=== PATIENT | male | born 1955 | race Caucasian/White ===

== ENCOUNTER → 2016-09-05 | Outpatient (CLI) | payer BC ==
[~2016-09-05] MED LIST: ASP81TEC PO; ATEN25TA PO; ATOR40TA PO; CEFU500T5 PO; CLOP75TA PO; FRSM40T PO; LISI2.5T56 PO; OMEG1CAP74 PO; POTA10CA43 PO; PRAV40TA PO; PRAV80TA2 PO; PROP1TAB77 PO; SPIR25TA3 PO; WRF5T PO
== END ==
LOC: RAD 14:23
PROVIDERS: ATTEND Nurse Practitioner Family
DX: I25.10 Atherosclerotic heart disease of native coronary artery without angina pectoris (principal); I65.23 Occlusion and stenosis of bilateral carotid arteries
CPT/HCPCS: 93923

== ENCOUNTER → 2016-09-15 | Outpatient (CLI) | payer BC ==
[2016-09-15 07:13] LABS: ALANINE AMINOTRANSFERASE 34 U/L (0-55); ALBUMIN 3.9 G/DL (3.2-4.5); ANION GAP 9 MMOL/L (5-14); ASPARTATE AMINO TRANSFERASE 25 U/L (5-34); BILIRUBIN,TOTAL 0.9 MG/DL (0.1-1.0); BLOOD UREA NITROGEN 20 MG/DL (7-18); BUN/CREATININE RATIO 17; CALCIUM 8.8 MG/DL (8.5-10.1); CARBON DIOXIDE 24 MMOL/L (21-32); CHLORIDE 106 MMOL/L (98-107); CHOLESTEROL 154 MG/DL (< 200); CREATININE SERUM 1.18 MG/DL (0.60-1.30); DIRECT LDL 87 MG/DL (1-129); GFR ESTIMATED > 60; GLUCOSE 104 MG/DL (70-105); POTASSIUM 4.4 MMOL/L (3.6-5.0); SODIUM 139 MMOL/L (135-145); TOTAL PROTEIN 6.4 G/DL (6.4-8.2); TRIGLYCERIDES 123 MG/DL (<150); VLDL CHOLESTEROL 25 MG/DL (5-40)
== END ==
LOC: LAB 06:18
PROVIDERS: ATTEND Nurse Practitioner Family
DX: I25.10 Atherosclerotic heart disease of native coronary artery without angina pectoris (principal); I65.23 Occlusion and stenosis of bilateral carotid arteries; E78.4 Other hyperlipidemia; I11.0 Hypertensive heart disease with heart failure; I50.22 Chronic systolic (congestive) heart failure; Z72.0 Tobacco use
CPT/HCPCS: 36415; 80053; 80061; 83735

== ENCOUNTER → 2017-03-16 | Outpatient (CLI) | payer BC ==
[2017-03-16 07:42] LABS: ALBUMIN 4.1 GM/DL (3.2-4.5); CREATININE SERUM 1.24 MG/DL (0.60-1.30); POTASSIUM 4.6 MMOL/L (3.6-5.0)
== END ==
LOC: LAB 06:56
PROVIDERS: ATTEND Nurse Practitioner Family
DX: I25.10 Atherosclerotic heart disease of native coronary artery without angina pectoris (principal)
CPT/HCPCS: 36415; 80053; 80061

== ENCOUNTER → 2017-04-20 | Outpatient (CLI) | payer BC | LOC: CARD 09:05 | PROVIDERS: ATTEND Nurse Practitioner Family | DX: I25.10 Atherosclerotic heart disease of native coronary artery without angina pectoris (principal); I11.0 Hypertensive heart disease with heart failure; I50.22 Chronic systolic (congestive) heart failure; I25.5 Ischemic cardiomyopathy | CPT/HCPCS: 93306 ==

== ENCOUNTER 2017-10-15 07:49 | Day surgery (SDC) | payer BC ==
[2017-10-15] VITALS (12 sets, daily range): BP systolic 117–162; BP diastolic 63–90
[~2017-10-15] VITALS: Ht 182.9 cm; Wt 108.6 kg
--- OUTSIDE RECORDS SUMMARY | 2017-10-15 07:57 | XMS REPORT ---
Author Author ANTHONY HAQ [facility] eClinicalWorks Address Unknown Phone Unavailable Care Team Providers Care School Teacher Name Role Phone ANTHONY HAQ CP Unavailable Allergies, Adverse Reactions, Alerts Substance Reaction Event Type N.K.D.A. 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 [address]-97 300 MG Orally Three times a day December 18, 2014 1 capsule Fish Oil Concentrate [facility] [address]26 1000 MG Orally 2 times a day [address] [facility] [address]-74 5 MG Orally Once a day 1-1.[address] [facility] [address]-27 50-300-40 MG Orally every 4 hrs December 14, 2014 1 capsule as needed Lipitor [facility] [address]-73 40 MG Orally Once a day [address] [facility] [address]-91 10 MG Orally Once a day 1 tablet Procedures Procedure Coding System Code Date Office Visit, Est Pt., Level 2 CPT-4 24763 Apr 22, 2015 Vital Signs Date/Time: Apr 22, 2015 Temperature 98.0 F Weight 229 lbs Height 72 in BMI 31.05 Index Blood Pressure Diastolic 88 mmHg Blood Pressure Systolic 118 mmHg Cardiac Monitoring Heart Rate 70 bpm Results No Known Results Summary Purpose eClinicalWorks Submission
--- OUTSIDE RECORDS SUMMARY | 2017-10-15 07:57 | XMS REPORT ---
Author Author ANTHONY HAQ Organization [facility] [place] [facility] Address [address] [place] [address] Care Team Providers Care Drop Man Name Role Phone ANTHONY HAQ Unavailable PROBLEMS Type Condition ICD9-CM Code NTH08-IP Code Onset Dates Condition Status SNOMED Code Problem 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 Active 291788740046653 Problem Arteriosclerotic coronary artery disease I25.10 Active 967756622588986 Problem Blood thinned due to long-term anticoagulant use Z79.01 Active 188673734 Problem History of pulmonary embolus (PE) Z86.711 Active [id number] ALLERGIES No Information ENCOUNTERS Encounter Location Date Diagnosis [place] [id number] [place] [address] 73797- 4668 Aug, Saddle embolus of pulmonary artery with acute cor pulmonale I26.02 [place] [address] [place] [id number] [place] [address] 44455- 7384 Jul, Saddle embolus of pulmonary artery with acute cor pulmonale I26.02 ; Blood thinned due to long-term anticoagulant use Z79.01 and Arteriosclerotic coronary artery disease I25.10 [place] [address] [place] [address] 04574- 1433 Jun, Saddle embolus of pulmonary artery with acute cor pulmonale I26.02 [place] [address] [place] [id number] [place] [address] 82639- 1335 Jun, 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 [place] [address] [place] [id number] [place] [address] 03539- 7785 May, Saddle embolus of pulmonary artery with acute cor pulmonale I26.02 [facility] [place] [facility] [address], [place] [address] 83[address] 16 Apr, 2017 Saddle embolus of pulmonary artery with acute cor pulmonale I26.02 [facility] [place] [facility] [address], [place] [address] 8867 15 Mar, 2017 Saddle embolus of pulmonary artery with acute cor pulmonale I26.02 [facility] [address] [place] [id number] [place] [address] [id number] Mar, Dental caries K02.9 [facility] [address] [place] [address] [id number] [place] [address] [phone] Jan, Dental examination Z01.20 [facility] [facility] [address] [place] [id number] [place] [address] 47868- 4524 Jan, Saddle embolus of pulmonary artery with acute cor pulmonale I26.02 ; Blood thinned due to long-term anticoagulant use Z79.01 and Arteriosclerotic coronary artery disease I25.10 [facility] [place] [facility] [address] [place] [address] 63625- 3368 Dec, Saddle embolus of pulmonary artery with acute cor pulmonale I26.02 [facility] [place] [facility] [address], [place] [address] 5881 Nov, Saddle embolus of pulmonary artery with acute cor pulmonale I26.02 [facility] [place] [facility] [address], [place] [address] 8323 October, [facility] [place] [facility] [address] [place] [address] 34962- 2356 October, Saddle embolus of pulmonary artery with acute cor pulmonale I26.02 [facility] [place] [facility] [address], [place] [address] 9049 Sep, Saddle embolus of pulmonary artery with acute cor pulmonale I26.02 [facility] [address] [id number] Aug, Dental examination Z01.20 [facility] [facility] [address] [place] [address] 43315- 7762 Aug, Saddle embolus of pulmonary artery with acute cor pulmonale I26.02 [place] [address] [place] [id number] [place] [address] 41556- 2744 Aug, Saddle embolus of pulmonary artery with acute cor pulmonale I26.02 [place] [address] [place] [id number] [place] [address] 78984- 6916 Jul, Saddle embolus of pulmonary artery with acute cor pulmonale I26.02 [place] [address] [place] [id number] [place] [address] 28541- 1934 Jun, 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 [place] [address] [place] [id number] [place] [address] 40551- 6987 May, Blood thinned due to long-term anticoagulant use Z79.01 [place] [address] [place] [id number] [place] [address] 30733- 3351 May, Saddle embolus of pulmonary artery with acute cor pulmonale I26.02 and Arteriosclerotic coronary artery disease I25.10 [place] [address] [place] [id number] [place] [address] 95835- 5838 Apr, Saddle embolus of pulmonary artery with acute cor pulmonale I26.02 [facility] [facility] [address] [place] [address] 28855- 3364 Mar, Saddle embolus of pulmonary artery with acute cor pulmonale I26.02 [place] [address] [place] [id number] [place] [address] 84704- 3195 Jan, [place] [address] [place] [id number] [place] [address] 32750- 8728 Jan, Encounter for immunization Z23 and History of pulmonary embolus (PE) Z86.711 [place] [address], [place] [address]- 9970 12 Jan, 2016 [place] [address] [place] [address] 61099- 9705 Jan, Saddle embolus of pulmonary artery with acute cor pulmonale I26.02 [place] [address], [place] [address]- 3400 Jan, Saddle embolus of pulmonary artery with acute cor pulmonale I26.02 [place] [address] [place] [address] 04745- 2089 14 Dec, 2015 Blood thinned due to long-term anticoagulant use Z79.01 and History of pulmonary embolus (PE) Z86.711 [place] [address] [place] [address] 44974- 0426 14 Dec, 2015 Blood thinned due to long-term anticoagulant use Z79.01 and History of pulmonary embolus (PE) Z86.711 [place] [address] [place] [address] 56821- 4155 October, Blood thinned due to long-term anticoagulant use Z79.01 [place] [address] [place] [address] 01312- 7477 Sep, History of pulmonary embolus (PE) Z86.711 [place] [address], [place] [address]- 3486 Sep, [place] [address] [place] [address] 88688- 8478 Sep, Saddle embolus of pulmonary artery 415.13 ; Abnormal blood chemistry 790.6 and Hyperlipidemia E78.5 [place] [address] [place] [address] 24516- 3084 14 Aug, 2015 Saddle embolus of pulmonary artery 415.13 and Abnormal blood chemistry 790.6 [place] [address] [place] [address] 80895- 7078 10 Aug, 2015 Saddle embolus of pulmonary artery 415.13 and Abnormal blood chemistry 790.6 [place] [address] [place] [id number] [place] [address] 09208- 1322 Jul, Saddle embolus of pulmonary artery 415.13 and Abnormal blood chemistry 790.6 [place] [address] [place] [id number] [place] [address] 13242- 4979 Jun, Saddle embolus of pulmonary artery 415.13 and Abnormal blood chemistry 790.6 [place] [address] 75894- 8498 May, Saddle embolus of pulmonary artery 415.13 and Abnormal blood chemistry 790.6 [place] [address] [place] [id number] [place] [address] 51600- 0900 Apr, Visual field defect H53.40 [place] [address] 82565- 3911 Apr, Flu vaccine need Z23 [place] [address] 71484- 5916 Apr, Saddle embolus of pulmonary artery 415.13 and Abnormal blood chemistry 790.6 [place] [address] [place] [id number] [place] [address] 14839- 1421 Mar, Saddle embolus of pulmonary artery 415.13 and Abnormal blood chemistry 790.6 [place] [address] [place] [id number] [place] [address] 44965- 4339 Jan, Saddle embolus of pulmonary artery 415.13 and Abnormal blood chemistry 790.6 [place] [address] [place] [id number] [place] [address] 78287- 0479 Dec, Saddle embolus of pulmonary artery 415.13 and Abnormal blood chemistry 790.6 [place] [address] [place] [id number] [place] [address] 25613- 6920 Nov, [place] [address] [place] [address]- 6686 15 Nov, 2014 Headache 784.0 [facility] [address] [place] [id number] [place] [address] 69313- 0496 12 Nov, 2014 [facility] [facility] [address] [place] [id number] [place] [address] 78202 2546 10 Nov, 2014 Saddle embolus of pulmonary artery 415.13 and Abnormal blood chemistry 790.6 [facility] [facility] [address] [place] [id number] [place] [address] 54521- 8696 10 Nov, 2014 [facility] [facility] [address] [place] [address] 67327- 5176 10 Nov, 2014 Saddle embolus of pulmonary artery 415.13 and Abnormal blood chemistry 790.6 [facility] [address] [place] [id number] [place] [address] 80457- 5953 October, Abnormal blood chemistry 790.6 and Saddle embolus of pulmonary artery 415.13 [facility] [facility] [address] [place] [id number] [place] [address] 42248- 1347 14 Sep, 2014 [facility] [facility] [address] [place] [address] 66400- 4031 Sep, [facility] [place] [facility] [address] [place] [address] 28581- 2564 Aug, [facility] [place] [facility] [address] [place] [address] 10325- 7296 Aug, [facility] [place] [facility] [address] [place] [address] 19839- 0410 Aug, [facility] [place] [facility] [address] [place] [address] 82291- 3239 Aug, [facility] [place] [facility] [address] [place] [id number] [place] [address] 05216- 0852 11 Aug, 2014 [facility] [place] [facility] [address] [place] [address] 89439- 3102 Aug, [facility] [place] [facility] [address] [id number] [place] [address]- 7509 Jul, [facility] [place] [facility] [address] [id number] [place] [address]- 9628 Jul, [facility] [place] [facility] [address] [id number] [place] [address]- 9408 Jun, [facility] [place] [facility] [address] [id number] [place] [address]- 9933 Jun, [facility] [place] [facility] [address] [id number] [place] [address]- 1022 May, [facility] [place] [facility] [address] [id number] [place] [address]- 8501 May, [facility] [place] [facility] [address] [id number] [place] [address]- 4470 Apr, [facility] [place] [facility] [address] [id number] [place] [address]- 5370 Apr, [facility] [place] [facility] [address] [id number] [place] [address]- 7905 29 Mar, 2014 [facility] [place] [facility] [address] [id number] [place] [address]- 8442 29 Mar, 2014 [facility] [place] [facility] [address] [id number] [place] [address]- 4664 15 Mar, 2014 [facility] [place] [facility] [address] [id number] [place] [address]- 8258 15 Mar, 2014 [facility] [place] [facility] [address] [id number] [place] [address]- 3070 05 Mar, 2014 [facility] [place] [facility] [address] [id number] [place] [address]- 254 05 Mar, 2014 [facility] [place] [facility] [address] [id number] [place] [address]- 9737 02 Mar, 2014 [facility] [place] [facility] [address] [id number] [place] [address]- 7515 Mar, [facility] [place] [facility] [address] [id number] [place] [address]- 5570 Jan, [facility] [place] [facility] [address] [id number] [place] [address]- 2832 Jan, [facility] [place] [facility] [address] [id number] [place] [address]- 2348 Jan, [facility] [place] [facility] [address] [id number] [place] [address]- 1839 Jan, [facility] [place] [facility] [address] [id number] [place] [address]- 8536 Dec, [facility] [place] [facility] [address] [id number] [place] [address]- 7955 Dec, [facility] [place] [facility] [address] [id number] [place] [address]- 8476 Dec, [facility] [place] [facility] [address] [id number] [place] [address]- 4117 Dec, [facility] [place] [facility] [address] [id number] [place] [address]- 8612 Dec, [facility] [place] [facility] [address] [id number] [place] [address]- 1159 Dec, [facility] [place] [facility] [address] [id number] [place] [address]- 0759 Dec, [facility] [place] [facility] [address] [id number] [place] [address]- 2758 Dec, [facility] [place] [facility] [address] [id number] [place] [address]- 9472 Dec, [facility] [place] [facility] [address] [id number] [place] [address]- 8279 Dec, [facility] [place] [facility] [address] [id number] [place] [address]- 4458 Dec, [facility] [place] [facility] [address] [id number] [place] [address]- 2500 Dec, [facility] [address] [id number] [place] [address]- 0945 Nov, [facility] [place] [facility] [address] [id number] [place] [address]- 2554 Nov, [facility] [place] [facility] [address] [id number] [place] [address]- 5939 October, [facility] [place] [facility] [address] [id number] [place] [address]- 4359 October, [facility] [place] [facility] [address] [id number] [place] [address]- 4670 Sep, [facility] [place] [facility] [address] [id number] [place] [address]- 4545 Sep, [facility] [place] [facility] [address] [id number] [place] [address]- 8788 Aug, [facility] [place] [facility] [address] [id number] [place] [address]- 1624 Aug, [facility] [place] [facility] [address] [id number] [place] [address]- 8248 Aug, [facility] [place] [facility] [address] [id number] [place] [address]- 8886 Aug, [facility] [place] [facility] [address] [id number] [place] [address]- 6392 Aug, [facility] [place] [facility] [address] [id number] [place] [address]- 8213 Aug, [facility] [place] [facility] [address] [id number] [place] [address]- 1485 Aug, [facility] [place] [facility] [address] [id number] [place] [address]- 7129 Aug, [facility] [place] [facility] [address] [id number] [place] [address]- 5702 Aug, [facility] [place] [facility] [address] [id number] [place] [address]- 9247 Aug, [facility] [place] [facility] [address] [id number] [place] [address]- 0800 Aug, [facility] [place] [facility] [address] [id number] [place] [address]- 0057 Aug, [facility] [place] [facility] [address] [id number] [place] [address]- 4882 Aug, [facility] [place] [facility] [address] [id number] [place] [address]- 0576 Aug, [facility] [place] [facility] [address] [id number] [place] [address]- 7238 Jul, [facility] [place] [facility] [address] [id number] [place] [address]- 3340 Jul, [facility] [place] [facility] [address] [id number] [place] [address]- 1314 Jul, [facility] [place] [facility] [address] [id number] [place] [address]- 1865 Jul, [facility] [place] [facility] [address] [id number] [place] [address]- 6867 Jul, [facility] [place] [facility] [address] [id number], [place] [address]- 3742 Jun, [facility] [place] [facility] [address] [id number], [place] [address]- 9181 Jun, [facility] [place] [facility] [address] [id number] [place] [address]- 7800 Jun, [facility] [place] [facility] [address] [id number] [place] [address]- 8275 Jun, [facility] [place] [facility] [address] [id number] [place] [address]- 2637 May, [facility] [place] [facility] [address] [id number] [place] [address]- 0926 May, [facility] [place] [facility] [address] [id number] [place] [address]- 2992 May, [facility] [place] [facility] [address] [id number] [place] 4669 May, [facility] [place] [facility] [address] [id number] [place] [address]- 5576 Apr, [facility] [place] [facility] [address] [id number] [place] [address]- 6142 Mar, [facility] [place] [facility] [address] [id number] [place] [address]- 1416 Jan, [facility] [place] [facility] [address] [id number] [place] [address]- 4627 Jan, [facility] [place] [facility] [address] [id number] [place] [address]- 9630 Jan, [facility] [place] [facility] [address] [id number] [place] [address]- 2085 Jan, [facility] [place] [facility] [address] [id number] [place] [address]- 7848 October, [facility] [place] [facility] [address] [id number] [place] [address]- 0937 Aug, [facility] [place] [facility] [address] [id number] [place] [address]- 2180 Aug, [facility] [place] [facility] [address] [id number] [place] [address]- 9781 Apr, [facility] [place] [facility] [address] [id number] [place] [address]- 6531 Apr, [facility] [place] [facility] [address] [id number] [place] [address]- 9923 May, [facility] [place] [facility] [address] [id number] [place] 3610 May, [facility] [place] [facility] [address] [facility] [id number], [place] [address]- 0496 May, [facility] [place] [facility] [address] [facility] [id number], [place] [address]- 9636 Apr, [facility] [place] [facility] [address] [facility] [id number], [place] [address]- 2546 Jul, [facility] [place] [facility] [address] [facility] [id number], [place] [address]- 2546 Jun, IMMUNIZATIONS No Known Immunizations SOCIAL HISTORY Never Assessed REASON FOR VISIT lab PLAN OF CARE VITAL SIGNS MEDICATIONS Unknown Medications RESULTS Name Result Date Reference Range INR (IN HOUSE) 2017-01-15 INR 1.7 1.10 - 3.30 PREVIOUS INR 3.8 CURRENT COUMADIN DOSE 5 mg qd NEW COUMADIN DOSE 1 1/2 [place] & w, 1 other days Lot # [id number] Exp date 08/2017 PROCEDURES Procedure Date Ordered Result Body Site PROTHROMBIN TIME January 15, 2017 INSTRUCTIONS MEDICATIONS ADMINISTERED No Known Medications MEDICAL (GENERAL) HISTORY Type Description Date Medical History cardiovascular disorder-CO on 05/23/10 with stent x 1 Medical History hypertension Medical History hyperlipidemia Medical History respiratory disorder- Saddle PE 02/05/13 (Dr. Winn) Medical History hematologic disorder-DVT 02/03/13 ([facility]) Surgical History back surgery Surgical History angioplasty-stent x 2 05/2010 Surgical History abdominal surgery-Venacava filter placed 01/2013 Hospitalization History DVT that lead to a saddle PE. Was shipped to [facility] in [place], [place]. 01/2013
--- OUTSIDE RECORDS SUMMARY | 2017-10-15 07:57 | XMS REPORT ---
Author Author ANTHONY HAQ [facility] eClinical[employer] Address Unknown Phone Unavailable Care Team Providers Care [employer] Name Role Phone ANTHONY HAQ CP Unavailable Allergies, Adverse Reactions, Alerts Substance Reaction Event Type N.K.D.A. Info Not Available Non Drug Allergy Problems Problem Type Condition Code Onset Dates Condition Status Problem History of pulmonary embolus (PE) Z86.711 Active Assessment History of pulmonary embolus (PE) Z86.711 Active Problem Blood thinned due to long-term anticoagulant use Z79.01 Active Medications Medication Code System Code Instructions Start Date End Date Status Dosage Lipitor [facility] [address]-03 40 MG Orally Once a day 1 tablet Fish Oil Concentrate [facility] [address]04 1000 MG Orally 2 times a day 2 capsules Warfarin Sodium [facility] 65926245051 5MG TAKE 1 TABLET BY MOUTH SUNDAY, SUNDAY, SUNDAY. TAKE 1 AND 1/2 TABLETS BY MOUTH DAILY ON SUNDAY, SUNDAY, SUNDAY, AND SUNDAY Atorvastatin Calcium [facility] [id number] 40 MG TAKE ONE TABLET BY MOUTH DAILY Coumadin [facility] [address]-79 7.5 MG Orally Once a day 1-1.[address] [facility] [address]-79 300 MG Orally Three times a day December 18, [address]in[address] [facility] [address]-14 10 MG Orally Once a day [address] [facility] [address]-32 50-300-40 MG Orally every 4 hrs December 14, 2014 1 capsule as needed Procedures Procedure Coding System Code Date Office Visit, Est Pt., Level 2 CPT-4 29850 October 25, 2015 PROTHROMBIN TIME CPT-4 04560 October 25, 2015 Vital Signs Date/Time: October 25, 2015 Temperature 98.7 F Weight 235.6 lbs Height 72 in BMI 31.95 Index Blood Pressure Diastolic 72 mmHg Blood Pressure Systolic 110 mmHg Cardiac Monitoring Heart Rate 72 bpm Results No Known Results Summary Purpose eClinicalWorks Submission
--- OUTSIDE RECORDS SUMMARY | 2017-10-15 07:58 | XMS REPORT ---
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
--- OUTSIDE RECORDS SUMMARY | 2017-10-15 07:58 | XMS REPORT ---
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
--- OUTSIDE RECORDS SUMMARY | 2017-10-15 07:58 | XMS REPORT ---
Author Author ANTHONY HAQ [facility] Address [address] [place] [address] Care Team Providers Care Cutting Inspector Name Role Phone ANTHONY HAQ Unavailable PROBLEMS Type Condition ICD9-CM Code [id number] Code Onset Dates Condition Status SNOMED Code Problem Blood thinned due to long-term anticoagulant use Z79.01 Active 146124032 Problem History of pulmonary embolus (PE) Z86.711 Active 620132819 Assessment Saddle embolus of pulmonary artery with acute cor pulmonale I26.02 Mar, Active ALLERGIES Unknown Allergies SOCIAL HISTORY No smoking Hx information available PLAN OF CARE VITAL SIGNS MEDICATIONS Unknown Medications RESULTS Name Result Date Reference Range INR (IN HOUSE) 2016-03-10 INR 2.8 1.10 - 3.30 PREVIOUS INR 2.4 CURRENT COUMADIN DOSE NEW COUMADIN DOSE Lot # [id number] Exp date 03/2016 PROCEDURES Procedure Date Ordered Related Diagnosis Body Site PROTHROMBIN TIME Mar 10, 2016 IMMUNIZATIONS No Known Immunizations
--- OUTSIDE RECORDS SUMMARY | 2017-10-15 07:58 | XMS REPORT ---
Author Author ANTHONY HAQ [facility] Address [address] [place] [address] Care Team Providers Care Regional Planner Name Role Phone ANTHONY HAQ Unavailable PROBLEMS Type Condition ICD9-CM Code [id number] Code Onset Dates Condition Status SNOMED Code Problem 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 Active Problem Arteriosclerotic coronary artery disease I25.10 Active 779357581118955 Problem Blood thinned due to long-term anticoagulant use Z79.01 Active 948924287 Problem History of pulmonary embolus (PE) Z86.711 Active 839622594 ALLERGIES No Known Allergies SOCIAL HISTORY No smoking Hx information available PLAN OF CARE VITAL SIGNS MEDICATIONS No Known Medications RESULTS Name Result Date Reference Range INR (IN HOUSE) 2016-07-19 INR 2.2 1.10 - 3.30 PREVIOUS INR 3.0 CURRENT COUMADIN DOSE See internal notes NEW COUMADIN DOSE Lot # [id number] Exp date 05/2017 PROCEDURES Procedure Date Ordered Related Diagnosis Body Site PROTHROMBIN TIME Jul 19, 2016 IMMUNIZATIONS No Known Immunizations
--- OUTSIDE RECORDS SUMMARY | 2017-10-15 07:58 | XMS REPORT ---
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 TAKE 1 AND 1/2 TABLETS BY MOUTH DAILY ON SUNDAY, SUNDAY, SUNDAY, AND SUNDAY Active RESULTS No Results PROCEDURES No Known procedures IMMUNIZATIONS No Known Immunizations
--- OUTSIDE RECORDS SUMMARY | 2017-10-15 07:58 | XMS REPORT ---
Author Author JAEL ASHER Organization [employer] Address Unknown Phone Unavailable Care Team Providers Care Gemologist Name Role Phone JAEL ASHER CP Unavailable Allergies No Known Allergies Problems Problem Type Condition Code Onset Dates Condition Status Problem Blood thinned due to long-term anticoagulant use Z79.01 Active Problem History of pulmonary embolus (PE) Z86.711 Active Problem Arteriosclerotic coronary artery disease I25.10 Active Assessment Saddle embolus of pulmonary artery with acute cor pulmonale I26.02 Active Assessment Arteriosclerotic coronary artery disease I25.10 Active Medications No Known Medications Procedures Procedure Coding System Code Date ASSAY OF MAGNESIUM CPT-4 35137 May 05, 2016 VENIPUNCT, ROUTINE* CPT-4 36741 May 05, 2016 BASIC METABOLIC PANEL CPT-4 40422 May 05, 2016 Results Name Result Date Reference Range Unit Abnormality Flag ROUTINE VENIPUNCTURE Summary Purpose [employer] Submission
--- OUTSIDE RECORDS SUMMARY | 2017-10-15 07:58 | XMS REPORT ---
Author Author ANTHONY HAQ [facility] [employer] Address Unknown Phone Unavailable Care Team Providers Care Sewer And Cutter Finger Buff Material Name Role Phone ANTHONY HAQ Unavailable Allergies No Known Allergies Problems Problem Type Condition Code Onset Dates Condition Status Problem History of pulmonary embolus (PE) Z86.711 Active Assessment Saddle embolus of pulmonary artery with acute cor pulmonale I26.02 Active Problem Blood thinned due to long-term anticoagulant use Z79.01 Active Medications No Known Medications Procedures Procedure Coding System Code Date ASSAY OF MAGNESIUM CPT-4 18354 Feb 10, 2016 COMPREHEN METABOLIC PANEL CPT-4 23089 Feb 10, 2016 PROTHROMBIN TIME CPT-4 50100 Feb 10, 2016 VENIPUNCT, ROUTINE* CPT-4 68164 Feb 10, 2016 Results No Known Results Summary Purpose [employer] Submission
--- OUTSIDE RECORDS SUMMARY | 2017-10-15 07:58 | XMS REPORT ---
Author Author ANTHONY HAQ [facility] e[employer] Address Unknown Phone Unavailable Care Team Providers Care Veneer Repairer Machine Name Role Phone ANTHONY HAQ Unavailable Allergies No Known Allergies Problems Problem Type Condition Code Onset Dates Condition Status Problem Blood thinned due to long-term anticoagulant use Z79.01 Active Problem History of pulmonary embolus (PE) Z86.711 Active Problem Arteriosclerotic coronary artery disease I25.10 Active Assessment Blood thinned due to long-term anticoagulant use Z79.01 Active Medications No Known Medications Procedures Procedure Coding System Code Date PROTHROMBIN TIME CPT-4 86802 May 23, 2016 Results Name Result Date Reference Range Unit Abnormality Flag INR (IN HOUSE) ----Exp date [id number] ----INR 3.0 [id number] 1.10 - 3.30 ----PREVIOUS INR 2.5 [id number] ----CURRENT COUMADIN DOSE see internal [id number] ----Lot # [id number] Summary Purpose [employer]ClinicalWorks Submission
--- OUTSIDE RECORDS SUMMARY | 2017-10-15 07:58 | XMS REPORT ---
Author Author ANTHONY HAQ [facility] eClinical[employer] Address Unknown Phone Unavailable Care Team Providers Care Event Sales Representative Name Role Phone ANTHONY HAQ Unavailable Allergies No Known Allergies Problems Problem Type Condition Code Onset Dates Condition Status Problem History of pulmonary embolus (PE) Z86.711 Active Problem Blood thinned due to long-term anticoagulant use Z79.01 Active Medications No Known Medications Results No Known Results Summary Purpose [employer]ClinicalWorks Submission
--- OUTSIDE RECORDS SUMMARY | 2017-10-15 07:58 | XMS REPORT ---
Author Author ANTHONY HAQ [facility] e[employer] Address Unknown Phone Unavailable Care Team Providers Care Veneer Stock Grader Name Role Phone ANTHONY HAQ Unavailable Allergies No Known Allergies Problems Problem Type Condition Code Onset Dates Condition Status Problem History of pulmonary embolus (PE) Z86.711 Active Problem Blood thinned due to long-term anticoagulant use Z79.01 Active Medications Medication Code System Code Instructions Start Date End Date Status Dosage Warfarin Sodium [facility] [id number] 5MG TAKE 1 TABLET BY MOUTH SUNDAY, SUNDAY, SUNDAY. TAKE 1 AND 1/2 TABLETS BY MOUTH DAILY ON SUNDAY, SUNDAY, SUNDAY, AND SUNDAY Results No Known Results Summary Purpose [employer]ClinicalWorks Submission
--- OUTSIDE RECORDS SUMMARY | 2017-10-15 07:58 | XMS REPORT ---
Author Author ROSA MARIA FUENTES Organization [employer] Address Unknown Phone Unavailable Care Team Providers Care Cost Estimating Clerk Name Role Phone ROSA MARIA FUENTES Unavailable Allergies No Known Allergies Problems Problem Type Condition Code Onset Dates Condition Status Problem Other chronic pain 338.29 Active Problem Loss of weight 783.21 Active Problem Saddle embolus of pulmonary artery 415.13 Active Assessment Flu vaccine need Z23 Active Medications No Known Medications Procedures Procedure Coding System Code Date SINGLE IMMUNIZATION ADMIN CPT-4 32514 Apr 21, 2015 FLUARIX QUAD (3 & UP)-GSK-2014 CPT-4 38702 Apr 21, 2015 Results No Known Results Immunizations Vaccine Administration Date FLUARIX QUAD (3 & UP)-GSK-2014Apr 21, 2015 Summary Purpose [employer]ClinicalWorks Submission
--- OUTSIDE RECORDS SUMMARY | 2017-10-15 07:58 | XMS REPORT ---
Author Author ANTHONY HAQ [facility] [employer] Address Unknown Phone Unavailable Care Team Providers Care Director Of Compensation Name Role Phone ANTHONY HAQ Unavailable Allergies [...] Coding System Code Date PROTHROMBIN TIME CPT-4 65219 May 13, 2015 Results No Known Results Summary Purpose [employer]ClinicalWorks Submission
--- OUTSIDE RECORDS SUMMARY | 2017-10-15 07:58 | XMS REPORT ---
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 Problem Arteriosclerotic coronary artery disease I25.10 Active 046462348383642 Problem Blood thinned due to long-term anticoagulant use Z79.01 Active 432230516 Problem History of pulmonary embolus (PE) Z86.711 Active 895523355 ALLERGIES No Information SOCIAL HISTORY Never Assessed PLAN OF CARE VITAL SIGNS MEDICATIONS Unknown Medications RESULTS No Results PROCEDURES No Known procedures IMMUNIZATIONS No Known Immunizations MEDICAL (GENERAL) HISTORY Type Description Date Medical History cardiovascular disorder-[place] on 05/23/10 with stent x 1 Medical History hypertension Medical History hyperlipidemia Medical History respiratory disorder- Saddle PE 02/05/13 (Dr. Winn) Medical History hematologic disorder-DVT 02/03/13 ([facility] Surgical History back surgery Surgical History angioplasty-stent x 2 05/2010 Surgical History abdominal surgery-Venacava filter placed 01/2013 Hospitalization History DVT that lead to a saddle PE. Was shipped to [facility] in [place], [place]. 01/2013
--- OUTSIDE RECORDS SUMMARY | 2017-10-15 07:58 | XMS REPORT ---
Author Author ANTHONY HAQ [facility] e[employer] Address Unknown Phone Unavailable Care Team Providers Care Air Traffic Control Manager Name Role Phone ANTHONY HAQ CP Unavailable Allergies No Known Allergies Problems [...]
--- OUTSIDE RECORDS SUMMARY | 2017-10-15 07:58 | XMS REPORT ---
Author Author ANTHONY HAQ [facility] [employer] Address Unknown Phone Unavailable Care Team Providers Care Candy Wrapping Machine Operator Name Role Phone ANTHONY HAQ Unavailable Allergies No Known Allergies Problems Problem Type Condition Code Onset Dates Condition Status Problem History of pulmonary embolus (PE) Z86.711 Active Assessment Blood thinned due to long-term anticoagulant use Z79.01 Active Problem Blood thinned due to long-term anticoagulant use Z79.01 Active Assessment History of pulmonary embolus (PE) Z86.711 Active Medications No Known Medications Procedures Procedure Coding System Code Date PROTHROMBIN TIME CPT-4 60361 January 13, 2016 Results No Known Results Summary Purpose [employer]ClinicalWorks Submission
--- OUTSIDE RECORDS SUMMARY | 2017-10-15 07:58 | XMS REPORT ---
Author Author ANTHONY HAQ [facility] [employer] Address Unknown Phone Unavailable Care Team Providers Care Concreter Name Role Phone ANTHONY HAQ Unavailable Allergies [...] Coding System Code Date PROTHROMBIN TIME CPT-4 52980 Jul 12, 2015 Results No Known Results Summary Purpose eClinicalWorks Submission
--- OUTSIDE RECORDS SUMMARY | 2017-10-15 07:58 | XMS REPORT ---
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 Problem Arteriosclerotic coronary artery disease I25.10 Active 708518923724064 Problem Blood thinned due to long-term anticoagulant use Z79.01 Active 086232244 Problem History of pulmonary embolus (PE) Z86.711 Active 358421353 ALLERGIES No Information SOCIAL HISTORY Never Assessed PLAN OF CARE VITAL SIGNS MEDICATIONS Unknown Medications RESULTS Name Result Date Reference Range INR (IN HOUSE) 2016-09-15 INR 2.7 1.10 - 3.30 PREVIOUS INR 2.0 CURRENT COUMADIN DOSE See internal notes NEW COUMADIN DOSE Lot # [id number] Exp date 07/2017 PROCEDURES Procedure Date Ordered Result Body Site PROTHROMBIN TIME September 15, 2016 IMMUNIZATIONS No Known Immunizations MEDICAL (GENERAL) HISTORY Type Description Date Medical History cardiovascular disorder-[place] on 05/23/10 with stent x 1 Medical History hypertension Medical History hyperlipidemia Medical History respiratory disorder- Saddle PE 02/05/13 (Dr. Winn) Medical History hematologic disorder-DVT 02/03/13 ([facility]) Surgical History back surgery Surgical History angioplasty-stent x 2 05/2010 Surgical History abdominal surgery-Venacava filter placed 01/2013 Hospitalization History DVT that lead to a saddle PE. Was shipped to [facility] in [place], [place]. 01/2013
--- OUTSIDE RECORDS SUMMARY | 2017-10-15 07:58 | XMS REPORT ---
Author Author ANTHONY HAQ [facility] eClinical[employer] Address Unknown Phone Unavailable Care Team Providers Care Process Control Specialist Name Role Phone ANTHONY HAQ Unavailable Allergies No Known Allergies Problems Problem Type Condition Code Onset Dates Condition Status Problem History of pulmonary embolus (PE) Z86.711 Active Assessment Saddle embolus of pulmonary artery with acute cor pulmonale I26.02 Active Problem Blood thinned due to long-term anticoagulant use Z79.01 Active Medications No Known Medications Procedures Procedure Coding System Code Date PROTHROMBIN TIME CPT-4 41605 Apr 11, 2016 Results No Known Results Summary Purpose eClinicalWorks Submission
--- OUTSIDE RECORDS SUMMARY | 2017-10-15 07:59 | XMS REPORT ---
Author Author ANTHONY HAQ [facility] eClinicalWorks Address Unknown Phone Unavailable Care Team Providers Care Research Quality Assurance Analyst Name Role Phone ANTHONY HAQ Unavailable Allergies [...] Coding System Code Date PROTHROMBIN TIME CPT-4 14741 Jun 11, 2015 Results No Known Results Summary Purpose eClinicalWorks Submission
--- OUTSIDE RECORDS SUMMARY | 2017-10-15 08:00 | XMS REPORT | Continuity of Care Document ---
Author Author [facility] Address Unknown Phone Unavailable Allergies Active Description Code Type Severity Reaction Onset Reported/Identified Relationship to Patient Clinical Status Yes No Known Drug Allergies [id number] Drug Allergy Unknown N/A 05/23/2010 Medications There is no data. Problems Date Dx Coded Attending Type Code Diagnosis Diagnosed By 06/09/2010 EUN SHARP, ANTHONY 466.0 BRONCHITIS, ACUTE 06/09/2010 EUN SHARP, ANTHONY 786.52 CHEST WALL PAIN 06/09/2010 466.0 BRONCHITIS, ACUTE 06/09/2010 786.52 CHEST WALL PAIN 06/09/2010 466.0 BRONCHITIS, ACUTE 06/09/2010 786.52 CHEST WALL PAIN 06/09/2010 ANTHONY HAQ MD 466.0 BRONCHITIS, ACUTE 06/09/2010 EUN SHARP, ANTHONY 786.52 CHEST WALL PAIN 06/09/2010 EUN SHARP, ANTHONY 466.0 BRONCHITIS, ACUTE 06/09/2010 EUN SHARP, ANTHONY 786.52 CHEST WALL PAIN 06/09/2010 EUN SHARP, ANTHONY 466.0 BRONCHITIS, ACUTE 06/09/2010 EUN SHARP, ANTHONY 786.52 CHEST WALL PAIN 06/09/2010 EUN SHARP, ANTHONY 466.0 BRONCHITIS, ACUTE 06/09/2010 EUN SHARP, ANTHONY 786.52 CHEST WALL PAIN 06/09/2010 EUN SHARP, ANTHONY 466.0 BRONCHITIS, ACUTE 06/09/2010 EUN SHARP, ANTHONY 786.52 CHEST WALL PAIN 06/09/2010 EUN SHARP, ANTHONY 466.0 BRONCHITIS, ACUTE 06/09/2010 EUN SHARP, ANTHONY 786.52 CHEST WALL PAIN 06/09/2010 EUN SHARP, ANTHONY 466.0 BRONCHITIS, ACUTE 06/09/2010 EUN SHARP, ANTHONY 786.52 CHEST WALL PAIN 06/09/2010 EUN SHARP, ANTHONY 466.0 BRONCHITIS, ACUTE 06/09/2010 EUN SHARP, ANTHONY 786.52 CHEST WALL PAIN 06/09/2010 EUN SHARP, ANTHONY 466.0 BRONCHITIS, ACUTE 06/09/2010 EUN SHARP, ANTHONY 786.52 CHEST WALL PAIN 06/09/2010 EUN SHARP, ANTHONY 466.0 BRONCHITIS, ACUTE 06/09/2010 EUN SHARP, ANTHONY 786.52 CHEST WALL PAIN 06/09/2010 EUN SHARP, ANTHONY 466.0 BRONCHITIS, ACUTE 06/09/2010 EUN SHARP, ANTHONY 786.52 CHEST WALL PAIN 06/09/2010 EUN SHARP, ANTHONY 466.0 BRONCHITIS, ACUTE 06/09/2010 EUN SHARP, ANTHONY 786.52 CHEST WALL PAIN 06/09/2010 EUN SHARP, ANTHONY 466.0 BRONCHITIS, ACUTE 06/09/2010 EUN SHARP, ANTHONY 786.52 CHEST WALL PAIN 06/09/2010 NAYAK DO, NEGRO K 466.0 BRONCHITIS, ACUTE 06/09/2010 NAYAK DO, NEGRO K 786.52 CHEST WALL PAIN 06/09/2010 AVERY MCCOY CABRERA T 466.0 BRONCHITIS, ACUTE 06/09/2010 AVERY MCCOY CABRERA T 786.52 CHEST WALL PAIN 06/09/2010 NAYAK DO, NEGRO K 466.0 BRONCHITIS, ACUTE 06/09/2010 NAYAK DO, NEGRO K 786.52 CHEST WALL PAIN 06/09/2010 NAYAK DO, NEGRO K 466.0 BRONCHITIS, ACUTE 06/09/2010 NAYAK DO, NEGRO K 786.52 CHEST WALL PAIN 06/09/2010 ANTHONY HAQ MD 466.0 BRONCHITIS, ACUTE 06/09/2010 EUN SHARP, ANTHONY 786.52 CHEST WALL PAIN 06/09/2010 ANTHONY HAQ MD 466.0 BRONCHITIS, ACUTE 06/09/2010 EUN SHARP, ANTHONY 786.52 CHEST WALL PAIN 06/09/2010 466.0 BRONCHITIS, ACUTE 06/09/2010 786.52 CHEST WALL PAIN 06/09/2010 ANTHONY HAQ MD 466.0 BRONCHITIS, ACUTE 06/09/2010 EUN SHARP, ANTHONY 786.52 CHEST WALL PAIN 06/09/2010 ANTHONY HAQ MD 466.0 BRONCHITIS, ACUTE 06/09/2010 EUN SHARP, ANTHONY 786.52 CHEST WALL PAIN 06/09/2010 ANTHONY HAQ MD 466.0 BRONCHITIS, ACUTE 06/09/2010 EUN SHARP, ANTHONY 786.52 CHEST WALL PAIN 06/09/2010 WHITE DDS, BRANDON D 466.0 BRONCHITIS, ACUTE 06/09/2010 WHITE DDS, BRANDON D 786.52 CHEST WALL PAIN 06/09/2010 EUN SHARP, ANTHONY 466.0 BRONCHITIS, ACUTE 06/09/2010 EUN SHARP, ANTHONY 786.52 CHEST WALL PAIN 06/09/2010 EUN SHARP, ANTHONY 466.0 BRONCHITIS, ACUTE 06/09/2010 EUN SHARP, ANTHONY 786.52 CHEST WALL PAIN 06/09/2010 EUN SHARP, ANTHONY 466.0 BRONCHITIS, ACUTE 06/09/2010 EUN SHARP, ANTHONY 786.52 CHEST WALL PAIN 06/09/2010 EUN SHARP, ANTHONY 466.0 BRONCHITIS, ACUTE 06/09/2010 EUN SHARP, ANTHONY 786.52 CHEST WALL PAIN 06/09/2010 EUN SHARP, ANTHONY 466.0 BRONCHITIS, ACUTE 06/09/2010 EUN SHARP, ANTHONY 786.52 CHEST WALL PAIN 06/09/2010 EUN SHARP, ANTHONY 466.0 BRONCHITIS, ACUTE 06/09/2010 EUN SHARP, ANTHONY 786.52 CHEST WALL PAIN 06/09/2010 EUN SHARP, ANTHONY 466.0 BRONCHITIS, ACUTE 06/09/2010 EUN SHARP, ANTHONY 786.52 CHEST WALL PAIN 07/14/2010 ANTHONY HAQ MD 789.03 abdominal pain in the right lower belly (RLQ) 07/14/2010 789.03 abdominal pain in the right lower belly (RLQ) 07/14/2010 789.03 abdominal pain in the right lower belly (RLQ) 07/14/2010 ANTHONY HAQ MD 789.03 abdominal pain in the right lower belly (RLQ) 07/14/2010 ANTHONY HAQ MD 789.03 abdominal pain in the right lower belly (RLQ) 07/14/2010 ANTHNOY HAQ MD 789.03 abdominal pain in the right lower belly (RLQ) 07/14/2010 ANTHONY HAQ MD 789.03 abdominal pain in the right lower belly (RLQ) 07/14/2010 ANTHONY HAQ MD 789.03 abdominal pain in the right lower belly (RLQ) 07/14/2010 ANTHONY HAQ MD 789.03 abdominal pain in the right lower belly (RLQ) 07/14/2010 ANTHONY HAQ MD 789.03 abdominal pain in the right lower belly (RLQ) 07/14/2010 EUN SHARP, ANTHONY 789.03 abdominal pain in the right lower belly (RLQ) 07/14/2010 EUN SHARP, ANTHONY 789.03 abdominal pain in the right lower belly (RLQ) 07/14/2010 ANTHONY HAQ MD 789.03 abdominal pain in the right lower belly (RLQ) 07/14/2010 ANTHONY HAQ MD 789.03 abdominal pain in the right lower belly (RLQ) 07/14/2010 EUN SHARP, ANTHONY 789.03 abdominal pain in the right lower belly (RLQ) 07/14/2010 ANTHONY HAQ MD 789.03 abdominal pain in the right lower belly (RLQ) 07/14/2010 NEGRO NAYAK DO 789.03 abdominal pain in the right lower belly (RLQ) 07/14/2010 CABRERA VARELA APRN 789.03 abdominal pain in the right lower belly (RLQ) 07/14/2010 NEGRO NAYAK DO 789.03 abdominal pain in the right lower belly (RLQ) 07/14/2010 NEGRO NAYAK DO 789.03 ABDOMINAL PAIN IN THE RIGHT LOWER BELLY (RLQ) 07/14/2010 ANTHONY HAQ MD 789.03 ABDOMINAL PAIN IN THE RIGHT LOWER BELLY (RLQ) 07/14/2010 ANTHONY HAQ MD 789.03 ABDOMINAL PAIN IN THE RIGHT LOWER BELLY (RLQ) 07/14/2010 789.03 abdominal pain in the right lower belly (RLQ) 07/14/2010 ANTHONY HAQ MD 789.03 ABDOMINAL PAIN IN THE RIGHT LOWER BE[place] (RLQ) 07/14/2010 ANTHONY HAQ MD 789.03 ABDOMINAL PAIN IN THE RIGHT LOWER BE[place] (RLQ) 07/14/2010 ANTHONY HAQ MD 789.03 ABDOMINAL PAIN IN THE RIGHT LOWER BELLY (RLQ) 07/14/2010 BRANDON CAMPBELL DDS 789.03 ABDOMINAL PAIN IN THE RIGHT LOWER BELLY (RLQ) 07/14/2010 ANTHONY HAQ MD 789.03 ABDOMINAL PAIN IN THE RIGHT LOWER BELLY (RLQ) 07/14/2010 EUN SHARP, ANTHONY 789.03 ABDOMINAL PAIN IN THE RIGHT LOWER BELLY (RLQ) 07/14/2010 EUN SHARP, ANTHONY 789.03 ABDOMINAL PAIN IN THE RIGHT LOWER BELLY (RLQ) 07/14/2010 EUN SHARP, ANTHONY 789.03 ABDOMINAL PAIN IN THE RIGHT LOWER BELLY (RLQ) 07/14/2010 EUN SHARP, ANTHONY 789.03 ABDOMINAL PAIN IN THE RIGHT LOWER BELLY (RLQ) 07/14/2010 EUN SHARP, ANTHONY 789.03 ABDOMINAL PAIN IN THE RIGHT LOWER BELLY (RLQ) 07/14/2010 EUN SHARP, ANTHONY 789.03 ABDOMINAL PAIN IN THE RIGHT LOWER BELLY (RLQ) 09/24/2012 ANTHONY HAQ MD 338.29 OTHER CHRONIC PAIN 09/24/2012 ANTHONY HAQ MD 783.21 LOSS OF WEIGHT 09/24/2012 338.29 OTHER CHRONIC PAIN 09/24/2012 783.21 LOSS OF WEIGHT 09/24/2012 338.29 OTHER CHRONIC PAIN 09/24/2012 783.21 LOSS OF WEIGHT 09/24/2012 ANTHONY HAQ MD 338.29 OTHER CHRONIC PAIN 09/24/2012 ANTHONY HAQ MD 783.21 LOSS OF WEIGHT 09/24/2012 ANTHONY HAQ MD 338.29 OTHER CHRONIC PAIN 09/24/2012 ANTHONY HAQ MD 783.21 LOSS OF WEIGHT 09/24/2012 ANTHONY HAQ MD 338.29 OTHER CHRONIC PAIN 09/24/2012 ANTHONY HAQ MD 783.21 LOSS OF WEIGHT 09/24/2012 ANTHONY HAQ MD 338.29 OTHER CHRONIC PAIN 09/24/2012 ANTHONY HAQ MD 783.21 LOSS OF WEIGHT 09/24/2012 ANTHONY HAQ MD 338.29 OTHER CHRONIC PAIN 09/24/2012 ANTHONY HAQ MD 783.21 LOSS OF WEIGHT 09/24/2012 ANTHONY HAQ MD 338.29 OTHER CHRONIC PAIN 09/24/2012 ANTHONY HAQ MD 783.21 LOSS OF WEIGHT 09/24/2012 ANTHONY HAQ MD 338.29 OTHER CHRONIC PAIN 09/24/2012 ANTHONY HAQ MD 783.21 LOSS OF WEIGHT 09/24/2012 ANTHONY HAQ MD 338.29 OTHER CHRONIC PAIN 09/24/2012 ANTHONY HAQ MD 783.21 LOSS OF WEIGHT 09/24/2012 ANTHONY HAQ MD 338.29 OTHER CHRONIC PAIN 09/24/2012 ANTHONY HAQ MD 783.21 LOSS OF WEIGHT 09/24/2012 ANTHONY HAQ MD 338.29 OTHER CHRONIC PAIN 09/24/2012 ANTHONY HAQ MD 783.21 LOSS OF WEIGHT 09/24/2012 ANTHONY HAQ MD 338.29 OTHER CHRONIC PAIN 09/24/2012 ANTHONY HAQ MD 783.21 LOSS OF WEIGHT 09/24/2012 ANTHONY HAQ MD 338.29 OTHER CHRONIC PAIN 09/24/2012 ANTHONY HAQ MD 783.21 LOSS OF WEIGHT 09/24/2012 ANTHONY HAQ MD 338.29 OTHER CHRONIC PAIN 09/24/2012 ANTHONY HAQ MD 783.21 LOSS OF WEIGHT 09/24/2012 MIGUEL NAYAK DOA K 338.29 OTHER CHRONIC PAIN 09/24/2012 NAEL IRIZARRY NEGRO K 783.21 LOSS OF WEIGHT 09/24/2012 CABRERA VARELA APRN 338.29 OTHER CHRONIC PAIN 09/24/2012 CABRERA VARELA APRN 783.21 LOSS OF WEIGHT 09/24/2012 NAYAK DO NEGRO K 338.29 OTHER CHRONIC PAIN 09/24/2012 NAYAK MIGUEL IRIZARRYA K 783.21 LOSS OF WEIGHT 09/24/2012 NAYAK DO NEGRO K 338.29 OTHER CHRONIC PAIN 09/24/2012 NAYAK DO NEGRO K 783.21 LOSS OF WEIGHT 09/24/2012 ANTHONY HAQ MD 338.29 OTHER CHRONIC PAIN 09/24/2012 ANTHONY HAQ MD 783.21 LOSS OF WEIGHT 09/24/2012 ANTHONY HAQ MD 338.29 OTHER CHRONIC PAIN 09/24/2012 ANTHONY HAQ MD 783.21 LOSS OF WEIGHT 09/24/2012 ANTHONY HAQ MD 338.29 OTHER CHRONIC PAIN 09/24/2012 ANTOHNY HAQ MD 783.21 LOSS OF WEIGHT 09/24/2012 ANTHONY HAQ MD 338.29 OTHER CHRONIC PAIN 09/24/2012 ANTHONY HAQ MD 783.21 LOSS OF WEIGHT 09/24/2012 ANTHONY HAQ MD 338.29 OTHER CHRONIC PAIN 09/24/2012 ANTHONY HAQ MD 783.21 LOSS OF WEIGHT 09/24/2012 WHITE DDS, BRANDON D 338.29 OTHER CHRONIC PAIN 09/24/2012 WHITE DDS, BRANDON D 783.21 LOSS OF WEIGHT 09/24/2012 EUN SHARP, ANTHONY 338.29 OTHER CHRONIC PAIN 09/24/2012 ANTHONY HAQ MD 783.21 LOSS OF WEIGHT 09/24/2012 EUN SHARP, ANTHONY 338.29 OTHER CHRONIC PAIN 09/24/2012 ANTHONY HAQ MD 783.21 LOSS OF WEIGHT 09/24/2012 EUN SHARP, ANTHONY 338.29 OTHER CHRONIC PAIN 09/24/2012 ANTHONY HAQ MD 783.21 LOSS OF WEIGHT 09/24/2012 EUN SHARP, ANTHONY 338.29 OTHER CHRONIC PAIN 09/24/2012 ANTHONY HAQ MD 783.21 LOSS OF WEIGHT 09/24/2012 EUN SHARP, ANTHONY 338.29 OTHER CHRONIC PAIN 09/24/2012 ANTHONY HAQ MD 783.21 LOSS OF WEIGHT 09/24/2012 EUN SHARP, ANTHONY 338.29 OTHER CHRONIC PAIN 09/24/2012 ANTHONY HAQ MD 783.21 LOSS OF WEIGHT 09/24/2012 EUN SHARP, ANTHONY 338.29 OTHER CHRONIC PAIN 09/24/2012 ANTHONY HAQ MD 783.21 LOSS OF WEIGHT 02/17/2013 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 02/17/2013 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 02/17/2013 ANTHONY HAQ MD 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 02/17/2013 ANTHONY HAQ MD 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 02/17/2013 ANTHONY HAQ MD 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 02/17/2013 ANTHONY HAQ MD 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 02/17/2013 ANTHONY HAQ MD 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 02/17/2013 ANTHONY HAQ MD 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 02/17/2013 ANTHONY HAQ MD 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 02/17/2013 ANTHONY HAQ MD 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 02/17/2013 ANTHONY HAQ MD 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 02/17/2013 ANTHONY HAQ MD 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 02/17/2013 ANTHONY HAQ MD 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 02/17/2013 ANTHONY HAQ MD 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 02/17/2013 ANTHONY HAQ MD 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 02/17/2013 NEGRO NAYAK DO 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 02/17/2013 CABRERA VARELA APRN 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 02/17/2013 NEGRO NAYAK DO 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 02/17/2013 NEGRO NAYAK DO 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 02/17/2013 ANTHONY HAQ MD 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 02/17/2013 ANTHONY HAQ MD 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 02/17/2013 ANTHONY HAQ MD 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 02/17/2013 ANTHONY HAQ MD 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 02/17/2013 ANTHONY HAQ MD 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 02/17/2013 BRANDON CAMPBELL DDS 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 02/17/2013 ANTHONY HAQ MD 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 02/17/2013 ANTHONY HAQ MD 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 02/17/2013 ANTHONY HAQ MD 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 02/17/2013 ANTHONY HAQ MD 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 02/17/2013 ANTHONY HAQ MD 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 02/17/2013 ANTHONY HAQ MD 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 02/17/2013 ANTHONY HAQ MD 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 09/01/2013 ANTHONY HAQ MD 380.10 INFECTIVE OTITIS EXTERNA UNSPECIFIED 09/01/2013 ANTHONY HAQ MD 382.9 UNSPECIFIED OTITIS MEDIA 09/01/2013 EUN SHARP, ANTHONY 380.10 INFECTIVE OTITIS EXTERNA UNSPECIFIED 09/01/2013 EUN SHARP, ANTHONY 382.9 UNSPECIFIED OTITIS MEDIA 09/01/2013 EUN SHARP, ANTHONY 380.10 INFECTIVE OTITIS EXTERNA UNSPECIFIED 09/01/2013 EUN SHARP, ANTHONY 382.9 UNSPECIFIED OTITIS MEDIA 09/01/2013 EUN SHARP, ANTHONY 380.10 INFECTIVE OTITIS EXTERNA UNSPECIFIED 09/01/2013 EUN SHARP, ANTHONY 382.9 UNSPECIFIED OTITIS MEDIA 09/01/2013 EUN SHARP, ANTHONY 380.10 INFECTIVE OTITIS EXTERNA UNSPECIFIED 09/01/2013 EUN SHARP, ANTHONY 382.9 UNSPECIFIED OTITIS MEDIA 09/01/2013 NAYAK DO, NEGRO K 380.10 INFECTIVE OTITIS EXTERNA UNSPECIFIED 09/01/2013 NAYAK DO, NEGRO K 382.9 UNSPECIFIED OTITIS MEDIA 09/01/2013 CABRERA VAREAL APRN 380.10 INFECTIVE OTITIS EXTERNA UNSPECIFIED 09/01/2013 CABRERA VARELA APRN 382.9 UNSPECIFIED OTITIS MEDIA 09/01/2013 NAYAK DO NEGRO K 380.10 INFECTIVE OTITIS EXTERNA UNSPECIFIED 09/01/2013 NAYAK DO, NEGRO K 382.9 UNSPECIFIED OTITIS MEDIA 09/01/2013 NAYAK DO, NEGRO K 380.10 INFECTIVE OTITIS EXTERNA UNSPECIFIED 09/01/2013 NAYAK DO NEGRO K 382.9 UNSPECIFIED OTITIS MEDIA 09/01/2013 EUN SHARP, ANTHONY 380.10 INFECTIVE OTITIS EXTERNA UNSPECIFIED 09/01/2013 ANTHONY HAQ MD 382.9 UNSPECIFIED OTITIS MEDIA 09/01/2013 EUN SHARP, ANTHONY 380.10 INFECTIVE OTITIS EXTERNA UNSPECIFIED 09/01/2013 EUN SHARP, ANTHONY 382.9 UNSPECIFIED OTITIS MEDIA 09/01/2013 EUN SHARP, ANTHONY 380.10 INFECTIVE OTITIS EXTERNA UNSPECIFIED 09/01/2013 ANTHONY HAQ MD 382.9 UNSPECIFIED OTITIS MEDIA 09/01/2013 ANTHONY HAQ MD 380.10 INFECTIVE OTITIS EXTERNA UNSPECIFIED 09/01/2013 EUN SHARP, ANTHONY 382.9 UNSPECIFIED OTITIS MEDIA 09/01/2013 EUN SHARP, ANTHONY 380.10 INFECTIVE OTITIS EXTERNA UNSPECIFIED 09/01/2013 EUN SHARP, ANTHONY 382.9 UNSPECIFIED OTITIS MEDIA 09/01/2013 WHITE DDS, BRANDON D 380.10 INFECTIVE OTITIS EXTERNA UNSPECIFIED 09/01/2013 WHITE DDS, BRANDON D 382.9 UNSPECIFIED OTITIS MEDIA 09/01/2013 EUN SHARP, ANTHONY 380.10 INFECTIVE OTITIS EXTERNA UNSPECIFIED 09/01/2013 EUN SHARP, ANTHONY 382.9 UNSPECIFIED OTITIS MEDIA 09/01/2013 EUN SHARP, ANTHONY 380.10 INFECTIVE OTITIS EXTERNA UNSPECIFIED 09/01/2013 EUN SHARP, ANTHONY 382.9 UNSPECIFIED OTITIS MEDIA 09/01/2013 EUN SHARP, ANTHONY 380.10 INFECTIVE OTITIS EXTERNA UNSPECIFIED 09/01/2013 EUN SHARP, ANTHONY 382.9 UNSPECIFIED OTITIS MEDIA 09/01/2013 EUN SHARP, ANTHONY 380.10 INFECTIVE OTITIS EXTERNA UNSPECIFIED 09/01/2013 EUN SHARP, ANTHONY 382.9 UNSPECIFIED OTITIS MEDIA 09/01/2013 EUN SHARP, ANTHONY 380.10 INFECTIVE OTITIS EXTERNA UNSPECIFIED 09/01/2013 EUN SHARP, ANTHONY 382.9 UNSPECIFIED OTITIS MEDIA 09/01/2013 EUN SHARP, ANTHONY 380.10 INFECTIVE OTITIS EXTERNA UNSPECIFIED 09/01/2013 EUN SHARP, ANTHONY 382.9 UNSPECIFIED OTITIS MEDIA 09/01/2013 EUN SHARP, ANTHONY 380.10 INFECTIVE OTITIS EXTERNA UNSPECIFIED 09/01/2013 EUN SHARP, ANTHONY 382.9 UNSPECIFIED OTITIS MEDIA 01/05/2014 NEGRO NAYAK DO 682.9 CELLULITIS AND ABSCESS OF UNSPECIFIED SITES 01/05/2014 CABRERA VARELA APRN 682.9 CELLULITIS AND ABSCESS OF UNSPECIFIED SITES 01/05/2014 NEGRO NAYAK DO 682.9 CELLULITIS AND ABSCESS OF UNSPECIFIED SITES 01/05/2014 NEGRO NAYAK DO 682.9 CELLULITIS AND ABSCESS OF UNSPECIFIED SITES 01/05/2014 ANTHONY HAQ MD2.9 CELLULITIS AND ABSCESS OF UNSPECIFIED SITES 01/05/2014 ANTHONY HAQ MD2.9 CELLULITIS AND ABSCESS OF UNSPECIFIED SITES 01/05/2014 ANTHONY HAQ MD2.9 CELLULITIS AND ABSCESS OF UNSPECIFIED SITES 01/05/2014 ANTHONY HAQ MD2.9 CELLULITIS AND ABSCESS OF UNSPECIFIED SITES 01/05/2014 ANTHONY HAQ MD2.9 CELLULITIS AND ABSCESS OF UNSPECIFIED SITES 01/05/2014 WHITE DDS, BRANDON Wood 682.9 CELLULITIS AND ABSCESS OF UNSPECIFIED SITES 01/05/2014 ANTHONY HAQ MD 682.9 CELLULITIS AND ABSCESS OF UNSPECIFIED SITES 01/05/2014 ANTHONY HAQ MD 682.9 CELLULITIS AND ABSCESS OF UNSPECIFIED SITES 01/05/2014 ANTHONY HAQ MD 682.9 CELLULITIS AND ABSCESS OF UNSPECIFIED SITES 01/05/2014 ANTHONY HAQ MD2.9 CELLULITIS AND ABSCESS OF UNSPECIFIED SITES 01/05/2014 ANTHONY HAQ MD2.9 CELLULITIS AND ABSCESS OF UNSPECIFIED SITES 01/05/2014 ANTHONY HAQ MD2.9 CELLULITIS AND ABSCESS OF UNSPECIFIED SITES 01/05/2014 ANTHONY HAQ MD2.9 CELLULITIS AND ABSCESS OF UNSPECIFIED SITES 06/22/2014 BAIMA, SHANE L GLUING MACHINE OPERATOR Ot 414.00 06/22/2014 BAIMA, SHANE L GLUING MACHINE OPERATOR Ot 414.8 06/22/2014 BAIMA, SHANE L GLUING MACHINE OPERATOR Ot 428.22 10/20/2014 ANTHONY HAQ MD 790.6 OTHER ABNORMAL BLOOD CHEMISTRY 10/26/2014 BAIMA, SHANE L GLUING MACHINE OPERATOR Ot 272.4 10/26/2014 BAIMA, SHANE L GLUING MACHINE OPERATOR Ot 414.00 01/26/2015 BAIMA, SHANE L GLUING MACHINE OPERATOR Ot 272.4 01/26/2015 BAIMA, SHANE L GLUING MACHINE OPERATOR Ot 414.00 01/26/2015 BAIMA, SHANE L GLUING MACHINE OPERATOR Ot 414.00 01/26/2015 BAIMA, SHANE L GLUING MACHINE OPERATOR Ot 414.8 01/26/2015 BAIMA, SHANE L GLUING MACHINE OPERATOR Ot 428.22 01/26/2015 BAIMA, SHANE L GLUING MACHINE OPERATOR Ot 272.4 01/26/2015 BAIMA, SHANE L GLUING MACHINE OPERATOR Ot 414.00 01/26/2015 BAIMA, SHANE L GLUING MACHINE OPERATOR Ot 272.4 01/26/2015 BAIMA, SHANE L GLUING MACHINE OPERATOR Ot 414.00 01/26/2015 BAIMA, SHANE L GLUING MACHINE OPERATOR Ot 414.00 01/26/2015 BAIMA, SHANE L GLUING MACHINE OPERATOR Ot 414.8 01/26/2015 BAIMA, SHANE L GLUING MACHINE OPERATOR Ot 428.22 01/26/2015 BAIMA, SHANE L GLUING MACHINE OPERATOR Ot 272.4 01/26/2015 BAIMA, SHANE L GLUING MACHINE OPERATOR Ot 414.00 04/14/2015 BAIMA, SHANE L GLUING MACHINE OPERATOR Ot E78.5 04/14/2015 BAIMA, SHANE L GLUING MACHINE OPERATOR Ot I25.10 12/06/2015 BAIMA, SHANE L GLUING MACHINE OPERATOR Ot 272.4 HYPERLIPIDEMIA NEC/NOS 12/06/2015 BAIMA, SHANE L GLUING MACHINE OPERATOR Ot 414.00 CORON ATHEROSCLER NOS TYPE VESSEL, NATIV 12/06/2015 BAIMA, SHANE L GLUING MACHINE OPERATOR Ot 414.00 CORON ATHEROSCLER NOS TYPE VESSEL, NATIV 12/06/2015 BAIMA, SHANE L GLUING MACHINE OPERATOR Ot 414.8 CHR ISCHEMIC HRT DIS NEC 12/06/2015 BAIMA, SHANE L GLUING MACHINE OPERATOR Ot 428.22 CHRONIC SYSTOLIC HRT FAILURE 12/06/2015 BAIMA, SHANE L GLUING MACHINE OPERATOR Ot 272.4 HYPERLIPIDEMIA NEC/NOS 12/06/2015 BAIMA, SHANE L GLUING MACHINE OPERATOR Ot 414.00 CORON ATHEROSCLER NOS TYPE VESSEL, NATIV 12/06/2015 BAIMA, SHANE L GLUING MACHINE OPERATOR Ot E78.5 HYPERLIPIDEMIA, UNSPECIFIED 12/06/2015 BAIMA, SHANE L GLUING MACHINE OPERATOR Ot I25.10 ATHSCL HEART DISEASE OF [place] CORONARY 12/07/2015 BAIMA, SHANE L GLUING MACHINE OPERATOR Ot E78.4 OTHER HYPERLIPIDEMIA 12/07/2015 BAIMA, SHANE L GLUING MACHINE OPERATOR Ot I10 ESSENTIAL (PRIMARY) HYPERTENSION 12/07/2015 BAIMA, SHANE L GLUING MACHINE OPERATOR Ot I25.10 ATHSCL HEART DISEASE OF [place] CORONARY 12/07/2015 BAIMA, SHANE L GLUING MACHINE OPERATOR Ot I65.23 OCCLUSION AND STENOSIS OF BILATERAL CHE 12/07/2015 BAIMA, SHANE L GLUING MACHINE OPERATOR Ot R06.00 DYSPNEA, UNSPECIFIED 12/07/2015 BAIMA, SHANE L GLUING MACHINE OPERATOR Ot R07.9 CHEST PAIN, UNSPECIFIED 12/07/2015 BAIMA, SHANE L GLUING MACHINE OPERATOR Ot Z72.0 TOBACCO USE 12/08/2015 BAIMA, SHANE L GLUING MACHINE OPERATOR Ot E78.4 OTHER HYPERLIPIDEMIA 12/08/2015 BAIMA, SHANE L GLUING MACHINE OPERATOR Ot I10 ESSENTIAL (PRIMARY) HYPERTENSION 12/08/2015 BAIMA, SHANE L GLUING MACHINE OPERATOR Ot I25.10 ATHSCL HEART DISEASE OF [place] CORONARY 12/08/2015 BAIMA, SHANE L GLUING MACHINE OPERATOR Ot I65.23 OCCLUSION AND STENOSIS OF BILATERAL CHE 12/08/2015 BAIMA, SHANE L GLUING MACHINE OPERATOR Ot R06.00 DYSPNEA, UNSPECIFIED 12/08/2015 BAIMA, SHANE L GLUING MACHINE OPERATOR Ot R07.9 CHEST PAIN, UNSPECIFIED 12/08/2015 BAIMA, SHANE L GLUING MACHINE OPERATOR Ot Z72.0 TOBACCO USE 12/08/2015 BAIMA, SHANE L GLUING MACHINE OPERATOR Ot E78.4 OTHER HYPERLIPIDEMIA 12/08/2015 BAIMA, SHANE L GLUING MACHINE OPERATOR Ot I10 ESSENTIAL (PRIMARY) HYPERTENSION 12/08/2015 BAIMA, SHANE L GLUING MACHINE OPERATOR Ot I25.10 ATHSCL HEART DISEASE OF [place] CORONARY 12/08/2015 BAIMA, SHANE L GLUING MACHINE OPERATOR Ot I65.23 OCCLUSION AND STENOSIS OF BILATERAL CHE 12/08/2015 BAIMA, SHANE L GLUING MACHINE OPERATOR Ot R06.00 DYSPNEA, UNSPECIFIED 12/08/2015 BAIMA, SHANE L GLUING MACHINE OPERATOR Ot R07.9 CHEST PAIN, UNSPECIFIED 12/08/2015 BAIMA, SHANE L GLUING MACHINE OPERATOR Ot Z72.0 TOBACCO USE 12/24/2015 BAIMA, SHANE L GLUING MACHINE OPERATOR Ot E78.4 OTHER HYPERLIPIDEMIA 12/24/2015 BAIMA, SHANE L GLUING MACHINE OPERATOR Ot I10 ESSENTIAL (PRIMARY) HYPERTENSION 12/24/2015 BAIMA, SHANE L GLUING MACHINE OPERATOR Ot I25.10 ATHSCL HEART DISEASE OF [place] CORONARY 12/24/2015 BAIMA, SHANE L GLUING MACHINE OPERATOR Ot I65.23 OCCLUSION AND STENOSIS OF BILATERAL CHE 12/24/2015 BAIMA, SHANE L GLUING MACHINE OPERATOR Ot R06.00 DYSPNEA, UNSPECIFIED 12/24/2015 BAIMA, SHANE L GLUING MACHINE OPERATOR Ot R07.9 CHEST PAIN, UNSPECIFIED 12/24/2015 BAIMA, SHANE L GLUING MACHINE OPERATOR Ot Z72.0 TOBACCO USE 12/24/2015 BAIMA, SHANE L GLUING MACHINE OPERATOR Ot E78.4 OTHER HYPERLIPIDEMIA 12/24/2015 BAIMA, SHANE L GLUING MACHINE OPERATOR Ot I10 ESSENTIAL (PRIMARY) HYPERTENSION 12/24/2015 BAIMA, SHANE L GLUING MACHINE OPERATOR Ot I25.10 ATHSCL HEART DISEASE OF [place] CORONARY 12/24/2015 BAIMA, SHANE L GLUING MACHINE OPERATOR Ot I65.23 OCCLUSION AND STENOSIS OF BILATERAL CHE 12/24/2015 BAIMA, SHANE L GLUING MACHINE OPERATOR Ot R06.00 DYSPNEA, UNSPECIFIED 12/24/2015 BAISHANE LAWSON GLUING MACHINE OPERATOR Ot R07.9 CHEST PAIN, UNSPECIFIED 12/24/2015 SHANE LEOS GLUING MACHINE OPERATOR Ot Z72.0 TOBACCO USE 12/29/2015 SHANE LEOS GLUING MACHINE OPERATOR Ot E78.4 OTHER HYPERLIPIDEMIA 12/29/2015 SHANE LEOS GLUING MACHINE OPERATOR Ot I10 ESSENTIAL (PRIMARY) HYPERTENSION 12/29/2015 SHANE LEOS L GLUING MACHINE OPERATOR Ot I25.10 ATHSCL HEART DISEASE OF [place] CORONARY 12/29/2015 SHANE LEOS GLUING MACHINE OPERATOR Ot I65.23 OCCLUSION AND STENOSIS OF BILATERAL CHE 12/29/2015 SHANE LEOS GLUING MACHINE OPERATOR Ot R06.00 DYSPNEA, UNSPECIFIED 12/29/2015 SHANE LEOS GLUING MACHINE OPERATOR Ot R07.9 CHEST PAIN, UNSPECIFIED 12/29/2015 SHANE LEOS GLUING MACHINE OPERATOR Ot Z72.0 TOBACCO USE 01/14/2016 HEATHER HERNANDEZ DO Ot E66.9 OBESITY, UNSPECIFIED 01/14/2016 HEATHER HERNANDEZ DO Ot G47.30 SLEEP APNEA, UNSPECIFIED 01/14/2016 HEATHER HERNANDEZ DO Ot G47.33 OBSTRUCTIVE SLEEP APNEA (ADULT) (PEDIATR 01/14/2016 HEATHER HERNANDEZ DO Ot I25.10 ATHSCL HEART DISEASE OF [place] CORONARY 01/14/2016 HEATHER HERNANDEZ DO Ot 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[place] 01/14/2016 HEATHER HERNANDEZ DO Ot R06.83 SNORING 01/14/2016 HEATHER HERNANDEZ DO Ot Z72.0 TOBACCO USE 01/18/2016 DERICSHANE L GLUING MACHINE OPERATOR Ot I25.5 ISCHEMIC CARDIOMYOPATHY 01/18/2016 DERIC SHANE L GLUING MACHINE OPERATOR Ot I25.5 ISCHEMIC CARDIOMYOPATHY 01/18/2016 HEATHER HERNANDEZ DO Ot E66.9 OBESITY, UNSPECIFIED 01/18/2016 HEATHER HERNANDEZ DO Ot G47.33 OBSTRUCTIVE SLEEP APNEA (ADULT) (PEDIATR 01/18/2016 HEATHER HERNANDEZ DO Ot I25.10 ATHSCL HEART DISEASE OF [place] CORONARY 01/18/2016 HEATHER HERNANDEZ DO Ot 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[place] 01/18/2016 MARY HEATHER IRIZARRY Ot R06.83 SNORING 01/18/2016 MARYHEATHER SHAH DO Ot Z72.0 TOBACCO USE 02/02/2016 BAIMA, SHANE L GLUING MACHINE OPERATOR Ot I25.5 ISCHEMIC CARDIOMYOPATHY 02/15/2016 BAIMA, SHANE L GLUING MACHINE OPERATOR Ot 272.4 HYPERLIPIDEMIA NEC/NOS 02/15/2016 BAIMA, SHANE L GLUING MACHINE OPERATOR Ot 414.00 CORON ATHEROSCLER NOS TYPE VESSEL, NATIV 02/15/2016 BAIMA, SHANE L GLUING MACHINE OPERATOR Ot 414.00 CORON ATHEROSCLER NOS TYPE VESSEL, NATIV 02/15/2016 BAIMA, SHANE L GLUING MACHINE OPERATOR Ot 414.8 CHR ISCHEMIC HRT DIS NEC 02/15/2016 BAIMA, SHANE L GLUING MACHINE OPERATOR Ot 428.22 CHRONIC SYSTOLIC HRT FAILURE 02/15/2016 BAIMA, SHANE L GLUING MACHINE OPERATOR Ot 272.4 HYPERLIPIDEMIA NEC/NOS 02/15/2016 BAIMA, SHANE L GLUING MACHINE OPERATOR Ot 414.00 CORON ATHEROSCLER NOS TYPE VESSEL, NATIV 02/15/2016 BAIMA, SHANE L GLUING MACHINE OPERATOR Ot E78.5 HYPERLIPIDEMIA, UNSPECIFIED 02/15/2016 BAIMA, SHANE L GLUING MACHINE OPERATOR Ot I25.10 ATHSCL HEART DISEASE OF [place] CORONARY 02/15/2016 BAIMA, SHANE L GLUING MACHINE OPERATOR Ot E78.4 OTHER HYPERLIPIDEMIA 02/15/2016 BAIMA, SHANE L GLUING MACHINE OPERATOR Ot I10 ESSENTIAL (PRIMARY) HYPERTENSION 02/15/2016 BAIMA, SHANE L GLUING MACHINE OPERATOR Ot I25.10 ATHSCL HEART DISEASE OF [place] CORONARY 02/15/2016 BAIMA, SHANE L GLUING MACHINE OPERATOR Ot I65.23 OCCLUSION AND STENOSIS OF BILATERAL CHE 02/15/2016 BAIMA, SHANE L GLUING MACHINE OPERATOR Ot R06.00 DYSPNEA, UNSPECIFIED 02/15/2016 BAIMA, SHANE L GLUING MACHINE OPERATOR Ot R07.9 CHEST PAIN, UNSPECIFIED 02/15/2016 BAIMA, SHANE L GLUING MACHINE OPERATOR Ot Z72.0 TOBACCO USE 02/15/2016 BAIMA, SHANE L GLUING MACHINE OPERATOR Ot E78.4 OTHER HYPERLIPIDEMIA 02/15/2016 BAIMA, SHANE L GLUING MACHINE OPERATOR Ot I10 ESSENTIAL (PRIMARY) HYPERTENSION 02/15/2016 BAIMA, SHANE L GLUING MACHINE OPERATOR Ot I25.10 ATHSCL HEART DISEASE OF [place] CORONARY 02/15/2016 BAIMA, SHANE L GLUING MACHINE OPERATOR Ot I65.23 OCCLUSION AND STENOSIS OF BILATERAL CHE 02/15/2016 NANCYSHANE LAWSON L GLUING MACHINE OPERATOR Ot R06.00 DYSPNEA, UNSPECIFIED 02/15/2016 BAIJEREMIAS LAWSONHER L GLUING MACHINE OPERATOR Ot R07.9 CHEST PAIN, UNSPECIFIED 02/15/2016 BAIJEREMIAS LAWSONHER L GLUING MACHINE OPERATOR Ot Z72.0 TOBACCO USE 02/15/2016 DERICJEREMIASSHANE L GLUING MACHINE OPERATOR Ot I25.5 ISCHEMIC CARDIOMYOPATHY 03/10/2016 HEATHER HERNANDEZ DO Ot E66.9 OBESITY, UNSPECIFIED 03/10/2016 HEATHER HERNANDEZ DO Ot G47.30 SLEEP APNEA, UNSPECIFIED 03/10/2016 HEATHER HERNANDEZ DO Ot I25.10 ATHSCL HEART DISEASE OF [place] CORONARY 03/10/2016 HEATHER HERNNADEZ DO Ot 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[place] 03/10/2016 HEATHER HERNANDEZ DO Ot Z72.0 TOBACCO USE 09/13/2016 DERIC SHANE L GLUING MACHINE OPERATOR Ot I25.10 ATHSCL HEART DISEASE OF [place] CORONARY 09/13/2016 BAIJEREMIAS LAWSONHER L GLUING MACHINE OPERATOR Ot I65.23 OCCLUSION AND STENOSIS OF BILATERAL CHE 09/18/2016 BAIJEREMIAS LAWSONHER L GLUING MACHINE OPERATOR Ot E78.4 OTHER HYPERLIPIDEMIA 09/18/2016 BAIMA, SHANE L GLUING MACHINE OPERATOR Ot I11.0 HYPERTENSIVE HEART DISEASE WITH HEART FA 09/18/2016 BAIMA SHANE L GLUING MACHINE OPERATOR Ot I25.10 ATHSCL HEART DISEASE OF [place] CORONARY 09/18/2016 BAIMA SHANE L GLUING MACHINE OPERATOR Ot I50.22 CHRONIC SYSTOLIC (CONGESTIVE) HEART FAIL 09/18/2016 BAIMAJEREMIASSHANE L GLUING MACHINE OPERATOR Ot I65.23 OCCLUSION AND STENOSIS OF BILATERAL CHE 09/18/2016 BAIMA SHANE L GLUING MACHINE OPERATOR Ot Z72.0 TOBACCO USE 09/27/2016 BAIMA, SHANE L GLUING MACHINE OPERATOR Ot E78.4 OTHER HYPERLIPIDEMIA 09/27/2016 BAIMA, SHANE L GLUING MACHINE OPERATOR Ot I11.0 HYPERTENSIVE HEART DISEASE WITH HEART FA 09/27/2016 BAIMA SHANE L GLUING MACHINE OPERATOR Ot I25.10 ATHSCL HEART DISEASE OF [place] CORONARY 09/27/2016 BAIMA SHANE L GLUING MACHINE OPERATOR Ot I50.22 CHRONIC SYSTOLIC (CONGESTIVE) HEART FAIL 09/27/2016 BAIMA, SHANE L GLUING MACHINE OPERATOR Ot I65.23 OCCLUSION AND STENOSIS OF BILATERAL CHE 09/27/2016 BAILULU SHANE L GLUING MACHINE OPERATOR Ot Z72.0 TOBACCO USE 03/10/2017 BAILULU SHANE L GLUING MACHINE OPERATOR Ot E78.4 OTHER HYPERLIPIDEMIA 03/10/2017 BAIMA, SHANE L GLUING MACHINE OPERATOR Ot I11.0 HYPERTENSIVE HEART DISEASE WITH HEART FA 03/10/2017 BAIMA SHANE L GLUING MACHINE OPERATOR Ot I25.10 ATHSCL HEART DISEASE OF [place] CORONARY 03/10/2017 BAIMA SHANE L GLUING MACHINE OPERATOR Ot I50.22 CHRONIC SYSTOLIC (CONGESTIVE) HEART FAIL 03/10/2017 BAILULU SHANE L GLUING MACHINE OPERATOR Ot I65.23 OCCLUSION AND STENOSIS OF BILATERAL CHE 03/10/2017 BAILULU SHANE L GLUING MACHINE OPERATOR Ot Z72.0 TOBACCO USE 03/28/2017 BAIMA SHANE L GLUING MACHINE OPERATOR Ot I25.10 ATHSCL HEART DISEASE OF [place] CORONARY 04/26/2017 BAIMA SHANE L GLUING MACHINE OPERATOR Ot I11.0 HYPERTENSIVE HEART DISEASE WITH HEART FA 04/26/2017 BAIMA SHANE L GLUING MACHINE OPERATOR Ot I25.10 ATHSCL HEART DISEASE OF [place] CORONARY 04/26/2017 BAIMA, SHANE L GLUING MACHINE OPERATOR Ot I25.5 ISCHEMIC CARDIOMYOPATHY 04/26/2017 BAIMA, SHANE L GLUING MACHINE OPERATOR Ot I50.22 CHRONIC SYSTOLIC (CONGESTIVE) HEART FAIL 05/02/2017 BAIMA, SHANE L GLUING MACHINE OPERATOR Ot I11.0 HYPERTENSIVE HEART DISEASE WITH HEART FA 05/02/2017 BAIMA, SHANE L GLUING MACHINE OPERATOR Ot I25.10 ATHSCL HEART DISEASE OF [place] CORONARY 05/02/2017 BAIMA SHANE L GLUING MACHINE OPERATOR Ot I25.5 ISCHEMIC CARDIOMYOPATHY 05/02/2017 BAIMA, SHANE L GLUING MACHINE OPERATOR Ot I50.22 CHRONIC SYSTOLIC (CONGESTIVE) HEART FAIL 08/31/2017 BAILULU SHANE L GLUING MACHINE OPERATOR Ot 272.4 HYPERLIPIDEMIA NEC/NOS 08/31/2017 BAIMA, SHANE L GLUING MACHINE OPERATOR Ot 414.00 CORON ATHEROSCLER NOS TYPE VESSEL, NATIV 08/31/2017 BAIMA, SHANE L GLUING MACHINE OPERATOR Ot 414.00 CORON ATHEROSCLER NOS TYPE VESSEL, NATIV 08/31/2017 BAIMA SHANE L GLUING MACHINE OPERATOR Ot 414.8 CHR ISCHEMIC HRT DIS NEC 08/31/2017 BAIMA, SHANE L GLUING MACHINE OPERATOR Ot 428.22 CHRONIC SYSTOLIC HRT FAILURE 08/31/2017 BAIMA, SHANE L GLUING MACHINE OPERATOR Ot 272.4 HYPERLIPIDEMIA NEC/NOS 08/31/2017 BAIMA, SHANE L GLUING MACHINE OPERATOR Ot 414.00 CORON ATHEROSCLER NOS TYPE VESSEL, NATIV 08/31/2017 BAIMA, SHANE L GLUING MACHINE OPERATOR Ot E78.5 HYPERLIPIDEMIA, UNSPECIFIED 08/31/2017 BAIMA, SHANE L GLUING MACHINE OPERATOR Ot I25.10 ATHSCL HEART DISEASE OF [place] CORONARY 08/31/2017 BAIMA, SHANE L GLUING MACHINE OPERATOR Ot E78.4 OTHER HYPERLIPIDEMIA 08/31/2017 BAIMA, SHANE L GLUING MACHINE OPERATOR Ot I10 ESSENTIAL (PRIMARY) HYPERTENSION 08/31/2017 BAIMA, SHANE L GLUING MACHINE OPERATOR Ot I25.10 ATHSCL HEART DISEASE OF [place] CORONARY 08/31/2017 BAIMA, SHANE L GLUING MACHINE OPERATOR Ot I65.23 OCCLUSION AND STENOSIS OF BILATERAL CHE 08/31/2017 BAIMA, SHANE L GLUING MACHINE OPERATOR Ot R06.00 DYSPNEA, UNSPECIFIED 08/31/2017 BAIMA, SHANE L GLUING MACHINE OPERATOR Ot R07.9 CHEST PAIN, UNSPECIFIED 08/31/2017 BAIMA, SHANE L GLUING MACHINE OPERATOR Ot Z72.0 TOBACCO USE 08/31/2017 BAIMA, SHANE L GLUING MACHINE OPERATOR Ot E78.4 OTHER HYPERLIPIDEMIA 08/31/2017 BAIMA, SHANE L GLUING MACHINE OPERATOR Ot I10 ESSENTIAL (PRIMARY) HYPERTENSION 08/31/2017 BAIMA, SHANE L GLUING MACHINE OPERATOR Ot I25.10 ATHSCL HEART DISEASE OF [place] CORONARY 08/31/2017 BAIMA, SHANE L GLUING MACHINE OPERATOR Ot I65.23 OCCLUSION AND STENOSIS OF BILATERAL CHE 08/31/2017 BAIMA, SHANE L GLUING MACHINE OPERATOR Ot R06.00 DYSPNEA, UNSPECIFIED 08/31/2017 BAIMA, SHANE L GLUING MACHINE OPERATOR Ot R07.9 CHEST PAIN, UNSPECIFIED 08/31/2017 BAIMA, SHANE L GLUING MACHINE OPERATOR Ot Z72.0 TOBACCO USE 08/31/2017 BAIMA, SHANE L GLUING MACHINE OPERATOR Ot I25.5 ISCHEMIC CARDIOMYOPATHY 08/31/2017 BAIMA, SHANE L GLUING MACHINE OPERATOR Ot I25.10 ATHSCL HEART DISEASE OF [place] CORONARY 08/31/2017 BAIMA, SHANE L GLUING MACHINE OPERATOR Ot I65.23 OCCLUSION AND STENOSIS OF BILATER[place] CHE 08/31/2017 BAIMA, SHANE L GLUING MACHINE OPERATOR Ot E78.4 OTHER HYPERLIPIDEMIA 08/31/2017 BAIMA, SHANE L GLUING MACHINE OPERATOR Ot I11.0 HYPERTENSIVE HEART DISEASE WITH HEART FA 08/31/2017 BAIMA, SHANE L GLUING MACHINE OPERATOR Ot I25.10 ATHSCL HEART DISEASE OF [place] CORONARY 08/31/2017 BAIMA, SHANE L GLUING MACHINE OPERATOR Ot I50.22 CHRONIC SYSTOLIC (CONGESTIVE) HEART FAIL 08/31/2017 BAIMA, SHANE L GLUING MACHINE OPERATOR Ot I65.23 OCCLUSION AND STENOSIS OF BILATERAL CHE 08/31/2017 BAIMA, SHANE L GLUING MACHINE OPERATOR Ot Z72.0 TOBACCO USE 08/31/2017 BAIMA, SHANE L GLUING MACHINE OPERATOR Ot I25.10 ATHSCL HEART DISEASE OF [place] CORONARY 08/31/2017 BAIMA, SHANE L GLUING MACHINE OPERATOR Ot I11.0 HYPERTENSIVE HEART DISEASE WITH HEART FA 08/31/2017 BAIMA, SHANE L GLUING MACHINE OPERATOR Ot I25.10 ATHSCL HEART DISEASE OF [place] CORONARY 08/31/2017 BAIMA, SHANE L GLUING MACHINE OPERATOR Ot I25.5 ISCHEMIC CARDIOMYOPATHY 08/31/2017 BAIMA, SHANE L GLUING MACHINE OPERATOR Ot I50.22 CHRONIC SYSTOLIC (CONGESTIVE) HEART FAIL 08/31/2017 BAIMA, SHANE L GLUING MACHINE OPERATOR Ot 272.4 HYPERLIPIDEMIA NEC/NOS 08/31/2017 BAIMA, SHANE L GLUING MACHINE OPERATOR Ot 414.00 CORON ATHEROSCLER NOS TYPE VESSEL, NATIV 08/31/2017 BAIMA, SHANE L GLUING MACHINE OPERATOR Ot 414.00 CORON ATHEROSCLER NOS TYPE VESSEL, NATIV 08/31/2017 BAIMA, SHANE L GLUING MACHINE OPERATOR Ot 414.8 CHR ISCHEMIC HRT DIS NEC 08/31/2017 BAIMA, SHANE L GLUING MACHINE OPERATOR Ot 428.22 CHRONIC SYSTOLIC HRT FAILURE 08/31/2017 BAIMA, SHANE L GLUING MACHINE OPERATOR Ot 272.4 HYPERLIPIDEMIA NEC/NOS 08/31/2017 BAIMA, SHANE L GLUING MACHINE OPERATOR Ot 414.00 CORON ATHEROSCLER NOS TYPE VESSEL, NATIV 08/31/2017 BAIMA, SHANE L GLUING MACHINE OPERATOR Ot E78.5 HYPERLIPIDEMIA, UNSPECIFIED 08/31/2017 BAIMA, SHANE L GLUING MACHINE OPERATOR Ot I25.10 ATHSCL HEART DISEASE OF [place] CORONARY 08/31/2017 BAIMA, SHANE L GLUING MACHINE OPERATOR Ot E78.4 OTHER HYPERLIPIDEMIA 08/31/2017 BAIMA, SHANE L GLUING MACHINE OPERATOR Ot I10 ESSENTIAL (PRIMARY) HYPERTENSION 08/31/2017 BAIMA, SHANE L GLUING MACHINE OPERATOR Ot I25.10 ATHSCL HEART DISEASE OF [place] CORONARY 08/31/2017 BAIMA, SHANE L GLUING MACHINE OPERATOR Ot I65.23 OCCLUSION AND STENOSIS OF BILATERAL CHE 08/31/2017 BAIMA, SHANE L GLUING MACHINE OPERATOR Ot R06.00 DYSPNEA, UNSPECIFIED 08/31/2017 BAIMA, SHANE L GLUING MACHINE OPERATOR Ot R07.9 CHEST PAIN, UNSPECIFIED 08/31/2017 BAIMA, SHANE L GLUING MACHINE OPERATOR Ot Z72.0 TOBACCO USE 08/31/2017 BAIMA, SHANE L GLUING MACHINE OPERATOR Ot E78.4 OTHER HYPERLIPIDEMIA 08/31/2017 BAIMA, SHANE L GLUING MACHINE OPERATOR Ot I10 ESSENTIAL (PRIMARY) HYPERTENSION 08/31/2017 BAIMA, SHANE L GLUING MACHINE OPERATOR Ot I25.10 ATHSCL HEART DISEASE OF [place] CORONARY 08/31/2017 BAIMA, SHANE L GLUING MACHINE OPERATOR Ot I65.23 OCCLUSION AND STENOSIS OF BILATERAL CHE 08/31/2017 BAIMA, SHANE L GLUING MACHINE OPERATOR Ot R06.00 DYSPNEA, UNSPECIFIED 08/31/2017 BAIMA, SHANE L GLUING MACHINE OPERATOR Ot R07.9 CHEST PAIN, UNSPECIFIED 08/31/2017 BAIMA, SHANE L GLUING MACHINE OPERATOR Ot Z72.0 TOBACCO USE 08/31/2017 BAIMA, SHANE L GLUING MACHINE OPERATOR Ot I25.5 ISCHEMIC CARDIOMYOPATHY 08/31/2017 BAIMA, SHANE L GLUING MACHINE OPERATOR Ot I25.10 ATHSCL HEART DISEASE OF [place] CORONARY 08/31/2017 BAIMA, SHANE L GLUING MACHINE OPERATOR Ot I65.23 OCCLUSION AND STENOSIS OF BILATERAL CHE 08/31/2017 BAIMA, SHANE L GLUING MACHINE OPERATOR Ot E78.4 OTHER HYPERLIPIDEMIA 08/31/2017 BAIMA, SHANE L GLUING MACHINE OPERATOR Ot I11.0 HYPERTENSIVE HEART DISEASE WITH HEART FA 08/31/2017 BAIMA, SHANE L GLUING MACHINE OPERATOR Ot I25.10 ATHSCL HEART DISEASE OF [place] CORONARY 08/31/2017 BAIMA, SHANE L GLUING MACHINE OPERATOR Ot I50.22 CHRONIC SYSTOLIC (CONGESTIVE) HEART FAIL 08/31/2017 BAIMA, SHANE L GLUING MACHINE OPERATOR Ot I65.23 OCCLUSION AND STENOSIS OF BILATERAL CHE 08/31/2017 BAIMA, SHANE L GLUING MACHINE OPERATOR Ot Z72.0 TOBACCO USE 08/31/2017 BAIMA, SHANE L GLUING MACHINE OPERATOR Ot I25.10 ATHSCL HEART DISEASE OF [place] CORONARY 08/31/2017 BAIMA, SHANE L GLUING MACHINE OPERATOR Ot I11.0 HYPERTENSIVE HEART DISEASE WITH HEART FA 08/31/2017 BAIMA, SHANE L GLUING MACHINE OPERATOR Ot I25.10 ATHSCL HEART DISEASE OF [place] CORONARY 08/31/2017 BAIMA, SHANE L GLUING MACHINE OPERATOR Ot I25.5 ISCHEMIC CARDIOMYOPATHY 08/31/2017 BAIMA, SHANE L GLUING MACHINE OPERATOR Ot I50.22 CHRONIC SYSTOLIC (CONGESTIVE) HEART FAIL 09/06/2017 BAIMA, SHANE L GLUING MACHINE OPERATOR Ot 272.4 HYPERLIPIDEMIA NEC/NOS 09/06/2017 BAIMA, SHANE L GLUING MACHINE OPERATOR Ot 414.00 CORON ATHEROSCLER NOS TYPE VESSEL, NATIV 09/06/2017 BAIMA, SHANE L GLUING MACHINE OPERATOR Ot 414.00 CORON ATHEROSCLER NOS TYPE VESSEL, NATIV 09/06/2017 BAIMA, SHANE L GLUING MACHINE OPERATOR Ot 414.8 CHR ISCHEMIC HRT DIS NEC 09/06/2017 BAIMA, SHANE L GLUING MACHINE OPERATOR Ot 428.22 CHRONIC SYSTOLIC HRT FAILURE 09/06/2017 BAIMA, SHANE L GLUING MACHINE OPERATOR Ot 272.4 HYPERLIPIDEMIA NEC/NOS 09/06/2017 BAIMA, SHANE L GLUING MACHINE OPERATOR Ot 414.00 CORON ATHEROSCLER NOS TYPE VESSEL, NATIV 09/06/2017 BAIMA, SHANE L GLUING MACHINE OPERATOR Ot E78.5 HYPERLIPIDEMIA, UNSPECIFIED 09/06/2017 BAIMA, SHANE L GLUING MACHINE OPERATOR Ot I25.10 ATHSCL HEART DISEASE OF [place] CORONARY 09/06/2017 BAIMA, SHANE L GLUING MACHINE OPERATOR Ot E78.4 OTHER HYPERLIPIDEMIA 09/06/2017 BAIMA, SHANE L GLUING MACHINE OPERATOR Ot I10 ESSENTIAL (PRIMARY) HYPERTENSION 09/06/2017 BAIMA, SHANE L GLUING MACHINE OPERATOR Ot I25.10 ATHSCL HEART DISEASE OF [place] CORONARY 09/06/2017 BAIMA, SHANE L GLUING MACHINE OPERATOR Ot I65.23 OCCLUSION AND STENOSIS OF BILATERAL CHE 09/06/2017 BAIMA, SHANE L GLUING MACHINE OPERATOR Ot R06.00 DYSPNEA, UNSPECIFIED 09/06/2017 BAIMA, SHANE L GLUING MACHINE OPERATOR Ot R07.9 CHEST PAIN, UNSPECIFIED 09/06/2017 BAIMA, SHANE L GLUING MACHINE OPERATOR Ot Z72.0 TOBACCO USE 09/06/2017 BAIMA, SHANE L GLUING MACHINE OPERATOR Ot E78.4 OTHER HYPERLIPIDEMIA 09/06/2017 BAIMA, SHANE L GLUING MACHINE OPERATOR Ot I10 ESSENTIAL (PRIMARY) HYPERTENSION 09/06/2017 BAIMA, SHANE L GLUING MACHINE OPERATOR Ot I25.10 ATHSCL HEART DISEASE OF [place] CORONARY 09/06/2017 BAILULU SHANE L GLUING MACHINE OPERATOR Ot I65.23 OCCLUSION AND STENOSIS OF BILATERAL CHE 09/06/2017 BAIMA SHANE L GLUING MACHINE OPERATOR Ot R06.00 DYSPNEA, UNSPECIFIED 09/06/2017 BAILULU SHANE L GLUING MACHINE OPERATOR Ot R07.9 CHEST PAIN, UNSPECIFIED 09/06/2017 BAIMA, SHANE L GLUING MACHINE OPERATOR Ot Z72.0 TOBACCO USE 09/06/2017 BAIMA, SHANE L GLUING MACHINE OPERATOR Ot I25.5 ISCHEMIC CARDIOMYOPATHY 09/06/2017 BAIMA, SHANE L GLUING MACHINE OPERATOR Ot I25.10 ATHSCL HEART DISEASE OF [place] CORONARY 09/06/2017 BAIMA, SHANE L GLUING MACHINE OPERATOR Ot I65.23 OCCLUSION AND STENOSIS OF BILATERAL CHE 09/06/2017 BAILULU, SHANE L GLUING MACHINE OPERATOR Ot E78.4 OTHER HYPERLIPIDEMIA 09/06/2017 BAIMA, SHANE L GLUING MACHINE OPERATOR Ot I11.0 HYPERTENSIVE HEART DISEASE WITH HEART FA 09/06/2017 BAIMA, SHANE L GLUING MACHINE OPERATOR Ot I25.10 ATHSCL HEART DISEASE OF [place] CORONARY 09/06/2017 BAIMA, SHANE L GLUING MACHINE OPERATOR Ot I50.22 CHRONIC SYSTOLIC (CONGESTIVE) HEART FAIL 09/06/2017 BAIMA, SHANE L GLUING MACHINE OPERATOR Ot I65.23 OCCLUSION AND STENOSIS OF BILATERAL CHE 09/06/2017 BAIMA, SHANE L GLUING MACHINE OPERATOR Ot Z72.0 TOBACCO USE 09/06/2017 BAIMA, SHANE L GLUING MACHINE OPERATOR Ot I25.10 ATHSCL HEART DISEASE OF [place] CORONARY 09/06/2017 BAIMA, SHANE L GLUING MACHINE OPERATOR Ot I11.0 HYPERTENSIVE HEART DISEASE WITH HEART FA 09/06/2017 BAIMA, SHANE L GLUING MACHINE OPERATOR Ot I25.10 ATHSCL HEART DISEASE OF [place] CORONARY 09/06/2017 BAIMA, SHANE L GLUING MACHINE OPERATOR Ot I25.5 ISCHEMIC CARDIOMYOPATHY 09/06/2017 BAIMA, SHANE L GLUING MACHINE OPERATOR Ot I50.22 CHRONIC SYSTOLIC (CONGESTIVE) HEART FAIL Procedures Code Description [place] [address] ROUTINE VENIPUNCTURE 09/24/2012 60623 TSH 09/25/2012 88149 OXIMETRY 02/19/2013 Cardiolog Oren Fishman 02/19/2013 09739 INR (IN HOUSE) 03/04/2013 43911 INR (IN HOUSE) 04/01/2013 16325 INR (IN HOUSE) 05/05/2013 18945 INR (IN HOUSE) 05/19/2013 44414 INR (IN HOUSE) 06/02/2013 82969 INR (IN HOUSE) 06/24/2013 28575 INR (IN HOUSE) 07/08/2013 78116 INR (IN HOUSE) 07/22/2013 76108 INR (IN HOUSE) 08/04/2013 90161 INR (IN HOUSE) 08/19/2013 03471 INR (IN HOUSE) 09/01/2013 89996 INR (IN HOUSE) 09/15/2013 96213 INR (IN HOUSE) 10/16/2013 83091 INR (IN HOUSE) 11/17/2013 39472 INR (IN HOUSE) 12/17/2013 52679 I/D SIMPLE ABSCESS 01/05/2014 63924 CAPILLARY BLOOD DRAW 01/15/2014 36080 INR (IN HOUSE) 01/15/2014 92941 INR (IN HOUSE) 01/22/2014 78485 INR (IN HOUSE) 02/06/2014 75140 INR (IN HOUSE) 03/03/2014 15838 INR (IN HOUSE) 03/16/2014 01453 INR (IN HOUSE) 03/30/2014 25580 INR (IN HOUSE) 04/13/2014 67594 INR (IN HOUSE) 05/11/2014 46004 INR (IN HOUSE) 06/10/2014 09123 INR (IN HOUSE) 07/13/2014 82012 INR (IN HOUSE) 08/12/2014 33340 INR (IN HOUSE) 10/09/2014 Results There is no data. Encounters ACCT No. Visit Date/Time Discharge Status Pt. Type Provider Facility Loc./Unit Complaint [id number] 10/20/2014 15:55:00 10/20/2014 23:59:59 CLS Outpatient ANTHONY HAQ MD [id number] 10/09/2014 12:11:00 10/09/2014 23:59:59 CLS Outpatient ANTHONY HAQ MD [id number] 09/08/2014 12:07:00 09/08/2014 23:59:59 CLS Outpatient ANTHONY HAQ MD [id number] 08/12/2014 09:13:00 08/12/2014 23:59:59 CLS Outpatient ANTHONY HAQ MD [id number] 07/13/2014 12:09:00 07/13/2014 23:59:59 CLS Outpatient ANTHONY HAQ MD [id number] 06/10/2014 12:09:00 06/10/2014 23:59:59 CLS Outpatient ANTHONY HAQ MD [id number] 05/11/2014 12:08:00 05/11/2014 23:59:59 CLS Outpatient ANTHONY HAQ MD [id number] 04/16/2014 08:15:00 04/16/2014 23:59:59 CLS Outpatient BRANDON CAMPBELL DDS [id number] 03/30/2014 12:09:00 03/30/2014 23:59:59 CLS Outpatient ANTHONY HAQ MD [id number] 03/16/2014 12:11:00 03/16/2014 23:59:59 CLS Outpatient ANTHONY HAQ MD [id number] 03/03/2014 12:08:00 03/03/2014 23:59:59 CLS Outpatient ANTHONY HAQ MD [id number] 02/06/2014 12:18:00 02/06/2014 23:59:59 CLS Outpatient ANTHONY HAQ MD [id number] 01/22/2014 12:10:00 01/22/2014 23:59:59 CLS Outpatient ANTHONY HAQ MD [id number] 01/12/2014 09:39:00 01/12/2014 23:59:59 CLS Outpatient NEGRO NAYAK DO [id number] 01/09/2014 12:45:00 01/09/2014 23:59:59 CLS Outpatient NEGRO NAYAK DO [id number] 01/07/2014 17:10:00 01/07/2014 23:59:59 CLS Outpatient CABRERA VARELA APRN [id number] 01/05/2014 17:10:00 01/05/2014 23:59:59 CLS Outpatient NEGRO NAAYK DO [id number] 12/17/2013 12:09:00 12/17/2013 23:59:59 CLS Outpatient ANTHONY HAQ MD [id number] 11/17/2013 12:25:00 11/17/2013 23:59:59 CLS Outpatient ANTHONY HAQ MD [id number] 10/16/2013 12:11:00 10/16/2013 23:59:59 CLS Outpatient ANTHONY HAQ MD [id number] 09/15/2013 12:19:00 09/15/2013 23:59:59 CLS Outpatient ANTHONY HAQ MD [id number] 09/01/2013 12:44:00 09/01/2013 23:59:59 CLS Outpatient ANTHONY HAQ MD [id number] 08/19/2013 12:09:00 08/19/2013 23:59:59 CLS Outpatient ANTHONY HAQ MD [id number] 08/04/2013 12:10:00 08/04/2013 23:59:59 CLS Outpatient ANTHONY HAQ MD [id number] 07/22/2013 12:09:00 07/22/2013 23:59:59 CLS Outpatient ANTHONY HAQ MD [id number] 07/08/2013 12:13:00 07/08/2013 23:59:59 CLS Outpatient ANTHONY HAQ MD [id number] 06/24/2013 09:11:00 06/24/2013 23:59:59 CLS Outpatient ANTHONY HAQ MD [id number] 06/02/2013 12:08:00 06/02/2013 23:59:59 CLS Outpatient ANTHONY HAQ MD [id number] 05/19/2013 12:14:00 05/19/2013 23:59:59 CLS Outpatient ANTHONY HAQ MD [id number] 05/05/2013 12:09:00 05/05/2013 23:59:59 CLS Outpatient ANTHONY HAQ MD [id number] 09/24/2012 15:44:00 09/24/2012 23:59:59 [place] [id number] 08/09/2010 09:21:00 08/09/2010 23:59:59 CLS Outpatient [id number] 03/04/2013 12:12:00 Document Registration [id number] 02/17/2013 16:03:00 Document Registration [id number] 04/01/2015 12:16:31 ACT Document Registration [id number] 10/11/2017 12:40:00 10/11/2017 23:59:59 CLS Outpatient ANTHONY HAQ MD [facility] [place] [id number] 04/20/2017 09:05:00 04/20/2017 23:59:59 CLS Outpatient SHANE LEOS [facility] CARD CAD I25.10 [id number] 03/16/2017 06:56:00 03/16/2017 23:59:59 CLS Outpatient BAIMA, SHANE L GLUING MACHINE OPERATOR [facility] LAB I25.10 [id number] 09/15/2016 06:18:00 09/15/2016 23:59:59 CLS Outpatient BAIMA, SHANE L GLUING MACHINE OPERATOR [facility] LAB CAD,DMITRY,CHF, HYPERLIPIDEMIA,HYPERTENSION,TOBACCO US [id number] 09/05/2016 14:23:00 09/05/2016 23:59:59 CLS Outpatient BAIMA, SHANE L GLUING MACHINE OPERATOR [facility] CAD,CAROTID ARTERY STENOSIS [id number] 01/17/2016 13:26:00 01/17/2016 23:59:59 CLS Outpatient BAIMA, SHANE L 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 CARDIOMYOPATHY ISCHEMIC [id number] 01/14/2016 13:40:00 01/14/2016 15:19:00 DIS Outpatient HEATHER HERNANDEZ DO [facility] RT OBESITY,SNORING, TOBACCO USE [id number] 12/07/2015 06:55:00 12/07/2015 23:59:59 CLS Outpatient BAIMA, SHANE L GLUING MACHINE OPERATOR [facility] CARD CHEST PAIN,DYSPNEA, CAD,CAROTID ARTERY STENOSIS,HTN [id number] 12/06/2015 08:01:00 12/06/2015 23:59:59 CLS Outpatient BAIMA, SHANE L GLUING MACHINE OPERATOR [facility] CARD DYSPNEA,HTN,CHRONIC SYSTOLIC CHF [id number] 04/01/2015 06:37:00 04/01/2015 23:59:59 CLS Outpatient BAIMA, SHANE L GLUING MACHINE OPERATOR [facility] LAB CAD,HLP [id number] 10/09/2014 06:33:00 10/09/2014 23:59:59 CLS Outpatient BAIMA, SHANE L GLUING MACHINE OPERATOR [facility] LAB HLP,CAD [id number] 05/25/2014 07:26:00 05/25/2014 23:59:59 CLS Outpatient BAIMA, SHANE L GLUING MACHINE OPERATOR [facility] CARD ESCHEMIC CARDIO MYOPATHY,CAD [id number] 01/30/2014 06:47:00 01/30/2014 23:59:59 CLS Outpatient SHANE LEOS [facility] LAB HYPERLIPIDEMIA,CAD [id number] 08/27/2013 13:19:00 08/27/2013 23:59:59 CLS Outpatient [id number] 08/18/2013 11:28:00 08/18/2013 23:59:59 CLS Outpatient [id number] 08/04/2013 06:55:00 08/04/2013 23:59:59 CLS Outpatient [id number] 05/13/2013 06:44:00 05/13/2013 23:59:59 CLS Outpatient [id number] 04/29/2013 06:40:00 04/29/2013 12:30:00 DIS Outpatient [id number] 04/03/2013 06:38:00 04/03/2013 23:59:59 CLS Outpatient [id number] 02/17/2013 09:11:00 02/17/2013 23:59:59 CLS Outpatient [id number] 02/03/2013 12:47:00 02/05/2013 20:30:00 DIS Inpatient
--- NOTE | 2017-10-15 08:25 | ED General ---
General Chief Complaint: Dizziness/Syncope Stated Complaint: OFF BALANCE SPELL THIS MORNING Nursing Triage Note: ARRIVED VIA AMB TO ROOM 05. STATES AT APPX 0730 HE HAD A SUDDEN ONCASE OF DIZINESS THAT CAUSED HIM TO FALL TO THE FLOOR. DENIES HITTING HIS HEAD BUT HIT HIS LEFT KNEE. STATES NOW HE JUST FEELS REAL TIRED. Nursing Sepsis Screen: No Definite Risk Source of Information: Patient Exam Limitations: No Limitations History of Present Illness Date Seen by Provider: Oct 15, 2017 Time Seen by Provider: 08:00 Initial Comments This 62-year-old gentleman presents to the emergency room with complaints of sudden onset of dizziness after standing up. He fell to one knee but denies any injury. He had no loss of consciousness. He felt pretty well immediately after this episode but then became very weak. He denies any chest pain or palpitations. He has chronic shortness of air but no acute exacerbation. He states he feels similar to when he had an WA in 2009. He has history of vascular disease and has had coronary stenting as well as placement of an IVC filter for DVT. Patient continues to smoke and drinks alcohol 2-3 days per week. He had 3 mixed drinks last night while watching a movie. His primary care provider is Dr. Haq, his senior software engineering manager is Dr. Fishman, and his spinning operator is Dr. Gallegos's nurse practitioner. He takes warfarin. He denies any headache, injury, or focal neurologic deficits. Patient had a stress test in 2015 showing a inferolateral WA without ischemia. Cardiac catheter in 2012 showed patent stents with mild coronary artery disease. Echocardiogram April of last year showed ejection fraction of 55-60 percent. Review of patient's chart notes that he had a sudden cardiac from [place] and ventricular fibrillation in 2009. Allergies and Home Medications Allergies Coded Allergies: No Known Drug Allergies (Unverified , 05/23/10) Home Medications Aspirin 81 Mg Tabec, 81 MG PO DAILY, (Reported) Atenolol 25 Mg Tablet, 25 MG PO DAILY, (Reported) Atorvastatin Calcium 40 Mg Tablet, 40 MG PO HS, (Reported) Clopidogrel Bisulfate 75 Mg Tablet, 75 MG PO DAILY, (Reported) Furosemide 40 Mg Tab, 40 MG PO DAILY, (Reported) Lisinopril 2.5 Mg Tablet, 2.5 MG PO DAILY, (Reported) [place]-3/Dha/Epa/Fish Oil 1,000 Mg Capsule, 1,000 MG PO BID, (Reported) Spironolactone 25 Mg Tablet, 25 MG PO BID, (Reported) Warfarin Sodium 5 Mg Tablet, 5 MG PO HS, (Reported) Patient Home Medication List Home Medication List Reviewed: Yes Review of Systems Constitutional: see HPI, weakness EENTM: no symptoms reported Respiratory: see HPI (chronic shortness of air) Cardiovascular: see HPI Gastrointestinal: no symptoms reported Genitourinary: no symptoms reported Musculoskeletal: no symptoms reported Skin: no symptoms reported Psychiatric/Neurological: No Symptoms Reported Hematologic/Lymphatic: No Symptoms Reported Immunological/Allergic: no symptoms reported Past Wcxjyxg-Acafjj-Yvihet Hx Patient Social History Alcohol Use: Regular Use Recreational Drug Use: No Smoking Status: Current Everyday Smoker Recent Foreign Travel: No Contact w/Someone Who Travel: No Recent Infectious Disease Expo: No Recent Hopitalizations: No Immunizations Up To Date Tetanus Booster (TDap): Less than 5yrs Date of Pneumonia Vaccine: Dec 31, 2012 Date of Influenza Vaccine: Apr 29, 2013 Past Medical History Surgeries: Yes (LIPOMA? REMOVED FROM HEAD) Coronary Stent Respiratory: Yes (tobaccoism) COPD Cardiac: Yes (CARDIAC STENTS) Coronary Artery Disease, Deep Vein Thrombosis, Heart Attack, Hypertension Neurological: No Genitourinary: No Gastrointestinal: No Musculoskeletal: Yes Degenerate Disk Disease, Chronic Back Pain Endocrine: No HEENT: No Cancer: No Psychosocial: No Integumentary: No Blood Disorders: No Physical Exam Vital Signs Vital Signs - First Documented 10/15/17 07:55 Temp 98.0 Pulse 78 Resp 18 B/P (MAP) 158/98 (118) Pulse Ox 97 O2 Delivery Room Air Capillary Refill : Less Than 3 Seconds General Appearance: No Apparent Distress, WD/WN, Obese HEENT: PERRL/EOMI, Normal ENT Inspection Neck: Normal Inspection; No Carotid Bruit, No JVD Respiratory: Lungs Clear, Normal Breath Sounds, No Accessory Muscle Use, No Respiratory Distress Cardiovascular: Regular Rate, Rhythm, No Edema, No Murmur Gastrointestinal: Non Tender, Soft Extremity: Normal Inspection, No Pedal Edema Neurologic/Psychiatric: Alert, Oriented x3, No Motor/Sensory Deficits, Normal Mood/Affect, 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 No focal deficits found on exam) Skin: Normal Color, Warm/Dry Progress/Results/Core Measures Suspected Sepsis Recent Fever Within 48 Hours: No Infection Criteria Present: None New/Unexplained Altered Menta: No Sepsis Screen: No Definite Risk SIRS Temperature:98.0 Pulse: 78 Respiratory Rate: 18 Laboratory Tests 10/15/17 08:20: White Blood Count 12.1H Blood Pressure 158 /98 Mean: 118 Laboratory Tests 10/15/17 08:20: Creatinine 1.28, INR Comment 2.1H, Platelet Count 297, Total Bilirubin 0.8 Results/Orders Lab Results Laboratory Tests Test 10/15/17 08:20 10/15/17 10:00 Range/Units White Blood Count 12.1 H 4.3-11.0 10^3/uL Red Blood Count 4.83 4.35-5.85 10^6/uL Hemoglobin 15.9 13.3-17.7 G/DL Hematocrit 45 40-54 % Mean Corpuscular Volume 92 80-99 FL Mean Corpuscular Hemoglobin 33 25-34 PG Mean Corpuscular Hemoglobin Concent 36 32-36 G/DL Red Cell Distribution Width 13.5 10.0-14.5 % Platelet Count 297 130-400 10^3/uL Mean Platelet Volume 9.4 7.4-10.4 FL Neutrophils (%) (Auto) 63 42-75 % Lymphocytes (%) (Auto) 27 12-44 % Monocytes (%) (Auto) 8 0-12 % Eosinophils (%) (Auto) 2 0-10 % Basophils (%) (Auto) 0 0-10 % Neutrophils # (Auto) 7.6 1.8-7.8 X 10^3 Lymphocytes # (Auto) 3.2 1.0-4.0 X 10^3 Monocytes # (Auto) 1.0 0.0-1.0 X 10^3 Eosinophils # (Auto) 0.2 0.0-0.3 10^3/uL Basophils # (Auto) 0.1 0.0-0.1 10^3/uL Prothrombin Time 23.7 H 12.2-14.7 SEC INR Comment 2.1 H 0.8-1.4 Activated Partial Thromboplast Time 34 24-35 SEC Sodium Level 138 135-145 MMOL/L Potassium Level 4.2 3.6-5.0 MMOL/L Chloride Level 105 98-107 MMOL/L Carbon Dioxide Level 22 21-32 MMOL/L Anion Gap 11 5-14 MMOL/L Blood Urea Nitrogen 17 7-18 MG/DL Creatinine 1.28 0.60-1.30 MG/DL Estimat Glomerular Filtration Rate 57 BUN/Creatinine Ratio 13 Glucose Level 120 H 70-105 MG/DL Calcium Level 9.3 8.5-10.1 MG/DL Magnesium Level 2.0 1.8-2.4 MG/DL Total Bilirubin 0.8 0.1-1.0 MG/DL Aspartate Amino Transf (AST/SGOT) 28 5-34 U/L Alanine Aminotransferase (ALT/SGPT) 33 0-55 U/L Alkaline Phosphatase 55 40-136 U/L Myoglobin 65.9 10.0-92.0 NG/ML Troponin I < 0.30 <0.30 NG/ML Total Protein 7.3 6.4-8.2 GM/DL Albumin 4.4 3.2-4.5 GM/DL Serum Alcohol < 10 <10 MG/DL Urine Color YELLOW Urine Clarity CLEAR Urine pH 6 5-9 Urine Specific [place] 1.010 L 1.016-1.022 Urine Protein NEGATIVE NEGATIVE Urine Glucose (UA) NEGATIVE NEGATIVE Urine Ketones NEGATIVE NEGATIVE Urine Nitrite NEGATIVE NEGATIVE Urine Bilirubin NEGATIVE NEGATIVE Urine Urobilinogen NORMAL NORMAL MG/DL Urine Leukocyte Esterase NEGATIVE NEGATIVE Urine RBC (Auto) 1+ H NEGATIVE Urine RBC 0-2 /HPF Urine WBC NONE /HPF Urine Crystals NONE /LPF Urine Bacteria NEGATIVE /HPF Urine Casts NONE /LPF Urine Mucus NEGATIVE /LPF Urine Culture Indicated NO My Orders Orders - RISSA SMALL MD Ekg Tracing (10/15/17 07:58) Cbc With Automated Diff (10/15/17 08:13) Magnesium (10/15/17 08:13) Chest 1 View, Ap/Pa Only (10/15/17 08:13) Cardiac Profile 1 (10/15/17 08:13) Comprehensive Metabolic Panel (10/15/17 08:13) Myoglobin Serum (10/15/17 08:13) Protime With Inr (10/15/17 08:13) Partial Thromboplastin Time (10/15/17 08:13) O2 (10/15/17 08:13) Monitor-Rhythm Ecg Trace Only (10/15/17 08:13) Lipid Panel (10/16/17 06:00) Saline Lock/Iv-Start (10/15/17 08:13) Alcohol (10/15/17 08:13) Us Carotid T[place]ani Complete 13141 (10/15/17 08:33) Ns Iv 1000 Ml (Sodium Chloride 0.9%) (10/15/17 09:44) Ua Culture If Indicated (10/15/17 09:44) Aspirin Chewable Tablet (Baby Aspirin Ch (10/15/17 12:30) Medications Given in ED Current Medications Medications Dose Ordered Sig/Rebekah Route Start Time Stop Time Status Last Admin Dose Admin Sodium Chloride 1,000 ml @ 0 mls/hr Q0M ONCE IV 10/15/17 09:44 10/15/17 09:46 DC 10/15/17 10:08 1,000 MLS/HR Vital Signs/I&O 10/15/17 10/15/17 07:55 08:12 Temp 98.0 Pulse 78 76 79 82 Resp 18 B/P (MAP) 158/98 (118) 144/90 (108) 150/90 (110) 130/85 (100) Pulse Ox 97 O2 Delivery Room Air Capillary Refill : Less Than 3 Seconds Blood Pressure Mean: 118 Progress Note #1: Time: 09:46 Progress Note Workup has been unremarkable so far except for slight leukocytosis. Patient did have a sensation of disequilibrium when he stood up for orthostatic blood pressures. Orthostatic measurements were not clinically significant. The UA is being collected for further evaluation and a liter of IV fluids has been ordered. We will reassess his status after the fluids. He has had no chest pain or shortness of breath since arriving to the ER. Progress Note #2: Time: 12:14 Progress Note Patient was able to ambulate after IV fluids without any symptoms. His ER stay was unremarkable. Case was discussed with Dr. Fishman who requested admission for observation. Patient is a high risk with his history of sudden cardiac and coronary artery disease. He will be admitted to Dr. Ferreira with a Dr. Fishman consultation. ECG Initial ECG Impression Date: Oct 15, 2017 Initial ECG Impression Time: 07:54 Initial ECG Rate: 75 Initial ECG Rhythm: Normal Sinus Comment Normal sinus rhythm with no ST elevation or depression. No abnormal intervals or axis deviation. Diagnostic Imaging Diagonstic Imaging: Xray Plain Films/CT/US/NM/MRI: chest Comments Chest x-ray viewed by me and report reviewed. See report below: NAME: MARTINE [facility] REC#: [id number] PT STATUS: REG ER : 1955 PHYSICIAN: RISSA SMALL MD ADMIT DATE: 10/15/17/ER Draft Date of Exam:10/15/17 CHEST 1 VIEW, AP/PA ONLY INDICATION: Syncopal episode. Time of exam 8:36 AM Correlation is made with prior study from 01/14/2016. The heart size is normal. The pulmonary vascularity is unremarkable. The lungs are clear. No infiltrate, effusion or pneumothorax is detected. Impression: No acute cardiopulmonary process is detected. Dictated on workstation # [id number] Dict: 10/15/1741 Trans: 10/15/17 0842 [facility] [id number] Interpreted by: NIKKO SHETTY MD Diagonstic Imaging: Ultrasound Plain Films/CT/US/NM/MRI: other (bilateral carotid arteries) Comments NAME: MARTINE LINDSEY [facility] REC#: [id number] PT STATUS: REG ER : 1955 PHYSICIAN: RISSA SMALL MD ADMIT DATE: 10/15/17/ER Draft Date of Exam:10/15/17 US CAROTID TIFFANI COMPLETE [id number] PROCEDURE: US carotid duplex, bilateral. TECHNIQUE: Multiple real-time grayscale images were obtained over the carotid arteries in various projections, bilaterally. Additional duplex Doppler and color Doppler images were also obtained. INDICATION: Dizziness. Minimal plaquing at the bifurcations and proximal ICAs is seen. Velocities are normal bilaterally. No velocity elevation or stenosis is identified. The right vertebral artery demonstrates antegrade flow. Left vertebral artery was not visualized. Parameters based on the consensus panel Norton-Scale and Doppler ultrasound criteria published May 2003, Radiology, Volume 229. DOPPLER (peak systolic velocity M/S Right Left CCA .98 .96 ICA Proximal .68 .62 ICA Mid .58 .60 ICA Distal .77 .60 RATIO 78 64 ECA .95 1.9 VERT .39 NA IMPRESSION: 1. No evidence of a hemodynamically significant stenosis. 2. Nonvisualized left vertebral artery. Dictated on workstation # [id number] Dict: 10/15/17 0917 Trans: 10/15/17 0919 [facility] [id number] Interpreted by: NIKKO SHETTY MD Reviewed: Reviewed by Me Departure Communication (Admissions) Time/Spoke to Admitting Phy: 12:10 Dr. Ferreira Time/Spoke to Consulting Phy: 12:05 Dr. Fishman Impression Primary Impression: Dizziness Additional Impressions: Coronary artery disease Qualified Codes: I25.10 - Atherosclerotic heart disease of [place] coronary artery without angina pectoris History of sudden cardiac successfully resuscitated Disposition: ADMITTED INPATIENT Condition: Stable Admissions Decision to Admit Reason: Admit from ER (General) Decision to Admit/Date: Oct 15, 2017 Time/Decision to Admit Time: 12:05 Departure-Patient Inst. Referrals: ANTHONY HAQ MD (PCP/Family) Primary Care Physician Copy Copies To 1: JAEL FISHMAN MD FAC FAC CCDS Copies To 2: ANTHONY HAQ MD, JOSHUA T MD Oct 15, 2017 08:25
[2017-10-15 08:29] LABS: BASOPHILS # (AUTO) 0.1 10^3/uL (0.0-0.1); BASOPHILS % (AUTO) 0 % (0-10); EOSINOPHILS # (AUTO) 0.2 10^3/uL (0.0-0.3); EOSINOPHILS % (AUTO) 2 % (0-10); HEMATOCRIT 45 % (40-54); HEMOGLOBIN 15.9 G/DL (13.3-17.7); LYMPHOCYTES # (AUTO) 3.2 X 10^3 (1.0-4.0); LYMPHOCYTES % (AUTO) 27 % (12-44); MEAN CORPUSCULAR HEMOGLOBIN 33 PG (25-34); MEAN CORPUSCULAR HGB CONC 36 G/DL (32-36); MEAN CORPUSCULAR VOLUME 92 FL (80-99); MEAN PLATELET VOLUME 9.4 FL (7.4-10.4); MONOCYTES % (AUTO) 8 % (0-12); NEUTROPHILS # (AUTO) 7.6 X 10^3 (1.8-7.8); NEUTROPHILS % (AUTO) 63 % (42-75); PLATELET COUNT 297 10^3/uL (130-400); RED BLOOD COUNT 4.83 10^6/uL (4.35-5.85); RED CELL DISTRIBUTION WIDTH 13.5 % (10.0-14.5); WHITE BLOOD COUNT 12.1 10^3/uL (4.3-11.0)
--- NOTE | 2017-10-15 08:43 | Diagnostic Imaging Report ---
INDICATION: Syncopal episode. Time of exam 8:36 AM Correlation is made with prior study from 01/14/2016. The heart size is normal. The pulmonary vascularity is unremarkable. The lungs are clear. No infiltrate, effusion or pneumothorax is detected. Impression: No acute cardiopulmonary process is detected. Dictated by: Dictated on workstation # [id number]
[2017-10-15 08:54] LABS: ALANINE AMINOTRANSFERASE 33 U/L (0-55); ALBUMIN 4.4 GM/DL (3.2-4.5); ALKALINE PHOSPHATASE 55 U/L (40-136); BILIRUBIN,TOTAL 0.8 MG/DL (0.1-1.0); BUN/CREATININE RATIO 13; CALCIUM 9.3 MG/DL (8.5-10.1); CARBON DIOXIDE 22 MMOL/L (21-32); CHLORIDE 105 MMOL/L (98-107); CREATININE SERUM 1.28 MG/DL (0.60-1.30); GFR ESTIMATED 57; GLUCOSE 120 MG/DL (70-105); POTASSIUM 4.2 MMOL/L (3.6-5.0); SODIUM 138 MMOL/L (135-145); TOTAL PROTEIN 7.3 GM/DL (6.4-8.2)
[2017-10-15 09:01] LABS: MYOGLOBIN SERUM 65.9 NG/ML (10.0-92.0)
[2017-10-15 09:13] LABS: INR 2.1 (0.8-1.4); PROTHROMBIN TIME PATIENT 23.7 SEC (12.2-14.7)
--- NOTE | 2017-10-15 09:19 | Diagnostic Imaging Report ---
PROCEDURE: US carotid duplex, bilateral. TECHNIQUE: Multiple real-time grayscale images were obtained over the carotid arteries in various projections, bilaterally. Additional duplex Doppler and color Doppler images were also obtained. INDICATION: Dizziness. Minimal plaquing at the bifurcations and proximal ICAs is seen. Velocities are normal bilaterally. No velocity elevation or stenosis is identified. The right vertebral artery demonstrates antegrade flow. Left vertebral artery was not visualized. Parameters based on the consensus panel Norton-Scale and Doppler ultrasound criteria published May 2003, Radiology, Volume 229. DOPPLER (peak systolic velocity M/S Right Left CCA .98 .96 ICA Proximal .68 .62 ICA Mid .58 .60 ICA Distal .77 .60 RATIO 78 64 ECA .95 1.9 VERT .39 NA IMPRESSION: 1. No evidence of a hemodynamically significant stenosis. 2. Nonvisualized left vertebral artery. Dictated by: Dictated on workstation # [id number]
[2017-10-15] MEDS ORDERED: NS IV 1000 ML 1,000 ML IV ONE (09:44)
[2017-10-15 10:10] LABS: BILIRUBIN,URINE NEGATIVE (NEGATIVE); CLARITY,URINE CLEAR; COLOR,URINE YELLOW; GLUCOSE, URINE (UA) NEGATIVE (NEGATIVE); KETONES,URINE NEGATIVE (NEGATIVE); LEUKOCYTE ESTERASE ,URINE NEGATIVE (NEGATIVE); NITRITE,URINE NEGATIVE (NEGATIVE); PH,URINE 6 (5-9); PROTEIN,URINE NEGATIVE (NEGATIVE); UROBILINOGEN,URINE NORMAL (NORMAL)
[2017-10-15 10:17] LABS: BACTERIA,URINE NEGATIVE /HPF; RBC,URINE 0-2 /HPF
[2017-10-15] MEDS ORDERED: ASPIRIN 81 MG CHEW (CHILDREN'S ASA) PO ONE (12:30)
[2017-10-15] MEDS ORDERED: CATHETER FLUSH 10 ML SYR IV PRN (13:30)
--- NOTE | 2017-10-15 13:51 | History & Physicial (CHS) ---
HPI History of Present Illness: 62 yo male presented to ER after an episode at work this morning. 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 He then went to his cubicle and sat for about 15 minutes. When he got up the next time he walked a brief period and then suddenly fell down to one knee almost as if he "stopped working". He had no chest pain or palpitations and denies feeling that his knee gave out. He did not lose consciousness and immediately stood back up, straightened the shelves and went back to sit. He felt weak all over afterward. He denies worsening shortness of breath (reports some at baseline with mild COPD/asthma). He had a sore throat and completed antibiotics about a week ago but has not had any other illness. He does have a history of stents in his heart, sudden cardiac and DVT for which he has an IVC and takes coumadin. Source: patient Date seen by provider: Oct 15, 2017 Time Seen by Provider: 13:48 Attending Physician Merced Ferreira MD PCP Andrade Haq MD Consult Date of Admission Oct 15, 2017 at 12:12 pm Home Medications Home Medications Reviewed patient Home Medication Reconciliation performed by pharmacy medication reconciliations optomechanical technician and/or nursing. Patients Allergies have been reviewed. Allergies Coded Allergies: No Known Drug Allergies (Unverified , 10/15/17) VFN-Tvyhrh-Wcykrp Hx Patient Social History Alcohol Use: Regular Use Recreational Drug Use: No Smoking Status: Current Everyday Smoker Type Used: Cigarettes Recent Foreign Travel: No Contact w/other who traveled: No Recent Hopitalizations: No Recent Infectious Disease Expo: No Physical Abuse Screen: No Sexual Abuse: No Immunizations Up To Date Tetanus Booster (TDap): Less than 5yrs Date of Pneumonia Vaccine: Dec 31, 2012 Date of Influenza Vaccine: Apr 29, 2013 Past Medical History PMHx: CAD with stenting DVT with IVC filter placement COPD/asthma PSurgHx: Discectomy Cardiac stenting IVC filter placement Family Medical History Significant Family History: Heart Disease Family History: Cardiovascular disease 19 MOTHER FH: lung cancer 19 FATHER Review of Systems ([facility]) Constitutional: No fever EENTM: nose congestion Respiratory: cough (in the mornings, chronic), short of breath (chronic, baseline) Cardiovascular: No chest pain, No palpitations Gastrointestinal: No abdominal pain, No constipation, No diarrhea, No nausea, No vomiting Genitourinary: No dysuria Musculoskeletal: No joint pain Skin: No rash Psychiatric/Neurological: No Symptoms Reported Reviewed Test Results Reviewed Test Results Lab Laboratory Tests Test 10/15/17 08:20 10/15/17 10:00 Range/Units White Blood Count 12.1 H 4.3-11.0 10^3/uL Red Blood Count 4.83 4.35-5.85 10^6/uL Hemoglobin 15.9 13.3-17.7 G/DL Hematocrit 45 40-54 % Mean Corpuscular Volume 92 80-99 FL Mean Corpuscular Hemoglobin 33 25-34 PG Mean Corpuscular Hemoglobin Concent 36 32-36 G/DL Red Cell Distribution Width 13.5 10.0-14.5 % Platelet Count 297 130-400 10^3/uL Mean Platelet Volume 9.4 7.4-10.4 FL Neutrophils (%) (Auto) 63 42-75 % Lymphocytes (%) (Auto) 27 12-44 % Monocytes (%) (Auto) 8 0-12 % Eosinophils (%) (Auto) 2 0-10 % Basophils (%) (Auto) 0 0-10 % Neutrophils # (Auto) 7.6 1.8-7.8 X 10^3 Lymphocytes # (Auto) 3.2 1.0-4.0 X 10^3 Monocytes # (Auto) 1.0 0.0-1.0 X 10^3 Eosinophils # (Auto) 0.2 0.0-0.3 10^3/uL Basophils # (Auto) 0.1 0.0-0.1 10^3/uL Prothrombin Time 23.7 H 12.2-14.7 SEC INR Comment 2.1 H 0.8-1.4 Activated Partial Thromboplast Time 34 24-35 SEC Sodium Level 138 135-145 MMOL/L Potassium Level 4.2 3.6-5.0 MMOL/L Chloride Level 105 98-107 MMOL/L Carbon Dioxide Level 22 21-32 MMOL/L Anion Gap 11 5-14 MMOL/L Blood Urea Nitrogen 17 7-18 MG/DL Creatinine 1.28 0.60-1.30 MG/DL Estimat Glomerular Filtration Rate 57 BUN/Creatinine Ratio 13 Glucose Level 120 H 70-105 MG/DL Calcium Level 9.3 8.5-10.1 MG/DL Magnesium Level 2.0 1.8-2.4 MG/DL Total Bilirubin 0.8 0.1-1.0 MG/DL Aspartate Amino Transf (AST/SGOT) 28 5-34 U/L Alanine Aminotransferase (ALT/SGPT) 33 0-55 U/L Alkaline Phosphatase 55 40-136 U/L Myoglobin 65.9 10.0-92.0 NG/ML Troponin I < 0.30 <0.30 NG/ML Total Protein 7.3 6.4-8.2 GM/DL Albumin 4.4 3.2-4.5 GM/DL Serum Alcohol < 10 <10 MG/DL Urine Color YELLOW Urine Clarity CLEAR Urine pH 6 5-9 Urine Specific [place] 1.010 L 1.016-1.022 Urine Protein NEGATIVE NEGATIVE Urine Glucose (UA) NEGATIVE NEGATIVE Urine Ketones NEGATIVE NEGATIVE Urine Nitrite NEGATIVE NEGATIVE Urine Bilirubin NEGATIVE NEGATIVE Urine Urobilinogen NORMAL NORMAL MG/DL Urine Leukocyte Esterase NEGATIVE NEGATIVE Urine RBC (Auto) 1+ H NEGATIVE Urine RBC 0-2 /HPF Urine WBC NONE /HPF Urine Crystals NONE /LPF Urine Bacteria NEGATIVE /HPF Urine Casts NONE /LPF Urine Mucus NEGATIVE /LPF Urine Culture Indicated NO Radiology CXR 10/15: No acute process Carotid US 10/15 DRAFT IMPRESSION: 1. No evidence of a hemodynamically significant stenosis. 2. Nonvisualized left vertebral artery. Physical Exam-([facility]) Physical Exam Vital Signs VS - Last 72 Hours, by Label 10/15/17 10/15/17 10/15/17 10/15/17 07:55 08:12 12:55 13:17 Temp 98.0 96.6 Pulse 78 76 72 68 79 82 Resp 18 16 18 B/P (MAP) 158/98 (118) 144/90 (108) 122/84 137/75 (95) 150/90 (110) 130/85 (100) Pulse Ox 97 98 98 O2 Delivery Room Air Room Air Room Air 10/15/17 13:32 Pulse 68 Resp 16 B/P (MAP) 141/83 (102) O2 Delivery Room Air Capillary Refill : Less Than 3 Seconds General Appearance: WD/WN, no apparent distress Eyes: Bilateral Eye EOMI HEENT: No scleral icterus (R), No scleral icterus (L) Respiratory: lungs clear, normal breath sounds, no respiratory distress Cardiovascular: regular rate, rhythm, no murmur Gastrointestinal: normal bowel sounds, non tender, soft Extremities: no pedal edema Neurologic/Psychiatric: alert, normal mood/affect; No aphasia, No facial droop Skin: normal color, warm/dry, ecchymosis (scattered) Assessment/Plan Assessment/Plan Admission Dx Fall/loss of tone Admission Status: Observation (1) Dizziness Status: Acute Assessment & Plan: No clear etiology and not truly dizziness but more described as generalized weakness which is now improved. Given his CAD history and ventricular fibrillation history, admitted for observation on telemetry. Consult Dr. Fishman. (2) Coronary artery disease Status: Acute Assessment & Plan: Consult Cardiology as noted above. Qualifiers: Qualified Codes: I25.10 - Atherosclerotic heart disease of [place] coronary artery without angina pectoris (3) History of DVT (deep vein thrombosis) Status: Chronic Assessment & Plan: On coumadin with therapeutic INR Clinical Quality Measures DVT/VTE Risk/Contraindication: Risk Factor Score Per Nursin RFS Level Per Nursing on Admit: 4+=Very High Copy Copies To 1: ANDRADE HAQ MD, BETHANY N MD Oct 15, 2017 1:51 pm
[2017-10-15] MEDS ORDERED: PATIENT MAY USE OWN MEDS, ALL MC SCH (14:00)
[2017-10-15] MEDS ORDERED: LISI10TA2 PO (14:03)
[2017-10-15] MEDS ORDERED: ASPI-983 PO (14:03)
[2017-10-15] MEDS ORDERED: FLUT1AER INH (14:03)
[2017-10-15] MEDS ORDERED: UMEC62.5 INH (14:03)
[2017-10-15] MEDS ORDERED: MONT10TA24 PO (14:03)
[2017-10-15] MEDS ORDERED: WARF-48 PO ×2 (14:03→14:43)
[2017-10-15] MEDS ORDERED: SPIR25TA5 PO (14:03)
[2017-10-15] MEDS ORDERED: ATEN25TA PO (14:03)
[2017-10-15] MEDS ORDERED: OMEG-160 PO (14:03)
[2017-10-15] MEDS ORDERED: FURO40TA4 PO (14:03)
[2017-10-15] MEDS ORDERED: ATOR40TA70 PO (14:03)
[2017-10-15] MEDS: CATHETER FLUSH 10 ML SYR IV SCH ×2 (14:11→21:08)
[2017-10-15 14:35] LABS: CREATINE KINASE 93 U/L (30-200)
[2017-10-15] MEDS ORDERED: CETI10TA20 PO (14:46)
[2017-10-15] MEDS ORDERED: [UNRECOGNIZED DRUG - CODE] NS (15:16)
[2017-10-15] MEDS ORDERED: RT-ALBUINH IH (15:17)
--- NOTE | 2017-10-15 16:53 | Consultation-Cardiology ---
HPI-Cardiology Cardiology Consultation: Date of Consultation 10/15/17 Time Seen by Provider: 16:55 Date of Admission Attending Physician Merced Ferreira MD Admitting Physician Andrade Montez MD Consulting Physician JAEL ASHER MD, MA, FACP, FACC, FSCAI, CCDS HPI: Chief Complaint: CC: Dizziness HPI: 62 yo man with card history as noted below, who had an episode of dizziness this am. Was seated at his computer desk. Got up to turn the lights on. By the time he got to the switch, he had onset of gen weakness and sank to his knees and was then OK. No cp or palp or tony syncope. Came to ER. Was felt to be dehydrated because had some orthostatic dizziness. Was treated with iv fluids. Has since felt well. No leg swelling Review of Systems-Cardiology Review of Systems Constitutional: lightheadedness; No weight loss, No weight gain Eyes: No vision change Ears/Nose/Throat: No ear discharge, No nasal drainage, No ulcerations Respiratory: As described under HPI Cardiovascular: As described under HPI Gastrointestinal: No constipation, No diarrhea, No nausea, No vomiting Genitourinary: No dysuria, No hematuria, No urine frequency changes Musculoskeletal: back pain (chronic) Skin: No rash, No ulcerations Psychiatric/Neurological: No seizure, No focal weakness, No syncope Hematologic: No bleeding abnormalities CZU-Jesznu-Dzarzl Hx Patient Social History Alcohol Use: Regular Use Recreational Drug Use: No Smoking Status: Current Everyday Smoker Type Used: Cigarettes Recent Foreign Travel: No Recent Infectious Disease Expo: No Physical Abuse Screen: No Sexual Abuse: No Immunizations Up To Date Tetanus Booster (TDap): Less than 5yrs Date of Pneumonia Vaccine: Dec 31, 2012 Date of Influenza Vaccine: Apr 29, 2013 Past Medical History PMH As described under Assessment. Family Medical History Family History: Cardiovascular disease 19 MOTHER FH: lung cancer 19 FATHER Allergies and Home Medications Allergies Coded Allergies: No Known Drug Allergies (Unverified , 10/15/17) Home Medications Albuterol Sulfate 1 Puff Puff, 2 PUFF IH Q4H PRN for SHORTNESS OF BREATH, ( Reported) 1 PUFF = 90 MCG Aspirin 81 Mg Tablet.dr, 81 MG PO DAILY, (Reported) Atenolol 25 Mg Tablet, 25 MG PO DAILY, (Reported) Atorvastatin Calcium 40 Mg Tablet, 40 MG PO HS, (Reported) Cetirizine HCl 10 Mg Tablet, 10 MG PO DAILY, (Reported) Fluticasone/Vilanterol 1 Each Blst.w.dev, 1 PUFF INH DAILY, (Reported) Furosemide 40 Mg Tablet, 40 MG PO DAILY, (Reported) Lisinopril 10 Mg Tablet, 10 MG PO DAILY, (Reported) Montelukast Sodium 10 Mg Tablet, 10 MG PO DAILY, (Reported) [place]-3/Dha/Epa/Fish Oil 1 Each Capsule, 2,000 MG PO BID, (Reported) TAKES 2 (1000MG) CAPSULES Oxymetazoline HCl 30 Ml [place], 1-2 SPRAYS NS HS, (Reported) Spironolactone 25 Mg Tablet, 25 MG PO BID, (Reported) Umeclidinium [place] 62.5 Mcg Blst.w.dev, 1 PUFF INH DAILY, (Reported) Warfarin Sodium 5 Mg Tablet, 5 MG PO MoTuThFrSa, (Reported) Warfarin Sodium 5 Mg Tablet, 7.5 MG PO SuWe, (Reported) TAKES 1 & 1/2 (5MG) TABLETS Patient Home Medication List Home Medication List Reviewed: Yes Physical Exam-Cardiology Physical Exam Vital Signs/I&O 10/15/17 10/15/17 10/15/17 10/15/17 07:55 08:12 12:55 13:00 Temp 98.0 Pulse 78 76 72 79 82 Resp 18 16 B/P (MAP) 158/98 (118) 144/90 (108) 122/84 150/90 (110) 130/85 (100) Pulse Ox 97 98 O2 Delivery Room Air Room Air Room Air 10/15/17 10/15/17 10/15/17 10/15/17 13:17 13:32 13:47 14:01 Temp 96.6 Pulse 68 68 62 72 Resp 18 16 16 B/P (MAP) 137/75 (95) 141/83 (102) 124/63 (83) Pulse Ox 98 O2 Delivery Room Air Room Air Room Air 10/15/17 10/15/17 10/15/17 10/15/17 14:02 14:17 14:42 15:11 Temp 99.3 Pulse 70 74 71 Resp 18 16 20 B/P (MAP) 162/73 (102) 146/69 (94) 121/70 (87) Pulse Ox 94 O2 Delivery Room Air Room Air Room Air Room Air FiO2 21 10/15/17 10/15/17 16:08 17:11 Temp 98.7 98.2 Pulse 75 65 Resp 20 20 B/P (MAP) 131/78 (95) 123/63 (83) Pulse Ox 95 94 O2 Delivery Room Air Room Air Capillary Refill : Less Than 3 Seconds Constitutional: AAO x 3, well-developed, well-nourished HEENT: PERRL, EOMI, hearing is well preserved Neck: carotid pulses are 2 + bilaterally, with good upstrokes Respiratory: No accessory muscle use; other (fair bilat air entry; increase exp phase; some exp wheezes; air entry somewhat diminished at the bses) Cardiovascular: regular rate-rhythm, S1 and S2, systolic murmur (faint LAURYN at card base) Gastrointestinal: No tender; soft; No guarding, No rebound; audible bowel sounds Extremities: No clubbing, No cyanosis, No significant edema Neurologic/Psychiatric: oriented x 3, grossly intact, power is 5/5 both on sides Skin: No rash on exposed areas, No ulcerations on exposed areas Data Review Labs Laboratory Tests 10/15/17 08:20: White Blood Count 12.1H, Red Blood Count 4.83, Hemoglobin 15.9, Hematocrit 45, Mean Corpuscular Volume 92, Mean Corpuscular Hemoglobin 33, Mean Corpuscular Hemoglobin Concent 36, Red Cell Distribution Width 13.5, Platelet Count 297, Mean Platelet Volume 9.4, Neutrophils (%) (Auto) 63, Lymphocytes (%) (Auto) 27, Monocytes (%) (Auto) 8, Eosinophils (%) (Auto) 2, Basophils (%) (Auto) 0, Neutrophils # (Auto) 7.6, Lymphocytes # (Auto) 3.2, Monocytes # (Auto) 1.0, Eosinophils # (Auto) 0.2, Basophils # (Auto) 0.1, Prothrombin Time 23.7H, INR Comment 2.1H, Activated Partial Thromboplast Time 34, Sodium Level 138, Potassium Level 4.2, Chloride Level 105, Carbon Dioxide Level 22, Anion Gap 11, Blood Urea Nitrogen 17, Creatinine 1.28, Estimat Glomerular Filtration Rate 57, BUN/Creatinine Ratio 13, Glucose Level 120H, Calcium Level 9.3, Magnesium Level 2.0, Total Bilirubin 0.8, Aspartate Amino Transf (AST/SGOT) 28, Alanine Aminotransferase (ALT/SGPT) 33, Alkaline Phosphatase 55, Myoglobin 65.9, Troponin I < 0.30, Total Protein 7.3, Albumin 4.4, Serum Alcohol < 10 10/15/17 10:00: Urine Color YELLOW, Urine Clarity CLEAR, Urine pH 6, Urine Specific [place] 1.010L, Urine Protein NEGATIVE, Urine Glucose (UA) NEGATIVE, Urine Ketones NEGATIVE, Urine Nitrite NEGATIVE, Urine Bilirubin NEGATIVE, Urine Urobilinogen NORMAL, Urine Leukocyte Esterase NEGATIVE, Urine RBC (Auto) 1+H, Urine RBC 0-2, Urine WBC NONE, Urine Crystals NONE, Urine Bacteria NEGATIVE, Urine Casts NONE, Urine Mucus NEGATIVE, Urine Culture Indicated NO 10/15/17 14:10: Troponin I < 0.30, Total Creatine Kinase 93 Andrade Montez MD Laboratory Tests 10/15/17 08:20 A/P-Cardiology Assessment/Admission Diagnosis Episode of dizziness on 10/15/17 of undetermined etiology Chronic exertional dyspnea of undetermined etiology for which he is following with Dr. Gallegos H/o deep venous thrombosis resulting in large saddle pulmonary embolism from which he has made a good clinical recovery. This was in Jan 2013. He was treated at [facility] in [place], [place]. He was treated with oral anticoag and placement of an IVC filter. He remains on oral warfarin which is followed by his PCP Coronary artery disease with a history of stenting of the left circumflex artery with a 4.5x20mm Liberte bare metal stent. Subsequently, in August 2012, the patient received Promus element 3.5 x 16 mm stent to the left circumflex deployed at 10 DEVYN. Last cath was in Apr 2013. It showed widely patent stents and LVEF 50%. MPI of 12-07-15 shows inferolateral myocardial infarction without significant ischemia. Inferolateral akinesis. 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 Hypertension, controlled Tobaccoism from which he has been advised to refrain Generalized fatigue and malaise of undetermined etiology, unchanged CKD stage 2 Gilbert's syndrome being followed by his PCP Segmental pressures of August 2016 showed no evidence of any significant obstructive arterial disease involving the lower limbs Discussion and Recomendations * Given his h/o CAD and ischemic cm, the concern is for arrhythmia as the cause of his dizziness * Telemetry * Monitor labs * Echo * MPI or cath. He has not agreed, but states will consider overnight * Further recs based on these studies Clinical Quality Measures DVT/VTE Risk/Contraindication: Risk Factor Score Per Nursin RFS Level Per Nursing on Admit: 4+=Very High JALE ASHER MD FACP FAC CCDS Oct 15, 2017 16:53
[2017-10-15] MEDS ORDERED: NON-FORMULARY MEDICATION 1 EA EA (Albuterol Sulfate (Proair Hfa) 2 PUFF) IH PRN (17:45)
[2017-10-15] MEDS ORDERED: RT-ALBUTEROL SULF 2.5 MG/3 ML PRE-MIX VIAL IH PRN (17:45)
[2017-10-15] MEDS: warFARin 5 MG (COUMADIN) TAB PO SCH (18:19)
[2017-10-15] MEDS: OMEGA 3 (FISH OIL) 1000 MG CAP PO SCH (18:19)
[2017-10-15] MEDS ORDERED: NON-FORMULARY MEDICATION 1 EA EA (Omega-3/Dha/Epa/Fish Oil (Fish Oil 1,000 mg Softgel) 2,0 PO SCH (21:00)
[2017-10-15] MEDS ORDERED: SPIRONOLACTONE 25 MG PO SCH (21:00)
[2017-10-15] MEDS ORDERED: ATORVASTATIN 40 MG (LIPITOR) TABLET PO SCH (21:00)
[2017-10-15] MEDS: SPIRONOLACTONE 25 MG (ALDACTONE) TAB PO SCH (21:08)
[2017-10-16] VITALS (10 sets, daily range): BP systolic 84–118; BP diastolic 60–75
[2017-10-16] MEDS: OMEGA 3 (FISH OIL) 1000 MG CAP PO SCH ×2 (06:07→17:31)
[2017-10-16] MEDS: CATHETER FLUSH 10 ML SYR IV SCH ×2 (06:09→13:58)
[2017-10-16 06:53] LABS: BASOPHILS % (AUTO) 0 % (0-10); EOSINOPHILS # (AUTO) 0.3 10^3/uL (0.0-0.3); EOSINOPHILS % (AUTO) 3 % (0-10); HEMATOCRIT 42 % (40-54); HEMOGLOBIN 14.5 G/DL (13.3-17.7); LYMPHOCYTES # (AUTO) 3.2 X 10^3 (1.0-4.0); LYMPHOCYTES % (AUTO) 36 % (12-44); MEAN CORPUSCULAR HEMOGLOBIN 33 PG (25-34); MEAN CORPUSCULAR HGB CONC 35 G/DL (32-36); MEAN CORPUSCULAR VOLUME 94 FL (80-99); MEAN PLATELET VOLUME 10.3 FL (7.4-10.4); MONOCYTES % (AUTO) 11 % (0-12); NEUTROPHILS # (AUTO) 4.5 X 10^3 (1.8-7.8); NEUTROPHILS % (AUTO) 50 % (42-75); PLATELET COUNT 255 10^3/uL (130-400); RED BLOOD COUNT 4.43 10^6/uL (4.35-5.85); RED CELL DISTRIBUTION WIDTH 13.2 % (10.0-14.5); WHITE BLOOD COUNT 8.9 10^3/uL (4.3-11.0)
[2017-10-16 07:30] LABS: ALANINE AMINOTRANSFERASE 28 U/L (0-55); ALBUMIN 3.7 GM/DL (3.2-4.5); ALKALINE PHOSPHATASE 51 U/L (40-136); BILIRUBIN,TOTAL 1.1 MG/DL (0.1-1.0); BUN/CREATININE RATIO 16; CALCIUM 8.8 MG/DL (8.5-10.1); CARBON DIOXIDE 24 MMOL/L (21-32); CHLORIDE 107 MMOL/L (98-107); CHOLESTEROL 153 MG/DL (< 200); CREATININE SERUM 1.14 MG/DL (0.60-1.30); GFR ESTIMATED > 60; GLUCOSE 100 MG/DL (70-105); HDL CHOLESTEROL 41 MG/DL (40-60); POTASSIUM 4.3 MMOL/L (3.6-5.0); SODIUM 140 MMOL/L (135-145); TOTAL PROTEIN 6.2 GM/DL (6.4-8.2); TRIGLYCERIDES 163 MG/DL (<150); VLDL CHOLESTEROL 33 MG/DL (5-40)
[2017-10-16] MEDS ORDERED: UMECLIDINIUM BROMIDE (INCRUSE ELLIPTA) 7'S IH SCH (08:00)
[2017-10-16] MEDS ORDERED: RT-ADVAIR HFA 115/21 MCG PER PUFF IH SCH (08:00)
[2017-10-16] MEDS ORDERED: NON-FORMULARY MEDICATION 1 EA EA (Fluticasone/Vilanterol (Breo Ellipta 100-25 Mcg INH) 1 P INH SCH (09:00)
[2017-10-16] MEDS ORDERED: ASPIRIN E.C. 325 MG (ECOTRIN) TABLET PO SCH (09:00)
[2017-10-16] MEDS ORDERED: MONTELUKAST 10 MG (SINGULAIR) TAB PO SCH (09:00)
[2017-10-16] MEDS ORDERED: NON-FORMULARY MEDICATION 1 EA EA (Montelukast Sodium 10 MG) PO SCH (09:00)
[2017-10-16] MEDS ORDERED: ATENOLOL 25 MG PO SCH (09:00)
[2017-10-16] MEDS ORDERED: LORATADINE (CLARITIN) 10 MG TAB PO SCH (09:00)
[2017-10-16] MEDS ORDERED: lisINopril 10 MG (PRINIVIL) TABLET PO SCH (09:00)
[2017-10-16] MEDS ORDERED: NON-FORMULARY MEDICATION 1 EA EA (Cetirizine HCl (Zyrtec) 10 MG) PO SCH (09:00)
[2017-10-16] MEDS ORDERED: NON-FORMULARY MEDICATION 1 EA EA (Lisinopril 10 MG) PO SCH (09:00)
[2017-10-16] MEDS ORDERED: ASPIRIN E.C. 81 MG (ECOTRIN) TAB PO SCH (09:00)
[2017-10-16] MEDS ORDERED: FUROSEMIDE 40 MG (LASIX) TAB PO SCH (09:00)
[2017-10-16] MEDS ORDERED: ATENOLOL 25 MG (TENORMIN) TAB PO SCH (09:00)
[2017-10-16] MEDS: SPIRONOLACTONE 25 MG (ALDACTONE) TAB PO SCH (09:06)
--- NOTE | 2017-10-16 09:42 | Progress Note (SOAP) ---
Subjective Subjective/Events-last exam Afebrile, feeling okay, denies concerns. Plan for cardiac cath today per Dr. Fishman. Review of Systems Date Seen by Provider: Oct 16, 2017 Time Seen by Provider: 09:20 Objective Exam Last Set of Vital Signs Vital Signs Date Time Temp Pulse Resp B/P (MAP) Pulse Ox O2 Delivery O2 Flow Rate FiO2 10/16/17 08:00 96.0 65 20 118/61 (80) 96 Room Air 10/15/17 14:42 21 Capillary Refill : Less Than 3 Seconds I&O Intake and Output 10/16/17 00:00 Intake Total 1190 ml Balance 1190 ml Intake Oral 1190 ml # Voids 2 Daily Weight Change No General: Alert, No Acute Distress Lungs: Clear to Auscultation, Normal Air Movement Heart: Regular Rate, No Murmurs Abdomen: Normal Bowel Sounds, Soft Extremities: No Edema Neuro: Normal Speech Psych/Mental Status: Mental Status NL Results/Procedures Lab Laboratory Tests 10/15/17 10:00: Urine Color YELLOW, Urine Clarity CLEAR, Urine pH 6, Urine Specific [place] 1.010L, Urine Protein NEGATIVE, Urine Glucose (UA) NEGATIVE, Urine Ketones NEGATIVE, Urine Nitrite NEGATIVE, Urine Bilirubin NEGATIVE, Urine Urobilinogen NORMAL, Urine Leukocyte Esterase NEGATIVE, Urine RBC (Auto) 1+H, Urine RBC 0-2, Urine WBC NONE, Urine Crystals NONE, Urine Bacteria NEGATIVE, Urine Casts NONE, Urine Mucus NEGATIVE, Urine Culture Indicated NO 10/15/17 14:10: Total Creatine Kinase 93, Troponin I < 0.30 10/16/17 05:25: White Blood Count 8.9, Red Blood Count 4.43, Hemoglobin 14.5, Hematocrit 42, Mean Corpuscular Volume 94, Mean Corpuscular Hemoglobin 33, Mean Corpuscular Hemoglobin Concent 35, Red Cell Distribution Width 13.2, Platelet Count 255, Mean Platelet Volume 10.3, Neutrophils (%) (Auto) 50, Lymphocytes (%) (Auto) 36 , Monocytes (%) (Auto) 11, Eosinophils (%) (Auto) 3, Basophils (%) (Auto) 0, Neutrophils # (Auto) 4.5, Lymphocytes # (Auto) 3.2, Monocytes # (Auto) 1.0, Eosinophils # (Auto) 0.3, Basophils # (Auto) 0.0, Sodium Level 140, Potassium Level 4.3, Chloride Level 107, Carbon Dioxide Level 24, Anion Gap 9, Blood Urea Nitrogen 18, Creatinine 1.14, Estimat Glomerular Filtration Rate > 60, BUN/ Creatinine Ratio 16, Glucose Level 100, Calcium Level 8.8, Magnesium Level 2.0, Total Bilirubin 1.1H, Aspartate Amino Transf (AST/SGOT) 22, Alanine Aminotransferase (ALT/SGPT) 28, Alkaline Phosphatase 51, Total Protein 6.2L, Albumin 3.7, Triglycerides Level 163H, Cholesterol Level 153, LDL Cholesterol Direct 83, VLDL Cholesterol 33, HDL Cholesterol 41, Thyroid Stimulating Hormone (TSH) 1.80 Radiology CXR 10/15: No acute process Carotid US 10/15 DRAFT IMPRESSION: 1. No evidence of a hemodynamically significant stenosis. 2. Nonvisualized left vertebral artery. Assessment/Plan Assessment/Plan (1) Dizziness Status: Acute Assessment & Plan: No clear etiology and not truly dizziness but more described as generalized weakness which is now improved. Given his CAD history and ventricular fibrillation history, admitted for observation on telemetry. Consult Dr. Fishman. 10/16- no events overnight, plan for cardiac cath today (2) Coronary artery disease Status: Acute Assessment & Plan: Consult Cardiology as noted above. Qualifiers: Qualified Codes: I25.10 - Atherosclerotic heart disease of [place] coronary artery without angina pectoris (3) History of DVT (deep vein thrombosis) Status: Chronic Assessment & Plan: On coumadin with therapeutic INR (4) Elevated bilirubin Status: Acute Assessment & Plan: Unclear etiology, will check hepatitis panel Clinical Quality Measures DVT/VTE Risk/Contraindication: Risk Factor Score Per Nursin RFS Level Per Nursing on Admit: 4+=Very High GERONIMO ROTHMAN MD Oct 16, 2017 9:41 am
[2017-10-16] MEDS ORDERED: HEParin (CATH LAB) 2,000 ML IV ONE (10:49)
[2017-10-16] MEDS ORDERED: fentaNYL INJECTION 100 MCG/2 ML AMP ONE (11:55)
[2017-10-16] MEDS ORDERED: diphenhydrAMINE 50 MG/ML INJ (BENADRYL) ONE (11:55)
[2017-10-16] MEDS ORDERED: LIDOCAINE 1% INJ 50 ML (XYLOCAINE) VIAL ONE (11:55)
[2017-10-16] MEDS ORDERED: MIDAZOLAM 5 MG/5 ML (VERSED) VIAL ONE (11:55)
--- NOTE | 2017-10-16 12:10 | Cardiac Procedure Note-CS/ASA ---
Pre-Procedure Note Pre-Op Procedure Note H&P Reviewed The H&P was reviewed, patient examined and no changes noted. Date H&P Reviewed: Oct 16, 2017 Time H&P Reviewed: 12:10 Conscious Sedation Pre-Proced Time Reviewed: 12:10 ASA Class: 3 Airway Mallampati Classification: ([place] appropriate class) I. II. III, IV Lungs Heart ASA score ASA 1: a normal healthy patient ASA 2: a patient with a mild systemic disease (mid diabetes, controlled hypertension, obesity ASA 3: a patient with a severe systemic disease that limits activity (angina , COPD, prior Myocardial infarction) ASA 4: a patient with an incapacitating disease that is a constant threat to life (CHF, renal failure) ASA 5: a moribund patient not expected to survive 24 hrs. (ruptured aneurysm) ASA 6: a declared brain patient whose organs are being harvested. For emergent operations, add the letter E after the classification Grade 2 Sedation Plan: Analgesia, Amnesia, Plan communicated to team members, Discussed options with patient/fam, Discussed risks with patient/fam Note The patient is an appropriate candidate to undergo the planned procedure, sedation, and anesthesia. The patient immediately re-assessed prior to indication. JAEL ASHER MD FACP FAC CCDS Oct 16, 2017 12:10
[2017-10-16] MEDS ORDERED: NS IV 1000 ML 1,000 ML ONE (12:15)
--- NOTE | 2017-10-16 13:12 | Progress Note-Cardiology ---
Cardiology SOAP Progress Note Subjective: Had some dizziness when getting out of bed this am. No syncope or presyncope. No cp. Chronic mod shortness of breath, unchanged Objective: I&O/Vital Signs 10/16/17 10/16/17 10/16/17 10/16/17 04:00 07:00 08:00 10:19 Temp 98.8 96.0 Pulse 58 61 65 Resp 16 20 B/P (MAP) 118/68 (85) 118/61 (80) Pulse Ox 93 96 94 O2 Delivery Room Air Room Air Room Air 10/16/17 00:00 Intake Total 1190 ml Balance 1190 ml Weight (Pounds): 239 Weight (Ounces): 6.0 Weight (Calculated Kilograms): 108.830855 Constitutional: AAO x 3, well-developed, well-nourished Respiratory: No accessory muscle use; other (fair bilat air entry; increase exp phase; some exp wheezes; air entry somewhat diminished at the bses) Cardiovascular: regular rate-rhythm, S1 and S2, systolic murmur (faint LAURYN at card base) Gastrointestional: No tender; soft; No guarding, No rebound; audible bowel sounds Extremities: No clubbing, No cyanosis, No significant edema Neurologic/Psychiatric: oriented x 3, grossly intact, power is 5/5 both on sides Skin: No rash on exposed areas, No ulcerations on exposed areas Results/Procedures: Labs Laboratory Tests 10/15/17 14:10: Total Creatine Kinase 93, Troponin I < 0.30 10/16/17 05:25: White Blood Count 8.9, Red Blood Count 4.43, Hemoglobin 14.5, Hematocrit 42, Mean Corpuscular Volume 94, Mean Corpuscular Hemoglobin 33, Mean Corpuscular Hemoglobin Concent 35, Red Cell Distribution Width 13.2, Platelet Count 255, Mean Platelet Volume 10.3, Neutrophils (%) (Auto) 50, Lymphocytes (%) (Auto) 36 , Monocytes (%) (Auto) 11, Eosinophils (%) (Auto) 3, Basophils (%) (Auto) 0, Neutrophils # (Auto) 4.5, Lymphocytes # (Auto) 3.2, Monocytes # (Auto) 1.0, Eosinophils # (Auto) 0.3, Basophils # (Auto) 0.0, Sodium Level 140, Potassium Level 4.3, Chloride Level 107, Carbon Dioxide Level 24, Anion Gap 9, Blood Urea Nitrogen 18, Creatinine 1.14, Estimat Glomerular Filtration Rate > 60, BUN/ Creatinine Ratio 16, Glucose Level 100, Calcium Level 8.8, Magnesium Level 2.0, Total Bilirubin 1.1H, Aspartate Amino Transf (AST/SGOT) 22, Alanine Aminotransferase (ALT/SGPT) 28, Alkaline Phosphatase 51, Total Protein 6.2L, Albumin 3.7, Triglycerides Level 163H, Cholesterol Level 153, LDL Cholesterol Direct 83, VLDL Cholesterol 33, HDL Cholesterol 41, Thyroid Stimulating Hormone (TSH) 1.80 Laboratory Tests 10/15/17 08:20 10/16/17 05:25 A/P: Assessment: Episode of dizziness on 10/15/17, likely related to postural hypotension Coronary artery disease with a history of stenting of the left circumflex artery with a 4.5x20mm Liberte bare metal stent. Subsequently, in August 2012, the patient received Promus element 3.5 x 16 mm stent to the left circumflex. Last card cath of 10/16/17 showed patent LCx stents; posterobasal and diaphragmatic hypokinesis; LVEDP 6 mmHg; LVEF 45-50% Chronic exertional dyspnea, probably related to COPD due to tobacco use, for which he is following with Dr. Gallegos H/o deep venous thrombosis resulting in large saddle pulmonary embolism from which he has made a good clinical recovery. This was in Jan 2013. He was treated at [facility] in [place], [place]. He was treated with oral anticoag and placement of an IVC filter. He remains on oral warfarin which is followed by his PCP MPI of 12-07-15 shows inferolateral myocardial infarction without significant ischemia. Inferolateral akinesis. 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 Hypertension, controlled Tobaccoism from which he has been advised to refrain Generalized fatigue and malaise of undetermined etiology, unchanged CKD stage 2 Gilbert's syndrome being followed by his PCP Segmental pressures of August 2016 showed no evidence of any significant obstructive arterial disease involving the lower limbs Plan: * We discussed further card w/u this am. He agreed to cath after we discussed rationale, procedure, risks, benefits, potential complications, and alternatives. Card cath was done and is summarized above * Based on clinical symptoms and cath findings, symptoms appear to be due to postural hypotension * We recommend further hydration and reduction of diuretics and bp meds * We recommend close clinical f/u for now * We have advised complete avoidance of tobacco use JAEL ASHER MD FACP FAC CCDS Oct 16, 2017 13:12
--- NOTE | 2017-10-16 13:13 | CARDIAC CATHETERIZATION ---
DATE OF SERVICE: 10/16/2017 ADDENDUM Date of procedure is 10/16/2017. Job ID: [id number] DocumentID: [id number] Dictated Date: 10/16/2017 13:01:34 Casting Chipper Date: 10/16/2017 13:12:54 Dictated By: JAEL ASHER MD, MA, FACP, FACC,
--- NOTE | 2017-10-16 13:17 | CARDIAC CATHETERIZATION ---
DATE OF SERVICE: 10/16/2017 CARDIAC CATHETERIZATION REPORT The patient is a 62-year-old man, who is known to have coronary artery disease, who was admitted with dizziness and near syncope on 10/15/2017. Given his coronary artery disease, cardiac dysrhythmia was a concern. Telemetry did not show any significant dysrhythmia. Cardiac catheterization was carried out to evaluate his known coronary artery disease and ischemic cardiomyopathy. DESCRIPTION OF PROCEDURE: He was brought to the cardiac catheterization laboratory in a fasting state. Right groin was prepared and draped in usual sterile fashion. Lidocaine 1% was used for local anesthesia. Modified Seldinger technique was used to advance a 5-Irish sheath in right femoral artery. A 5-Irish JL4 catheter was used for left coronary angiography. A 5-Irish JR4 catheter was used for right coronary angiography. A 5-Irish pigtail catheter was used for left heart catheterization and left ventricular angiography. Following completion of the diagnostic procedure and removal of the diagnostic catheters, angiography of the right femoral artery was carried out through the sheath and Mynx was used to achieve hemostasis. He tolerated the procedure well. HEMODYNAMICS: The left ventricular end-diastolic pressure following coronary angiography was 6 mmHg. There was no significant pressure gradient on pullback across the aortic valve. Ascending aortic pressure was 96/54 with a mean of 69 mmHg. LEFT VENTRICULAR ANGIOGRAPHY: Left ventricular angiography was carried out in the right anterior oblique projection. Global left ventricular systolic function is mildly impaired. Left ventricular ejection fraction is 45% to 50%. There is diaphragmatic and posterobasal hypokinesis. There does not appear to be significant mitral regurgitation. CORONARY ANGIOGRAPHY: Left main coronary artery is free of significant disease. Left anterior descending artery is free of significant disease. Left circumflex artery has a widely patent stented segment in its proximal portion. These are known to be a 4.5 x 20 mm bare metal and a 3.5 x 16 drug-eluting (Promus element) stents deployed several years ago. There is mild plaque in the coronary arteries. Right coronary artery is small and nondominant. It does not exhibit significant stenosis. CONCLUSIONS: 1. Mild coronary artery disease. 2. Widely patent stented segment within the left circumflex artery. The patient has a history of a 4.5 x 20 mm Liberte bare metal stent and the Promus element 3.5 x 16 mm drug-eluting stent in this artery. 3. Mild impairment of global left ventricular systolic function with posterobasal and diaphragmatic hypokinesis and left ventricular ejection fraction 45% to 50%. 4. No significant mitral regurgitation. DISCUSSION AND RECOMMENDATIONS: Based on results of the study, it appears appropriate to continue a conservative approach. Risk factor modification has been reviewed. Outpatient followup is advised. Job ID: [id number] DocumentID: [id number] Dictated Date: 10/16/2017 13:00:26 Char Filter Tank Tender Date: 10/16/2017 13:15:51 Dictated By: JAEL ASHER MD, MA, FACP, FACC, MTDD
[2017-10-16] MEDS ORDERED: NS IV 1000 ML 1,000 ML IV SCH (13:27)
[2017-10-16] MEDS ORDERED: PATIENT MAY USE OWN MEDS, ALL PO SCH (13:30)
[2017-10-16] MEDS: warFARin 5 MG (COUMADIN) TAB PO SCH (18:13)
[2017-10-17 06:39] LABS: HEPATITIS C ANTIBODY C Non-Reactive (Non-Reactive)
--- NOTE | 2017-10-17 13:44 | Discharge Summary ---
Diagnosis/Chief Complaint Date of Admission Oct 15, 2017 at 12:12 Date of Discharge Oct 16, 2017 at 18:15 Admission Diagnosis Admission Diagnosis 1) Dizziness (2) Coronary artery disease (3) History of DVT (deep vein thrombosis) Discharge Diagnosis (1) Dizziness Status: Acute Assessment & Plan: No clear etiology and not truly dizziness but more described as generalized weakness which is now improved. Given his CAD history and ventricular fibrillation history, admitted for observation on telemetry. Consult Dr. Fishman. 10/16- no events overnight, had cardiac cath which showed mild CAD and patent stent in left circumflex, EF 45-50%. Echo with hypokinesis basalinferolateral. Per Dr. Fishman, decreased by half his atenolol, furosemide, lisinopril and spironolactone. (2) Coronary artery disease Status: Acute Assessment & Plan: Consult Cardiology as noted above. Qualifiers: Qualified Codes: I25.10 - Atherosclerotic heart disease of picayune coronary artery without angina pectoris (3) History of DVT (deep vein thrombosis) Status: Chronic Assessment & Plan: On coumadin with therapeutic INR (4) Elevated bilirubin Status: Acute Assessment & Plan: Unclear etiology, hepatitis panel pending at d/c. Chief Complaint/HPI Chief Complaint/HPI 62 yo male presented to ER after an episode at work this morning. 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 He then went to his cubicle and sat for about 15 minutes. When he got up the next time he walked a brief period and then suddenly fell down to one knee almost as if he "stopped working". He had no chest pain or palpitations and denies feeling that his knee gave out. He did not lose consciousness and immediately stood back up, straightened the shelves and went back to sit. He felt weak all over afterward. He denies worsening shortness of breath (reports some at baseline with mild COPD/asthma). He had a sore throat and completed antibiotics about a week ago but has not had any other illness. He does have a history of stents in his heart, sudden cardiac and DVT for which he has an IVC and takes coumadin. Discharge Summary-Simple/Stand Procedures Cardiac catheterization Consultations Dr. Fishman/Cardiology Discharge Physical Examination Allergies: Coded Allergies: No Known Drug Allergies (Unverified , 10/15/17) Vitals & I&Os Vital Sign - Last 12Hours Date Time Temp Pulse Resp B/P (MAP) Pulse Ox O2 Delivery O2 Flow Rate FiO2 10/16/17 15:56 97.7 62 18 100/70 (80) 97 Room Air 10/16/17 14:25 2.00 10/15/17 14:42 21 Intake and Output 10/17/17 00:00 Intake Total 1110 ml Balance 1110 ml Hospital Course See final discharge diagnosis. Radiology Reviewed CXR 10/15: No acute process Carotid US 10/15 DRAFT IMPRESSION: 1. No evidence of a hemodynamically significant stenosis. 2. Nonvisualized left vertebral artery. Discharge Instructions to patient/family Please see electronic discharge instructions given to patient. Discharge Medications Reviewed and agree with Discharge Medication list on patient's Discharge Instruction sheet Clinical Quality Measures DVT/VTE Risk/Contraindication: Risk Factor Score Per Nursin RFS Level Per Nursing on Admit: 4+=Very High Copy Copies To 1: ANTHONY HAQ MD, BETHANY N MD Oct 17, 2017 13:44
[2017-10-17] MEDS ORDERED: warFARin 5 MG (COUMADIN) TAB PO SCH (18:00)
== END 2017-10-16 18:15 | disposition home or self-care (01) ==
LOC: EDUNIT# 07:49 → ER 07:51 → UNDOADMOB 12:12 → 4TH 12:12 → UNDOADMOB 13:00 → CATH 13:00 → UNDODISOB 10-16 18:15 → CATH 10-16 18:15
PROVIDERS: ATTEND Family Medicine
DX: I25.10 Atherosclerotic heart disease of native coronary artery without angina pectoris (principal); I25.5 Ischemic cardiomyopathy; Z86.718 Personal history of other venous thrombosis and embolism; I50.22 Chronic systolic (congestive) heart failure; E78.5 Hyperlipidemia, unspecified; I12.9 Hypertensive chronic kidney disease with stage 1 through stage 4 chronic kidney disease, or unspecified chronic kidney disease; F17.210 Nicotine dependence, cigarettes, uncomplicated; R53.1 Weakness; R53.81 Other malaise; E80.4 Gilbert syndrome; N18.2 Chronic kidney disease, stage 2 (mild); R06.09 Other forms of dyspnea; I25.2 Old myocardial infarction; Z95.5 Presence of coronary angioplasty implant and graft; Z79.01 Long term (current) use of anticoagulants
CPT/HCPCS: 36415; 71045; 80053; 80061; 80074; 80320; 81000; 82550; 83735; 83874; 84443; 84484; 85025; 85610; 85730; 93005; 93041; 93306; 93458; 93880; 94640; 94760; 96360; G0378

== ENCOUNTER 2017-12-06 11:09 | Emergency (ER) | payer BC ==
[~2017-12-06] VITALS: Ht 182.9 cm; Wt 112.5 kg
[~2017-12-06 11:09] MED LIST changes: +ASPI-983 PO; +ATOR40TA70 PO; +CETI10TA20 PO; +FLUT1AER INH; +FURO40TA4 PO; +LISI10TA2 PO; +MONT10TA24 PO; +OMEG-160 PO; +RT-ALBUINH IH; +UMEC62.5 INH; +WARF-48 PO; +[UNRECOGNIZED DRUG - CODE] NS
--- OUTSIDE RECORDS SUMMARY | 2017-12-06 11:16 | XMS REPORT ---
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 Active 442830883070689 Problem Arteriosclerotic coronary artery disease I25.10 Active 190546291554518 Problem Blood thinned due to long-term anticoagulant use Z79.01 Active 848152103 Problem History of pulmonary embolus (PE) Z86.711 Active 581456402 ALLERGIES No Known Allergies ENCOUNTERS Encounter Location Date Diagnosis [place] [id number] [place] [address] 72361- 9357 Sep, [place] [address] [place] [id number] [place] [address] 11190- 6629 Sep, Saddle embolus of pulmonary artery with acute cor pulmonale I26.02 ; Blood thinned due to long-term anticoagulant use Z79.01 and Arteriosclerotic coronary artery disease I25.10 [place] [id number] [place] [address] 86824- 4276 Sep, [place] [address] [place] [id number] [place] [address] 80504- 2862 Sep, Sore throat J02.9 [place] [address] [place] [id number] [place] [address] 23973- 8604 Aug, Saddle embolus of pulmonary artery with acute cor pulmonale I26.02 [place] [id number] [place] [address] 96323- 0050 Jul, Saddle embolus of pulmonary artery with acute cor pulmonale I26.02 ; Blood thinned due to long-term anticoagulant use Z79.01 and Arteriosclerotic coronary artery disease I25.10 [facility] [id number] [place] [address] 52615- 2626 Jun, Saddle embolus of pulmonary artery with acute cor pulmonale I26.02 [facility] [id number] [place] [address] 59236- 0819 Jun, 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 [facility] [id number] [place] [address] 79825- 5804 May, Saddle embolus of pulmonary artery with acute cor pulmonale I26.02 [place] [address] [place] [id number] [place] [address] 90513- 5851 16 Apr, 2017 Saddle embolus of pulmonary artery with acute cor pulmonale I26.02 [place] [address] [place] [address] [id number] [place] [address] 29307- 7779 15 Mar, 2017 Saddle embolus of pulmonary artery with acute cor pulmonale I26.02 [facility] [address] [id number] [place] [address] [id number] Mar, Dental caries K02.9 [facility] [address] [place] [id number] [place] [address] [id number] Jan, Dental examination Z01.20 [facility] [id number] [place] [address] 86905- 2007 Jan, Saddle embolus of pulmonary artery with acute cor pulmonale I26.02 ; Blood thinned due to long-term anticoagulant use Z79.01 and Arteriosclerotic coronary artery disease I25.10 [facility] [address] [place] [id number] [place] [address] 73483- 4364 Dec, Saddle embolus of pulmonary artery with acute cor pulmonale I26.02 [place] [id number] [place] [address] 58950- 0606 Nov, Saddle embolus of pulmonary artery with acute cor pulmonale I26.02 [facility] [address] [address] 1549 October, [facility] [id number] [place] [address] 85270- 8252 October, Saddle embolus of pulmonary artery with acute cor pulmonale I26.02 [facility] [id number] [place] [address] 57108- 8930 Sep, Saddle embolus of pulmonary artery with acute cor pulmonale I26.02 [facility] [address] [place] [address] [id number] Aug, Dental examination Z01.20 [facility] [address] [place] [id number] [place] [address] 94548- 6154 Aug, Saddle embolus of pulmonary artery with acute cor pulmonale I26.02 [facility] [address] [place] [id number] [place] [address] 50953- 9289 Aug, Saddle embolus of pulmonary artery with acute cor pulmonale I26.02 [facility] [address] [place] [id number] [place] [address] 87467- 9312 Jul, Saddle embolus of pulmonary artery with acute cor pulmonale I26.02 [facility] [id number] [place] [address] 94983- 1153 Jun, 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 [facility] [id number] [place] [address] 74738- 0707 May, Blood thinned due to long-term anticoagulant use Z79.01 [facility] [address] [place] [address] 65611- 7448 04 May, 2016 Saddle embolus of pulmonary artery with acute cor pulmonale I26.02 and Arteriosclerotic coronary artery disease I25.10 [facility] [address] [place] [address] 09574- 4138 Apr, Saddle embolus of pulmonary artery with acute cor pulmonale I26.02 [place] [id number] [place] [address] 80051- 2604 09 Mar, 2016 Saddle embolus of pulmonary artery with acute cor pulmonale I26.02 [place] [address] [address]- 3254 Jan, [place] [address] [place] [id number] [place] [address] 39588- 6480 Jan, Encounter for immunization Z23 and History of pulmonary embolus (PE) Z86.711 [place] [address] [place] [id number] [place] [address] 14741- 2126 Jan, [place] [address] [place] [id number] [place] [address] 02627- 7938 Jan, Saddle embolus of pulmonary artery with acute cor pulmonale I26.02 [place] [address] [place] [address] 45196- 5481 Jan, Saddle embolus of pulmonary artery with acute cor pulmonale I26.02 [place] [address] [address]- 1896 Dec, Blood thinned due to long-term anticoagulant use Z79.01 and History of pulmonary embolus (PE) Z86.711 [place] [address] [address]- 9658 Nov, Blood thinned due to long-term anticoagulant use Z79.01 and History of pulmonary embolus (PE) Z86.711 [place] [address] [address]- 4132 October, Blood thinned due to long-term anticoagulant use Z79.01 [place] [address] [address]- 1391 Sep, History of pulmonary embolus (PE) Z86.711 [place] [address] [place] [id number] [place] [address] 64908- 3400 11 Oct, 2015 [place] [address] 19499- 4572 08 Oct, 2015 Saddle embolus of pulmonary artery 415.13 ; Abnormal blood chemistry 790.6 and Hyperlipidemia E78.5 [place] [address] 35330- 6323 14 Aug, 2015 Saddle embolus of pulmonary artery 415.13 and Abnormal blood chemistry 790.6 [place] [address] 38839- 8384 10 Aug, 2015 Saddle embolus of pulmonary artery 415.13 and Abnormal blood chemistry 790.6 [place] [address] 49522- 5965 Jul, Saddle embolus of pulmonary artery 415.13 and Abnormal blood chemistry 790.6 [place] [address] 78355- 4204 Jun, Saddle embolus of pulmonary artery 415.13 and Abnormal blood chemistry 790.6 [place] [address] [place] [id number] [place] [address] 74084- 3560 May, Saddle embolus of pulmonary artery 415.13 and Abnormal blood chemistry 790.6 [place] [address] [place] [id number] [place] [address] 28651- 7053 Apr, Visual field defect H53.40 [place] [id number] [place] [address] 49958- 9184 Apr, Flu vaccine need Z23 [address] 91902- 1094 Apr, Saddle embolus of pulmonary artery 415.13 and Abnormal blood chemistry 790.6 [place] [address] 43512- 7158 Mar, Saddle embolus of pulmonary artery 415.13 and Abnormal blood chemistry 790.6 [facility] [address] [place] [address] 10006- 3976 Jan, Saddle embolus of pulmonary artery 415.13 and Abnormal blood chemistry 790.6 [facility] [address] [place] [id number] [place] [address] 03075- 5141 10 Dec, 2014 Saddle embolus of pulmonary artery 415.13 and Abnormal blood chemistry 790.6 [facility] [address] [place] [id number] [place] [address] 07752- 3896 Nov, [facility] [address] [place] [id number] [place] [address] 50352- 4602 Nov, Headache 784.0 [facility] [address] [place] [id number] [place] [address] 62670- 5974 Nov, [facility] [address] [place] [id number] [place] [address] 05824- 9398 Nov, Saddle embolus of pulmonary artery 415.13 and Abnormal blood chemistry 790.6 [facility] [address] [place] [id number] [place] [address] 09400- 3680 Nov, [facility] [address] [place] [id number] [place] [address] 08868- 1035 Nov, Saddle embolus of pulmonary artery 415.13 and Abnormal blood chemistry 790.6 [facility] [address] [place] [id number] [place] [address] 46994- 7607 October, Abnormal blood chemistry 790.6 and Saddle embolus of pulmonary artery 415.13 [facility] [address] [place] [address] 24403- 6123 14 Sep, 2014 [facility] [address] [place] [id number] [place] [address] 58784- 9635 Sep, [facility] [address] [place] [address] [id number] [place] [address] 61552- 6214 Aug, [facility] [place] [facility] [address] [id number] [place] [address]- 6432 10 Aug, 2014 [facility] [place] [facility] [address] [id number] [place] [address]- 0693 Aug, [facility] [place] [facility] [address] [id number] [place] [address]- 4109 Aug, [facility] [place] [facility] [address] [id number] [place] [address]- 7974 Aug, [facility] [place] [facility] [address] [id number] [place] [address]- 6809 Aug, [facility] [place] [facility] [address] [id number] [place] [address]- 1296 Jul, [facility] [place] [facility] [address] [id number] [place] [address]- 2017 Jul, [facility] [place] [facility] [address] [id number] [place] [address]- 8644 Jun, [facility] [place] [facility] [address] [id number] [place] [address]- 8712 Jun, [facility] [place] [facility] [address] [id number] [place] [address]- 0033 May, [facility] [place] [facility] [address] [id number] [place] [address]- 4602 May, [facility] [place] [facility] [address] [id number] [address]- 8370 Apr, [facility] [place] [facility] [address] [id number] [place] [address]- 5798 Apr, [facility] [place] [facility] [address] [id number] [place] [address]- 5130 Mar, [facility] [place] [facility] [address] [id number] [place] [address]- 4077 Mar, [facility] [place] [facility] [address] [id number] [address]- 5176 15 Mar, 2014 [facility] [place] [facility] [address] [id number] [place] [address]- 6699 15 Mar, 2014 [facility] [place] [facility] [address] [id number] [place] [address]- 1941 05 Mar, 2014 [facility] [place] [facility] [address] [id number] [place] [address]- 8415 05 Mar, 2014 [facility] [place] [facility] [address] [id number] [place] [address]- 1477 Mar, [facility] [place] [facility] [address] [id number] [place] [address]- 3609 Mar, [facility] [place] [facility] [address] [id number] [place] [address]- 5688 Jan, [facility] [place] [facility] [address] [id number] [place] [address]- 2346 Jan, [facility] [place] [facility] [address] [id number] [place] [address]- 4561 Jan, [facility] [place] [facility] [address] [id number] [place] [address]- 9998 Jan, [facility] [place] [facility] [address] [id number] [place] [address]- 8085 Dec, [facility] [place] [facility] [address] [id number] [place] [address]- 2508 Dec, [facility] [place] [facility] [address] [id number] [place] [address]- 7929 Dec, [facility] [place] [facility] [address] [id number] [place] [address]- 2975 Dec, [facility] [place] [facility] [address] [id number] [place] [address]- 2120 Dec, [facility] [place] [facility] [address] [id number] [place] [address]- 9595 Dec, [facility] [place] [facility] [address] [id number] [place] [address] 254 Dec, 2013 [facility] [place] [facility] [address] [id number] [place] [address]- 6081 Dec, [facility] [place] [facility] [address] [id number] [place] [address]- 2546 Dec, [facility] [place] [facility] [address] [id number] [place] [address]- 4422 Dec, [facility] [place] [facility] [address] [id number] [place] [address]- 7104 Dec, [facility] [place] [facility] [address] [id number] [place] [address]- 6160 Dec, [facility] [place] [facility] [address] [id number] [place] [address]- 0980 Nov, [facility] [place] [facility] [address] [id number] [place] [address]- 1214 Nov, [facility] [place] [facility] [address] [id number] [place] [address]- 1649 October, [facility] [place] [facility] [address] [id number] [place] [address]- 9482 October, [facility] [place] [facility] [address] [id number] [place] [address]- 3851 Sep, [facility] [place] [facility] [address] [id number] [place] [address]- 2618 Sep, [facility] [place] [facility] [address] [id number] [place] [address]- 2542 Aug, [facility] [place] [facility] [address] [id number] [place] [address]- 4006 Aug, [facility] [place] [facility] [address] [id number] [place] [address]- 2546 Aug, [facility] [place] [facility] [address] [id number] [place] [address]- 9383 Aug, [facility] [place] [facility] [address] [id number] [place] [address]- 7530 Aug, [facility] [place] [facility] [address] [id number] [place] [address]- 5539 Aug, [facility] [place] [facility] [address] [id number] [place] [address]- 1564 Aug, [facility] [place] [facility] [address] [id number] [place] [address]- 7507 Aug, [facility] [place] [facility] [address] [id number] [place] [address]- 7668 Aug, [facility] [place] [facility] [address] [id number] [place] [address]- 3536 Aug, [facility] [place] [facility] [address] [id number] [place] [address]- 3820 Aug, [facility] [place] [facility] [address] [id number] [place] [address]- 3675 Aug, [facility] [place] [facility] [address] [id number] [place] [address]- 1589 Aug, [facility] [place] [facility] [address] [id number] [place] [address]- 7994 Aug, [facility] [place] [facility] [address] [id number] [place] [address]- 5307 Jul, [facility] [place] [facility] [address] [id number] [place] [address]- 2944 Jul, [facility] [place] [facility] [address] [id number] [place] [address]- 4976 Jul, [facility] [place] [facility] [address] [id number] [place] [address]- 7589 Jul, [facility] [place] [facility] [address] [id number] [place] [address]- 6395 Jul, [facility] [place] [facility] [address] [id number] [place] [address]- 5611 Jun, [facility] [address] [id number] [place] [address]- 1551 Jun, [facility] [place] [facility] [address] [id number] [place] [address]- 2546 Jun, [facility] [place] [facility] [address] [id number] [place] [address]- 4161 Jun, [facility] [place] [facility] [address] [id number] [place] [address]- 6138 May, [facility] [place] [facility] [address] [id number] [place] [address]- 3850 May, [facility] [place] [facility] [address] [id number] [place] [address]- 7326 May, [facility] [place] [facility] [address] [id number] [place] [address]- 2640 May, [facility] [address] [id number] [place] [address]- 1797 Apr, [facility] [place] [facility] [address] [id number] [place] [address]- 6071 Mar, [facility] [place] [facility] [address] [id number] [place] [address]- 1411 Jan, [facility] [place] [facility] [address] [id number] [place] [address]- 9764 Jan, [facility] [place] [facility] [address] [id number] [place] [address]- 2772 Jan, [facility] [place] [facility] [address] [id number] [place] [address]- 1276 Jan, [facility] [place] [facility] [address] [id number] [place] [address]- 2546 October, [facility] [place] [facility] [address] [id number] [place] [address]- 4347 Aug, [facility] [id number] [address]- 4587 Aug, [facility] [address] [address]- 2604 Apr, [facility] [address] [address]- 0359 Apr, [facility] [address] [address]- 0094 May, [facility] [address] [address]- 8504 May, [facility] [id number] [place] [address] 45531- 9271 May, [facility] [id number] [address]- 9199 Apr, [facility] [address] [address]- 6904 Jul, [facility] [address] [address]- 6431 Jun, IMMUNIZATIONS No Known Immunizations SOCIAL HISTORY Never Assessed REASON FOR VISIT TE PLAN OF CARE Activity Details Follow Up prn Reason:hygiene VITAL SIGNS Blood pressure systolic 136 mmHg 2017-03-02 Blood pressure diastolic 66 mmHg 2017-03-02 MEDICATIONS Medication Instructions Dosage Frequency Start Date End Date Duration Status ProAir RespiClick 108 (90 Base) MCG/ACT Inhalation every 4 hrs 1 puff as needed 4h Active ZyrTEC Active Spironolactone Active Warfarin Sodium 5MG TAKE 1 TABLET BY MOUTH SUNDAY, SUNDAY, SUNDAY. TAKE 1 AND 1/2 TABLETS BY MOUTH DAILY ON SUNDAY, SUNDAY, SUNDAY, AND SUNDAY Active Incruse Ellipta Active Lipitor 40 MG Orally Once a day 1 tablet 24h Active Neurontin 300 MG Orally Three times a day 1 capsule 8h Nov, Active Atenolol Active Singulair Active Aspirin Active Fish Oil Concentrate 1000 MG Orally 2 times a day 2 capsules 12h Active Furosemide Active Breo Ellipta 100-25 MCG/INH Inhalation Once a day 1 puff 24h Active Fioricet 50-300-40 MG Orally every 4 hrs 1 capsule as needed 4h Nov, Active Lisinopril 10 MG Orally Once a day 1 tablet 24h Active RESULTS No Results PROCEDURES Procedure Date Ordered Result Body Site EXTRAC ERUPTED TOOTH/EXPOSED ROOT Mar 02, 2017 INSTRUCTIONS MEDICATIONS ADMINISTERED No Known Medications MEDICAL (GENERAL) HISTORY Type Description Date Medical History cardiovascular disorder-DC on 05/23/10 with stent x 1 Medical History hypertension Medical History hyperlipidemia Medical History respiratory disorder- Saddle PE 02/05/13 (Dr. Winn) Medical History hematologic disorder-DVT 02/03/13 ([facility]) Surgical History back surgery Surgical History angioplasty-stent x 2 05/2010 Surgical History abdominal surgery-Venacava filter placed 01/2013 Hospitalization History DVT that lead to a saddle PE. Was shipped to [facility] in [place], [place]. 01/2013
--- OUTSIDE RECORDS SUMMARY | 2017-12-06 11:17 | XMS REPORT ---
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 Active [id number] Problem Arteriosclerotic coronary artery disease I25.10 Active 720226357263193 Problem Blood thinned due to long-term anticoagulant use Z79.01 Active 644082946 Problem History of pulmonary embolus (PE) Z86.711 Active [id number] ALLERGIES No Known Allergies ENCOUNTERS Encounter Location Date Diagnosis [place] [id number] [place] [address] 52868- 5661 Sep, [place] [address] [place] [id number] [place] [address] 85352- 9886 Sep, Saddle embolus of pulmonary artery with acute cor pulmonale I26.02 ; Blood thinned due to long-term anticoagulant use Z79.01 and Arteriosclerotic coronary artery disease I25.10 [place] [id number] [place] [address] 71191- 7907 Sep, [place] [address] [place] [id number] [place] [address] 55449- 0026 Sep, Sore throat J02.9 [place] [address] [place] [id number] [place] [address] 72193- 9169 Aug, Saddle embolus of pulmonary artery with acute cor pulmonale I26.02 [place] [address] [place] [address] 00389- 6411 Jul, Saddle embolus of pulmonary artery with acute cor pulmonale I26.02 ; Blood thinned due to long-term anticoagulant use Z79.01 and Arteriosclerotic coronary artery disease I25.10 [facility] [address] [place] [address] 75670- 1359 Jun, Saddle embolus of pulmonary artery with acute cor pulmonale I26.02 [facility] [id number] [place] [address] 04619- 9445 Jun, 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 [facility] [id number] [place] [address] 62161- 6319 May, Saddle embolus of pulmonary artery with acute cor pulmonale I26.02 [place] [address] [place] [id number] [place] [address] 44173- 5871 16 Apr, 2017 Saddle embolus of pulmonary artery with acute cor pulmonale I26.02 [place] [address] [place] [id number] [place] [address] 64915- 5821 15 Mar, 2017 Saddle embolus of pulmonary artery with acute cor pulmonale I26.02 [facility] [id number] [place] [address] [id number] Mar, Dental caries K02.9 [facility] [address] [address] [id number] [place] [address] [id number] Jan, Dental examination Z01.20 [facility] [id number] [place] [address] 95276- 9425 Jan, Saddle embolus of pulmonary artery with acute cor pulmonale I26.02 ; Blood thinned due to long-term anticoagulant use Z79.01 and Arteriosclerotic coronary artery disease I25.10 [facility] [address] [place] [id number] [place] [address] 60768- 4209 Dec, Saddle embolus of pulmonary artery with acute cor pulmonale I26.02 [place] [address] [place] [address] 96295- 5370 Nov, Saddle embolus of pulmonary artery with acute cor pulmonale I26.02 [facility] [address] [address] 8823 October, [facility] [id number] [place] [address] 05512- 2505 October, Saddle embolus of pulmonary artery with acute cor pulmonale I26.02 [facility] [id number] [place] [address] 85123- 2657 Sep, Saddle embolus of pulmonary artery with acute cor pulmonale I26.02 [facility] [address] [place] [address] [id number] Aug, Dental examination Z01.20 [facility] [address] [place] [id number] [place] [address] 01324- 8765 Aug, Saddle embolus of pulmonary artery with acute cor pulmonale I26.02 [facility] [address] [place] [address] [id number] [place] [address] 83386- 7916 Aug, Saddle embolus of pulmonary artery with acute cor pulmonale I26.02 [facility] [address] [place] [id number] [place] [address] 64910- 2452 Jul, Saddle embolus of pulmonary artery with acute cor pulmonale I26.02 [facility] [id number] [place] [address] 00407- 1935 Jun, 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 [facility] [address] [place] [address] 13424- 9376 May, Blood thinned due to long-term anticoagulant use Z79.01 [facility] [address] [place] [address] 44374- 3678 04 May, 2016 Saddle embolus of pulmonary artery with acute cor pulmonale I26.02 and Arteriosclerotic coronary artery disease I25.10 [facility] [address] [place] [address] 44800- 0834 Apr, Saddle embolus of pulmonary artery with acute cor pulmonale I26.02 [place] [address] [place] [address] 03950- 4085 09 Mar, 2016 Saddle embolus of pulmonary artery with acute cor pulmonale I26.02 [place] [address] [address]- 4456 Jan, [place] [address] [place] [id number] [place] [address] 84595- 5910 Jan, Encounter for immunization Z23 and History of pulmonary embolus (PE) Z86.711 [place] [address] [place] [id number] [place] [address] 86779- 3034 Jan, [place] [address] [place] [id number] [place] [address] 40079- 9876 Jan, Saddle embolus of pulmonary artery with acute cor pulmonale I26.02 [place] [address] [place] [address] 90439- 9865 Jan, Saddle embolus of pulmonary artery with acute cor pulmonale I26.02 [place] [address] [address]- 5752 Dec, Blood thinned due to long-term anticoagulant use Z79.01 and History of pulmonary embolus (PE) Z86.711 [place] [address] [address]- 6810 Nov, Blood thinned due to long-term anticoagulant use Z79.01 and History of pulmonary embolus (PE) Z86.711 [place] [address] [address]- 6937 October, Blood thinned due to long-term anticoagulant use Z79.01 [place] [address] [address]- 0925 Sep, History of pulmonary embolus (PE) Z86.711 [place] [address] [place] [id number] [place] [address] 64672- 1824 11 Oct, 2015 [place] [address] 67697- 5829 08 Oct, 2015 Saddle embolus of pulmonary artery 415.13 ; Abnormal blood chemistry 790.6 and Hyperlipidemia E78.5 [place] [address] 34254- 8725 14 Aug, 2015 Saddle embolus of pulmonary artery 415.13 and Abnormal blood chemistry 790.6 [place] [address] 86995- 4935 10 Aug, 2015 Saddle embolus of pulmonary artery 415.13 and Abnormal blood chemistry 790.6 [place] [address] 36489- 8488 Jul, Saddle embolus of pulmonary artery 415.13 and Abnormal blood chemistry 790.6 [place] [address] 11916- 8024 Jun, Saddle embolus of pulmonary artery 415.13 and Abnormal blood chemistry 790.6 [place] [address] [place] [id number] [place] [address] 48444- 0354 May, Saddle embolus of pulmonary artery 415.13 and Abnormal blood chemistry 790.6 [place] [address] [place] [id number] [place] [address] 65995- 3745 Apr, Visual field defect H53.40 [place] [id number] [place] [address] 24301- 5370 Apr, Flu vaccine need Z23 [address] [address]- 1965 Apr, Saddle embolus of pulmonary artery 415.13 and Abnormal blood chemistry 790.6 [place] [address] 58954- 6321 Mar, Saddle embolus of pulmonary artery 415.13 and Abnormal blood chemistry 790.6 [facility] [address] [place] [address] 69149- 9254 Jan, Saddle embolus of pulmonary artery 415.13 and Abnormal blood chemistry 790.6 [facility] [address] [place] [id number] [place] [address] 29172- 0142 10 Dec, 2014 Saddle embolus of pulmonary artery 415.13 and Abnormal blood chemistry 790.6 [facility] [address] [place] [id number] [place] [address] 25956- 6783 Nov, [facility] [address] [place] [id number] [place] [address] 14898- 3119 Nov, Headache 784.0 [facility] [address] [place] [id number] [place] [address] 19936- 2381 Nov, [facility] [address] [place] [id number] [place] [address] 92041- 5595 Nov, Saddle embolus of pulmonary artery 415.13 and Abnormal blood chemistry 790.6 [facility] [address] [place] [id number] [place] [address] 38541- 7698 Nov, [facility] [address] [place] [id number] [place] [address] 37147- 1014 Nov, Saddle embolus of pulmonary artery 415.13 and Abnormal blood chemistry 790.6 [facility] [address] [place] [id number] [place] [address] 72868- 5044 October, Abnormal blood chemistry 790.6 and Saddle embolus of pulmonary artery 415.13 [facility] [id number] [place] [address] 86239- 3687 14 Sep, 2014 [facility] [address] [place] [id number] [place] [address] 19535- 0890 Sep, [facility] [address] [place] [id number] [place] [address] 57508- 3725 Aug, [facility] [place] [facility] [address] [id number] [place] [address]- 5258 10 Aug, 2014 [facility] [place] [facility] [address] [id number] [place] [address]- 9550 Aug, [facility] [place] [facility] [address] [id number] [place] [address]- 5496 Aug, [facility] [place] [facility] [address] [id number] [place] [address]- 8530 Aug, [facility] [place] [facility] [address] [id number] [place] [address]- 1626 Aug, [facility] [place] [facility] [address] [id number] [place] [address]- 8653 Jul, [facility] [place] [facility] [address] [id number] [place] [address]- 7574 Jul, [facility] [place] [facility] [address] [id number] [place] [address]- 2933 Jun, [facility] [place] [facility] [address] [id number] [place] [address]- 7212 Jun, [facility] [place] [facility] [address] [id number] [place] [address]- 4045 May, [facility] [place] [facility] [address] [id number] [place] [address]- 8365 May, [facility] [place] [facility] [address] [id number] [address]- 1845 Apr, [facility] [place] [facility] [address] [id number] [place] [address]- 6921 Apr, [facility] [place] [facility] [address] [id number] [place] [address]- 6963 Mar, [facility] [place] [facility] [address] [id number] [place] [address]- 7025 Mar, [facility] [place] [facility] [address] [id number] [address]- 8330 15 Mar, 2014 [facility] [place] [facility] [address] [id number] [place] [address]- 7151 15 Mar, 2014 [facility] [place] [facility] [address] [id number] [place] [address]- 3393 05 Mar, 2014 [facility] [place] [facility] [address] [id number] [place] [address]- 5082 05 Mar, 2014 [facility] [place] [facility] [address] [id number] [place] [address]- 3348 Mar, [facility] [place] [facility] [address] [id number] [place] [address]- 4401 Mar, [facility] [place] [facility] [address] [id number] [place] [address]- 2707 Jan, [facility] [place] [facility] [address] [id number] [place] [address]- 4926 Jan, [facility] [place] [facility] [address] [id number] [place] [address]- 5459 Jan, [facility] [place] [facility] [address] [id number] [place] [address]- 2378 Jan, [facility] [place] [facility] [address] [id number] [place] [address]- 4815 Dec, [facility] [place] [facility] [address] [id number] [place] [address]- 2169 Dec, [facility] [place] [facility] [address] [id number] [place] [address]- 9994 Dec, [facility] [place] [facility] [address] [id number] [place] [address]- 7127 Dec, [facility] [place] [facility] [address] [id number] [place] [address]- 4126 Dec, [facility] [place] [facility] [address] [id number] [place] [address]- 7243 Dec, [facility] [place] [facility] [address] [id number] [place] [address] 2543 Dec, 2013 [facility] [place] [facility] [address] [id number] [place] [address]- 0103 Dec, [facility] [place] [facility] [address] [id number] [place] [address]- 2546 Dec, [facility] [place] [facility] [address] [id number] [place] [address]- 8874 Dec, [facility] [place] [facility] [address] [id number] [place] [address]- 8613 Dec, [facility] [place] [facility] [address] [id number] [place] [address]- 6359 Dec, [facility] [place] [facility] [address] [id number] [place] [address]- 5402 Nov, [facility] [place] [facility] [address] [id number] [place] [address]- 3056 Nov, [facility] [place] [facility] [address] [id number] [place] [address]- 2778 October, [facility] [place] [facility] [address] [id number] [place] [address]- 2181 October, [facility] [place] [facility] [address] [id number] [place] [address]- 0346 Sep, [facility] [place] [facility] [address] [id number] [place] [address]- 5763 Sep, [facility] [place] [facility] [address] [id number] [place] [address]- 2541 Aug, [facility] [place] [facility] [address] [id number] [place] [address]- 4966 Aug, [facility] [place] [facility] [address] [id number] [place] [address]- 2546 Aug, [facility] [place] [facility] [address] [id number] [place] [address]- 9183 Aug, [facility] [place] [facility] [address] [id number] [place] [address]- 4237 Aug, [facility] [place] [facility] [address] [id number] [place] [address]- 5474 Aug, [facility] [place] [facility] [address] [id number] [place] [address]- 4697 Aug, [facility] [place] [facility] [address] [id number] [place] [address]- 5422 Aug, [facility] [place] [facility] [address] [id number] [place] [address]- 5198 Aug, [facility] [place] [facility] [address] [id number] [place] [address]- 9495 Aug, [facility] [place] [facility] [address] [id number] [place] [address]- 5102 Aug, [facility] [place] [facility] [address] [id number] [place] [address]- 0923 Aug, [facility] [place] [facility] [address] [id number] [place] [address]- 8200 Aug, [facility] [place] [facility] [address] [id number] [place] [address]- 1123 Aug, [facility] [place] [facility] [address] [id number] [place] [address]- 3212 Jul, [facility] [place] [facility] [address] [id number] [place] [address]- 5905 Jul, [facility] [place] [facility] [address] [id number] [place] [address]- 3123 Jul, [facility] [place] [facility] [address] [id number] [place] [address]- 1657 Jul, [facility] [place] [facility] [address] [id number] [place] [address]- 6943 Jul, [facility] [place] [facility] [address] [id number] [place] [address]- 4838 Jun, [facility] [address] [id number] [place] [address]- 8329 Jun, [facility] [place] [facility] [address] [id number] [place] [address]- 2546 Jun, [facility] [place] [facility] [address] [id number] [place] [address]- 5173 Jun, [facility] [place] [facility] [address] [id number] [place] [address]- 3543 May, [facility] [place] [facility] [address] [id number] [place] [address]- 8746 May, [facility] [place] [facility] [address] [id number] [place] [address]- 7112 May, [facility] [place] [facility] [address] [id number] [place] [address]- 7012 May, [facility] [address] [id number] [place] [address]- 4894 Apr, [facility] [place] [facility] [address] [id number] [place] [address]- 1559 Mar, [facility] [place] [facility] [address] [id number] [place] [address]- 5174 Jan, [facility] [place] [facility] [address] [id number] [place] [address]- 4589 Jan, [facility] [place] [facility] [address] [id number] [place] [address]- 0160 Jan, [facility] [place] [facility] [address] [id number] [place] [address]- 4456 Jan, [facility] [place] [facility] [address] [id number] [place] [address]- 2546 October, [facility] [place] [facility] [address] [id number] [place] [address]- 5353 Aug, [facility] [id number] [address]- 8099 Aug, [facility] [address] [address]- 4345 Apr, [facility] [address] [address]- 4586 Apr, [facility] [address] [address]- 2336 May, [facility] [address] [address]- 6860 May, [facility] [id number] [place] [address] 13161- 1342 May, [facility] [address] [address]- 4825 Apr, [facility] [id number] [address]- 4817 Jul, [facility] [address] [address]- 8170 Jun, IMMUNIZATIONS No Known Immunizations SOCIAL HISTORY Never Assessed REASON FOR VISIT ELIOT PLAN OF CARE Activity Details Follow Up prn Reason:te . need med clearance VITAL SIGNS Blood pressure systolic 126 mmHg 2017-02-23 Blood pressure diastolic 76 mmHg 2017-02-23 MEDICATIONS Medication Instructions Dosage Frequency Start Date End Date Duration Status Lipitor 40 MG Orally Once a day 1 tablet 24h Active ProAir RespiClick 108 (90 Base) MCG/ACT Inhalation every 4 hrs 1 puff as needed 4h Active Amoxicillin 500 MG Orally every 8 hrs 1 capsule 8h 7 days Active Neurontin 300 MG Orally Three times a day 1 capsule 8h Nov, Active Warfarin Sodium 5MG TAKE 1 TABLET BY MOUTH SUNDAY, SUNDAY, SUNDAY. TAKE 1 AND 1/2 TABLETS BY MOUTH DAILY ON SUNDAY, SUNDAY, SUNDAY, AND SUNDAY Active Atenolol Active Spironolactone Active Furosemide Active Lisinopril 10 MG Orally Once a day 1 tablet 24h Active Breo Ellipta 100-25 MCG/INH Inhalation Once a day 1 puff 24h Active Aspirin Active Fish Oil Concentrate 1000 MG Orally 2 times a day 2 capsules 12h Active Fioricet 50-300-40 MG Orally every 4 hrs 1 capsule as needed 4h Nov, Active Singulair Active Incruse Ellipta Active ZyrTEC Active RESULTS No Results PROCEDURES Procedure Date Ordered Result Body Site LTD ORAL EVALUATION - PROBLEM FOCUS Feb 23, 2017 INTRAORL-PERIAPICAL 1 FILM 63760 Feb 23, 2017 BITEWING - SINGLE FILM Feb 23, 2017 INSTRUCTIONS MEDICATIONS ADMINISTERED No Known Medications MEDICAL (GENERAL) HISTORY Type Description Date Medical History cardiovascular disorder-VT on 05/23/10 with stent x 1 Medical History hypertension Medical History hyperlipidemia Medical History respiratory disorder- Saddle PE 02/05/13 (Dr. Winn) Medical History hematologic disorder-DVT 02/03/13 ([facility]) Surgical History back surgery Surgical History angioplasty-stent x 2 05/2010 Surgical History abdominal surgery-Venacava filter placed 01/2013 Hospitalization History DVT that lead to a saddle PE. Was shipped to [facility] in [place], [place]. 01/2013
--- OUTSIDE RECORDS SUMMARY | 2017-12-06 11:17 | XMS REPORT ---
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 270270160339104 Problem Arteriosclerotic coronary artery disease I25.10 Active 799643004520412 Problem Blood thinned due to long-term anticoagulant use Z79.01 Active [id number] Problem History of pulmonary embolus (PE) Z86.711 Active [id number] ALLERGIES No Information ENCOUNTERS Encounter Location Date Diagnosis [place] [id number] [place] [address] 34006- 2055 October, Saddle embolus of pulmonary artery with acute cor pulmonale I26.02 [place] [id number] [place] [address] 45119- 4145 Sep, Near syncope R55 [place] [id number] [place] [address] 72860- 2241 Sep, Saddle embolus of pulmonary artery with acute cor pulmonale I26.02 ; Blood thinned due to long-term anticoagulant use Z79.01 and Arteriosclerotic coronary artery disease I25.10 [place] [id number] [place] [address] 05949- 9482 Sep, [place] [id number] [place] [address] 24484- 4797 Sep, Sore throat J02.9 [place] [id number] [place] [address] 85260- 7496 Aug, Saddle embolus of pulmonary artery with acute cor pulmonale I26.02 [facility] [address] [place] [address] 88159- 5927 Jul, Saddle embolus of pulmonary artery with acute cor pulmonale I26.02 ; Blood thinned due to long-term anticoagulant use Z79.01 and Arteriosclerotic coronary artery disease I25.10 [facility] [id number] [place] [address] 10462- 6675 Jun, Saddle embolus of pulmonary artery with acute cor pulmonale I26.02 [facility] [id number] [place] [address] 59252- 4215 Jun, 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 [place] [id number] [place] [address] 31589- 2634 May, Saddle embolus of pulmonary artery with acute cor pulmonale I26.02 [facility] [id number] [place] [address] 23004- 4160 Apr, Saddle embolus of pulmonary artery with acute cor pulmonale I26.02 [place] [id number] [place] [address] 35137- 8725 15 Mar, 2017 Saddle embolus of pulmonary artery with acute cor pulmonale I26.02 [facility] [id number] [place] [address] [id number] Mar, Dental caries K02.9 [facility] [id number] [place] [address] [id number] Jan, Dental examination Z01.20 [facility] [id number] [place] [address] 99803- 9794 Jan, Saddle embolus of pulmonary artery with acute cor pulmonale I26.02 ; Blood thinned due to long-term anticoagulant use Z79.01 and Arteriosclerotic coronary artery disease I25.10 [facility] [id number] [place] [address] 28648- 9729 Dec, Saddle embolus of pulmonary artery with acute cor pulmonale I26.02 [facility] [address] [place] [address] 60413- 4281 Nov, Saddle embolus of pulmonary artery with acute cor pulmonale I26.02 [facility] [address] [address]- 5463 October, [facility] [id number] [place] [address] 62689- 3484 October, Saddle embolus of pulmonary artery with acute cor pulmonale I26.02 [facility] [address] [place] [address] 78954- 7236 Sep, Saddle embolus of pulmonary artery with acute cor pulmonale I26.02 [facility] [address] [place] [address] [id number] Aug, Dental examination Z01.20 [facility] [address] [place] [address] 93335- 0631 Aug, Saddle embolus of pulmonary artery with acute cor pulmonale I26.02 [facility] [address] [place] [address] 37140- 8697 Aug, Saddle embolus of pulmonary artery with acute cor pulmonale I26.02 [facility] [address] [place] [address] 79280- 9397 Jul, Saddle embolus of pulmonary artery with acute cor pulmonale I26.02 [facility] [address] [address]- 9091 Jun, 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 [facility] [address] [address]- 2139 May, Blood thinned due to long-term anticoagulant use Z79.01 [facility] [address] [address]- 6029 04 May, 2016 Saddle embolus of pulmonary artery with acute cor pulmonale I26.02 and Arteriosclerotic coronary artery disease I25.10 [facility] [address] [address]- 8848 Apr, Saddle embolus of pulmonary artery with acute cor pulmonale I26.02 [place] [address] [place] [address] 32798- 2917 09 Mar, 2016 Saddle embolus of pulmonary artery with acute cor pulmonale I26.02 [facility] [address] [place] [address] 19400- 5264 Jan, [place] [id number] [place] [address] 86812- 2702 Jan, Encounter for immunization Z23 and History of pulmonary embolus (PE) Z86.711 [place] [id number] [address]- 6333 Jan, [place] [id number] [place] [address] 59438- 9546 Jan, Saddle embolus of pulmonary artery with acute cor pulmonale I26.02 [place] [address] [place] [address] 50309- 4357 Jan, Saddle embolus of pulmonary artery with acute cor pulmonale I26.02 [facility] [address] [address]- 9995 14 Dec, 2015 Blood thinned due to long-term anticoagulant use Z79.01 and History of pulmonary embolus (PE) Z86.711 [place] [address] [address]- 4742 14 Dec, 2015 Blood thinned due to long-term anticoagulant use Z79.01 and History of pulmonary embolus (PE) Z86.711 [place] [address] [place] [address] 59024- 6401 October, Blood thinned due to long-term anticoagulant use Z79.01 [place] [address] 75975- 3114 Sep, History of pulmonary embolus (PE) Z86.711 [place] [address] 80207- 5384 Sep, [place] [address] 34386- 2863 08 Oct, 2015 Saddle embolus of pulmonary artery 415.13 ; Abnormal blood chemistry 790.6 and Hyperlipidemia E78.5 [place] [address] 96810- 0913 14 Aug, 2015 Saddle embolus of pulmonary artery 415.13 and Abnormal blood chemistry 790.6 [place] [address] 90150- 9971 10 Aug, 2015 Saddle embolus of pulmonary artery 415.13 and Abnormal blood chemistry 790.6 [place] [address] 33842- 9740 Jul, Saddle embolus of pulmonary artery 415.13 and Abnormal blood chemistry 790.6 [place] [address] 55742- 1913 Jun, Saddle embolus of pulmonary artery 415.13 and Abnormal blood chemistry 790.6 [place] [address] 59274- 9153 May, Saddle embolus of pulmonary artery 415.13 and Abnormal blood chemistry 790.6 [place] [address] 92196- 7728 Apr, Visual field defect H53.40 [place] [address] 63679- 3750 Apr, Flu vaccine need Z23 [place] [address] [place] [address]- 7544 Apr, Saddle embolus of pulmonary artery 415.13 and Abnormal blood chemistry 790.6 [facility] [id number] [place] [address] 40357- 1405 10 Mar, 2015 Saddle embolus of pulmonary artery 415.13 and Abnormal blood chemistry 790.6 [facility] [id number] [place] [address] 64021- 4101 Jan, Saddle embolus of pulmonary artery 415.13 and Abnormal blood chemistry 790.6 [facility] [id number] [place] [address] 43627- 1686 Dec, Saddle embolus of pulmonary artery 415.13 and Abnormal blood chemistry 790.6 [facility] [id number] [place] [address] 80923- 1647 Nov, [facility] [id number] [place] [address] 63092- 8446 Nov, Headache 784.0 [facility] [id number] [place] [address] 22858- 6980 Nov, [facility] [id number] [place] [address] 58195- 2775 Nov, Saddle embolus of pulmonary artery 415.13 and Abnormal blood chemistry 790.6 [facility] [id number] [place] [address] 07206- 5172 Nov, [facility] [id number] [place] [address] 15907- 2540 Nov, Saddle embolus of pulmonary artery 415.13 and Abnormal blood chemistry 790.6 [facility] [id number] [place] [address] 64428- 5927 October, Abnormal blood chemistry 790.6 and Saddle embolus of pulmonary artery 415.13 [facility] [id number] [place] [address] 79255- 4777 14 Sep, 2014 [facility] [place] [facility] [address] [id number] [place] [address]- 6006 13 Sep, 2014 [facility] [place] [facility] [address] [id number] [place] [address]- 4867 10 Aug, 2014 [facility] [place] [facility] [address] [id number] [place] [address]- 5660 10 Aug, 2014 [facility] [place] [facility] [address] [id number] [place] [address]- 2162 13 Aug, 2014 [facility] [place] [facility] [address] [id number] [place] [address]- 2102 Aug, [facility] [place] [facility] [address] [id number] [place] [address]- 8006 Aug, [facility] [place] [facility] [address] [id number] [place] [address]- 2202 Aug, [facility] [place] [facility] [address] [id number] [place] [address]- 5661 Jul, [facility] [place] [facility] [address] [id number] [place] [address]- 9483 Jul, [facility] [place] [facility] [address] [id number] [place] [address]- 6022 Jun, [facility] [place] [facility] [address] [id number] [place] [address]- 3166 Jun, [facility] [place] [facility] [address] [id number] [place] [address]- 1170 May, [facility] [place] [facility] [address] [id number] [place] [address]- 3034 May, [facility] [place] [facility] [address] [id number] [place] [address]- 3093 13 Apr, 2014 [facility] [place] [facility] [address] [id number] [place] [address]- 7626 13 Apr, 2014 [facility] [place] [facility] [address] [id number] [place] [address]- 2480 29 Mar, 2013 [facility] [place] [facility] [address] [id number] [place] [address]- 7448 29 Mar, 2013 [facility] [place] [facility] [address] [id number] [place] [address]- 3866 15 Mar, 2013 [facility] [place] [facility] [address] [id number] [place] [address]- 1286 15 Mar, 2013 [facility] [place] [facility] [address] [id number] [place] [address]- 2106 05 Mar, 2013 [facility] [place] [facility] [address] [id number] [place] [address]- 6710 05 Mar, 2013 [facility] [place] [facility] [address] [id number] [place] [address]- 8496 Mar, 2013 [facility] [place] [facility] [address] [id number] [place] [address]- 7101 Mar, 2013 [facility] [place] [facility] [address] [id number] [place] [address]- 3277 Jan, [facility] [place] [facility] [address] [id number] [place] [address]- 1360 Jan, [facility] [place] [facility] [address] [id number] [place] [address]- 2006 Jan, [facility] [place] [facility] [address] [id number] [place] [address]- 7159 Jan, [facility] [place] [facility] [address] [id number] [place] [address]- 8987 Dec, [facility] [place] [facility] [address] [id number] [place] [address]- 1687 Dec, [facility] [place] [facility] [address] [id number] [place] [address]- 6435 Dec, [facility] [place] [facility] [address] [id number] [place] [address]- 4730 Dec, [facility] [place] [facility] [address] [id number] [place] [address]- 3936 14 Dec, 2013 [facility] [place] [facility] [address] [id number] [place]90 14 Dec, 2013 [facility] [place] [facility] [address] [id number] [place] [address]- 0646 Dec, 2013 [facility] [place] [facility] [address] [id number] [place] [address]- 7006 Dec, 2013 [facility] [place] [facility] [address] [id number] [place] [address]- 8807 Dec, 2013 [facility] [place] [facility] [address] [id number] [place] [address]- 1351 Dec, [facility] [place] [facility] [address] [id number] [place] [address]- 0137 Dec, [facility] [place] [facility] [address] [id number] [place] [address]- 1235 Dec, [facility] [place] [facility] [address] [id number] [place] [address]- 0006 Nov, [facility] [place] [facility] [address] [id number] [place] [address]- 8284 Nov, [facility] [place] [facility] [address] [id number] [place] [address]- 4848 October, [facility] [place] [facility] [address] [id number] [place] [address]- 5022 October, [facility] [place] [facility] [address] [id number] [place] [address]- 1461 Sep, [facility] [place] [facility] [address] [id number] [place] [address]- 0671 Sep, [facility] [place] [facility] [address] [id number] [place] [address]- 2609 Aug, [facility] [place] [facility] [address] [id number] [place] [address]- 5335 Aug, [facility] [place] [facility] [address] [id number] [place] [address]- 0778 Aug, [facility] [place] [facility] [address] [id number] [place] [address]- 8402 Aug, [facility] [place] [facility] [address] [facility] [id number] [place] [address]- 9112 Aug, [facility] [place] [facility] [address] [id number] [place] [address]- 1281 Aug, [facility] [place] [facility] [address] [id number] [place] [address]- 7545 Aug, [facility] [place] [facility] [address] [id number] [place] [address]- 5855 Aug, [facility] [place] [facility] [address] [facility] [id number] [place] [address]- 7480 Aug, [facility] [place] [facility] [address] [id number] [place] [address]- 4338 Aug, [facility] [place] [facility] [address] [id number] [place] [address]- 0870 Aug, [facility] [place] [facility] [address] [id number] [place] [address]- 9226 Aug, [facility] [place] [facility] [address] [id number] [place] [address]- 0297 Aug, [facility] [place] [facility] [address] [id number] [place] [address]- 8041 Aug, [facility] [place] [facility] [address] [id number] [place] [address]- 8889 Jul, [facility] [place] [facility] [address] [id number] [place] [address]- 0600 Jul, [facility] [place] [facility] [address] [facility] [id number] [place] [address]- 1006 Jul, [facility] [place] [facility] [address] [id number] [place] [address]- 2294 Jul, [facility] [place] [facility] [address] [id number] [place] [address]- 3059 Jul, [facility] [place] [facility] [address] [id number] [place] [address]- 2739 Jun, [facility] [place] [facility] [address] [id number] [place] [address]- 7414 Jun, [facility] [place] [facility] [address] [id number] [place] [address]- 0205 Jun, [facility] [place] [facility] [address] [id number] [place] [address]- 3749 Jun, [facility] [place] [facility] [address] [id number] [place] [address]- 9725 May, [facility] [place] [facility] [address] [id number] [place] [address]- 3355 May, [facility] [place] [facility] [address] [id number] [place] [address]- 7104 May, [facility] [place] [facility] [address] [id number] [place] [address]- 2537 May, [facility] [place] [facility] [address] [id number] [place] [address]- 6202 Apr, [facility] [place] [facility] [address] [id number] [place] [address]- 5848 Mar, [facility] [place] [facility] [address] [id number] [place] [address]- 5640 Jan, [facility] [place] [facility] [address] [id number] [place] [address]- 8487 Jan, [facility] [place] [facility] [address] [id number] [place] [address]- 2546 Jan, [facility] [place] [facility] [address] [id number] [place] [address]- 2383 Jan, [facility] [id number] [address]- 2546 October, [facility] [address] [address]- 2546 Aug, [facility] [address] [address]- 2546 Aug, [facility] [address] [address]- 2546 Apr, [facility] [address] [address]- 2546 Apr, [facility] [address] [place] [address] 90771- 2546 May, [facility] [address] [address]- 2546 May, [facility] [address] [address]- 2546 May, [facility] [address] [address]- 2546 Apr, [facility] [address] [address]- 2546 Jul, [facility] [id number] [address]- 2546 Jun, IMMUNIZATIONS No Known Immunizations SOCIAL HISTORY Never Assessed REASON FOR VISIT Refill request PLAN OF CARE VITAL SIGNS MEDICATIONS Medication Instructions Dosage Frequency Start Date End Date Duration Status Warfarin Sodium 5MG TAKE 1 TABLET BY MOUTH SUNDAY, SUNDAY, SUNDAY. TAKE 1 AND 1/2 TABLETS BY MOUTH DAILY ON SUNDAY, SUNDAY, SUNDAY, AND SUNDAY Active RESULTS No Results PROCEDURES No Known procedures INSTRUCTIONS MEDICATIONS ADMINISTERED No Known Medications MEDICAL (GENERAL) HISTORY Type Description Date Medical History cardiovascular disorder-IN on 05/23/10 with stent x 1 Medical History hypertension Medical History hyperlipidemia Medical History respiratory disorder- Saddle PE 02/05/13 (Dr. Winn) Medical History hematologic disorder-DVT 02/03/13 ([facility]) Surgical History back surgery Surgical History angioplasty-stent x 2 05/2010 Surgical History abdominal surgery-Venacava filter placed 01/2013 Hospitalization History DVT that lead to a saddle PE. Was shipped to [facility] in [facility] 01/2013
--- OUTSIDE RECORDS SUMMARY | 2017-12-06 11:18 | XMS REPORT ---
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 [id number] Problem Arteriosclerotic coronary artery disease I25.10 Active [id number] Problem Blood thinned due to long-term anticoagulant use Z79.01 Active [id number] Problem History of pulmonary embolus (PE) Z86.711 Active [id number] ALLERGIES No Information ENCOUNTERS Encounter Location Date Diagnosis [facility] [id number] [place] [address] 31664- 7524 Sep, Near syncope R55 [facility] [id number] [place] [address] 60321- 2262 Sep, Saddle embolus of pulmonary artery with acute cor pulmonale I26.02 ; Blood thinned due to long-term anticoagulant use Z79.01 and Arteriosclerotic coronary artery disease I25.10 [facility] [id number] [place] [address] 19366- 1218 Sep, [facility] [id number] [place] [address] 16284- 4169 Sep, Sore throat J02.9 [facility] [id number] [place] [address] 39683- 4247 Aug, Saddle embolus of pulmonary artery with acute cor pulmonale I26.02 [facility] [id number] [place] [address] 97092- 9805 Jul, Saddle embolus of pulmonary artery with acute cor pulmonale I26.02 ; Blood thinned due to long-term anticoagulant use Z79.01 and Arteriosclerotic coronary artery disease I25.10 [facility] [id number] [place] [address] 17142- 4945 Jun, Saddle embolus of pulmonary artery with acute cor pulmonale I26.02 [facility] [id number] [place] [address] 42660- 9356 Jun, 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 [facility] [id number] [place] [address] 00306- 4839 May, Saddle embolus of pulmonary artery with acute cor pulmonale I26.02 [facility] [id number] [place] [address] 13842- 1738 Apr, Saddle embolus of pulmonary artery with acute cor pulmonale I26.02 [facility] [id number] [place] [address] 40184- 2595 Mar, Saddle embolus of pulmonary artery with acute cor pulmonale I26.02 [facility] [id number] [place] [address] [id number] Mar, Dental caries K02.9 [facility] [id number] [place] [address] [id number] Jan, Dental examination Z01.20 [facility] [id number] [place] [address] 89284- 2542 Jan, Saddle embolus of pulmonary artery with acute cor pulmonale I26.02 ; Blood thinned due to long-term anticoagulant use Z79.01 and Arteriosclerotic coronary artery disease I25.10 [facility] [id number] [place] [address] 23851- 1423 Dec, Saddle embolus of pulmonary artery with acute cor pulmonale I26.02 [facility] [id number] [place] [address] 34050- 7813 Nov, Saddle embolus of pulmonary artery with acute cor pulmonale I26.02 [facility] [id number] [place] [address] 83363- 2629 October, [facility] [id number] [place] [address] 25059- 7626 October, Saddle embolus of pulmonary artery with acute cor pulmonale I26.02 [facility] [id number] [place] [address] 47253- 6070 Sep, Saddle embolus of pulmonary artery with acute cor pulmonale I26.02 [facility] [id number] [place] [address] [id number] Aug, Dental examination Z01.20 [facility] [id number] [place] [address] 38376- 8791 Aug, Saddle embolus of pulmonary artery with acute cor pulmonale I26.02 [facility] [id number] [place] [address] 26000- 7837 Aug, Saddle embolus of pulmonary artery with acute cor pulmonale I26.02 [facility] [id number] [place] [address] 44370- 0614 Jul, Saddle embolus of pulmonary artery with acute cor pulmonale I26.02 [facility] [address] [place] [address] 55090- 2995 Jun, 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 [facility] [address] [address]- 9559 May, Blood thinned due to long-term anticoagulant use Z79.01 [facility] [address] [address]- 3235 04 May, 2016 Saddle embolus of pulmonary artery with acute cor pulmonale I26.02 and Arteriosclerotic coronary artery disease I25.10 [facility] [address] [address]- 6027 11 Apr, 2016 Saddle embolus of pulmonary artery with acute cor pulmonale I26.02 [facility] [address] [address]- 2165 09 Mar, 2016 Saddle embolus of pulmonary artery with acute cor pulmonale I26.02 [facility] [id number] [place] [address] 56196- 1908 Jan, [facility] [id number] [place] [address] 74639- 5385 Jan, Encounter for immunization Z23 and History of pulmonary embolus (PE) Z86.711 [facility] [id number] [place] [address] 83606- 6249 Jan, [facility] [id number] [place] [address] 09348- 0914 Jan, Saddle embolus of pulmonary artery with acute cor pulmonale I26.02 [facility] [id number] [place] [address] 53866- 5850 Jan, Saddle embolus of pulmonary artery with acute cor pulmonale I26.02 [facility] [address] [address]- 9625 Dec, Blood thinned due to long-term anticoagulant use Z79.01 and History of pulmonary embolus (PE) Z86.711 [facility] [address] [address]- 7509 Nov, Blood thinned due to long-term anticoagulant use Z79.01 and History of pulmonary embolus (PE) Z86.711 [facility] [address] [address]- 6157 October, Blood thinned due to long-term anticoagulant use Z79.01 [facility] [address] [address]- 3315 Sep, History of pulmonary embolus (PE) Z86.711 [facility] [address] 22701- 3707 Sep, [facility] [facility] [id number]- 4789 Sep, Saddle embolus of pulmonary artery 415.13 ; Abnormal blood chemistry 790.6 and Hyperlipidemia E78.5 [facility] [address] 93025- 2135 Aug, Saddle embolus of pulmonary artery 415.13 and Abnormal blood chemistry 790.[address] 27549- 3026 10 Aug, 2015 Saddle embolus of pulmonary artery 415.13 and Abnormal blood chemistry 790.[address] 96725- 6048 Jul, Saddle embolus of pulmonary artery 415.13 and Abnormal blood chemistry 790.6 [facility] [address] 46621- 1931 Jun, Saddle embolus of pulmonary artery 415.13 and Abnormal blood chemistry 790.6 [facility] [address] 13640- 1065 May, Saddle embolus of pulmonary artery 415.13 and Abnormal blood chemistry 790.6 [facility] [address] 74905- 8279 Apr, Visual field defect H53.[address] 88144- 0154 Apr, Flu vaccine need Z23 [address] 07188- 8356 Apr, Saddle embolus of pulmonary artery 415.13 and Abnormal blood chemistry 790.[address] [place] [address]- 3608 10 Mar, 2015 Saddle embolus of pulmonary artery 415.13 and Abnormal blood chemistry 790.6 [facility] [id number] [place] [address] 35080- 1639 10 Jan, 2015 Saddle embolus of pulmonary artery 415.13 and Abnormal blood chemistry 790.6 [facility] [id number] [place] [address] 53953- 9967 10 Dec, 2014 Saddle embolus of pulmonary artery 415.13 and Abnormal blood chemistry 790.6 [facility] [id number] [place] [address] 37241- 8820 Nov, [facility] [id number] [place] [address] 98781- 3534 Nov, Headache 784.0 [facility] [id number] [place] [address] 55976- 9754 Nov, [facility] [id number] [place] [address] 95059- 3496 Nov, Saddle embolus of pulmonary artery 415.13 and Abnormal blood chemistry 790.6 [facility] [id number] [place] [address] 79342- 9666 Nov, [facility] [id number] [place] [address] 92759- 5774 Nov, Saddle embolus of pulmonary artery 415.13 and Abnormal blood chemistry 790.6 [facility] [address] [place] [address] 65346- 6800 October, Abnormal blood chemistry 790.6 and Saddle embolus of pulmonary artery 415.13 [facility] [id number] [place] [address] 75982- 7498 14 Sep, 2014 [facility] [id number] [place] [address] 66551- 4350 13 Sep, 2014 [facility] [id number] [place] [address] 97881- 7519 Aug, [facility] [place] [facility] [address] [id number] [place] [address]- 5175 Aug, [facility] [place] [facility] [address] [id number] [place] [address]- 2011 Aug, [facility] [place] [facility] [address] [id number] [place] [address]- 0086 Aug, [facility] [place] [facility] [address] [id number] [place] [address]- 9175 Aug, [facility] [place] [facility] [address] [id number] [place] [address]- 0576 Aug, [facility] [place] [facility] [address] [facility] [id number] [place] [address]- 3081 Jul, [facility] [place] [facility] [address] [facility] [id number] [place] [address]- 6534 Jul, [facility] [place] [facility] [address] [id number] [place] [address]- 3829 Jun, [facility] [place] [facility] [address] [id number] [place] [address]- 6908 Jun, [facility] [place] [facility] [address] [facility] [id number] [place] [address]- 8597 May, [facility] [place] [facility] [address] [id number] [place] [address]- 6029 May, [facility] [place] [facility] [address] [id number] [place] [address]- 5973 Apr, [facility] [place] [facility] [address] [id number] [place] [address]- 5450 Apr, [facility] [place] [facility] [address] [id number] [place] [address]- 5574 Mar, [facility] [place] [facility] [address] [id number] [place] 8809 Mar, [facility] [place] [facility] [address] [id number] [place] [address]- 5867 15 Mar, 2013 [facility] [place] [facility] [address] [id number] [place] [address]- 4772 Mar, [facility] [place] [facility] [address] [id number] [place] [address]- 3373 Mar, [facility] [place] [facility] [address] [id number] [place] [address]- 9685 Mar, [facility] [place] [facility] [address] [id number] [place] [address]- 2623 Mar, [facility] [place] [facility] [address] [id number] [place] [address]- 3140 Mar, [facility] [place] [facility] [address] [id number] [place] [address]- 8983 Jan, [facility] [place] [facility] [address] [id number] [place] [address]- 9094 Jan, [facility] [place] [facility] [address] [id number] [place] [address]- 3196 Jan, [facility] [place] [facility] [address] [id number] [place] [address]- 4325 Jan, [facility] [place] [facility] [address] [id number] [place] [address]- 8375 Dec, [facility] [place] [facility] [address] [id number] [place] [address]- 8706 Dec, [facility] [place] [facility] [address] [id number] [place] [address]- 1506 Dec, [facility] [place] [facility] [address] [id number] [place] [address]- 8300 Dec, [facility] [place] [facility] [address] [id number] [place] [address]- 4607 Dec, [facility] [place] [facility] [address] [id number] [place] [address]- 2546 Dec, [facility] [place] [facility] [address] [id number] [place] 1156 Dec, [facility] [place] [facility] [address] [id number] [place] [address]- 3191 Dec, [facility] [place] [facility] [address] [id number] [place] [address]- 3369 Dec, [facility] [place] [facility] [address] [id number] [place] [address]- 9834 Dec, [facility] [place] [facility] [address] [id number] [place] [address]- 5788 Dec, [facility] [place] [facility] [address] [id number] [place] [address]- 5519 Dec, [facility] [place] [facility] [address] [id number] [place] [address]- 8213 Nov, [facility] [place] [facility] [address] [id number] [place] [address]- 9166 Nov, [facility] [place] [facility] [address] [id number] [place] [address]- 1409 October, [facility] [place] [facility] [address] [id number] [place] [address]- 5354 October, [facility] [place] [facility] [address] [id number] [place] [address]- 6639 Sep, [facility] [place] [facility] [address] [id number] [place] [address]- 6721 Sep, [facility] [place] [facility] [address] [id number] [place] [address]- 2098 Aug, [facility] [place] [facility] [address] [id number] [place] [address]- 4123 Aug, [facility] [place] [facility] [address] [id number] [place] [address]- 6675 Aug, [facility] [place] [facility] [address] [id number] [place] [address]- 5963 Aug, [facility] [place] [facility] [address] [id number] [place] [address]- 2668 Aug, [facility] [place] [facility] [address] [id number] [place] [address]- 1606 Aug, [facility] [place] [facility] [address] [id number] [place] [address]- 4077 Aug, [facility] [place] [facility] [address] [id number] [place] [address]- 3876 Aug, [facility] [place] [facility] [address] [id number] [place] [address]- 5136 Aug, [facility] [place] [facility] [address] [id number] [place] [address]- 2405 Aug, [facility] [place] [facility] [address] [id number] [place] [address]- 3249 Aug, [facility] [place] [facility] [address] [id number] [place] [address]- 4833 Aug, [facility] [place] [facility] [address] [id number] [place] [address]- 2272 Aug, [facility] [place] [facility] [address] [id number] [place] [address]- 3814 Aug, [facility] [place] [facility] [address] [id number] [place] [address]- 9881 Jul, [facility] [place] [facility] [address] [id number] [place] [address]- 9784 Jul, [facility] [place] [facility] [address] [id number] [place] [address]- 8917 Jul, [facility] [place] [facility] [address] [id number] [place] [address]- 3324 Jul, [facility] [place] [facility] [address] [id number] [place] [address]- 0542 Jul, [facility] [place] [facility] [address] [id number] [place] [address]- 2348 Jun, [facility] [place] [facility] [address] [id number] [place] [address]- 7306 Jun, [facility] [place] [facility] [address] [id number] [place] [address] 2547 Jun, [facility] [place] [facility] [address] [id number] [place] [address]- 5796 Jun, [facility] [place] [facility] [address] [id number] [place] [address]- 0059 May, [facility] [place] [facility] [address] [id number] [place] [address]- 9551 May, [facility] [place] [facility] [address] [id number] [place] [address]- 3057 May, [facility] [place] [facility] [address] [id number] [place] [address]- 5315 May, [facility] [place] [facility] [address] [id number] [place] [address]- 6299 Apr, [facility] [place] [facility] [address] [id number] [place] [address]- 8573 Mar, [facility] [place] [facility] [address] [id number] [address]- 6225 Jan, [facility] [place] [facility] [address] [id number], [place] [address]- 1783 Jan, [facility] [place] [facility] [address] [id number] [place] [address]- 3676 Jan, [facility] [place] [facility] [address] [id number] [place] [address]- 9725 Jan, [facility] [place] [facility] [address] [id number] [place] [address]- 9710 October, [facility] [place] [facility] [address] [place] [address]- 8856 Aug, [facility] [address] [place] [address]- 4729 Aug, [facility] [address] [address]- 1642 Apr, [facility] [address] [place] [address]- 8141 Apr, [facility] [address] [place] [address]- 2890 May, [facility] [id number] [place] [address] 07852- 3432 May, [facility] [address] [place] [address] 21300- 5351 May, [facility] [address] [place] [address]- 4943 Apr, [facility] [address] [place] [address]- 5101 Jul, [facility] [address] [place] [address]- 3786 Jun, IMMUNIZATIONS No Known Immunizations SOCIAL HISTORY Never Assessed REASON FOR VISIT Lab (walk-in) PLAN OF CARE VITAL SIGNS MEDICATIONS No Known Medications RESULTS Name Result Date Reference Range INR (IN HOUSE) 2017-03-16 INR 2.0 1.10 - 3.30 PREVIOUS INR 2.4 CURRENT COUMADIN DOSE Same NEW COUMADIN DOSE Lot # [id number] Exp date 10/2017 PROCEDURES Procedure Date Ordered Result Body Site PROTHROMBIN TIME Mar 16, 2017 INSTRUCTIONS MEDICATIONS ADMINISTERED No Known Medications MEDICAL (GENERAL) HISTORY Type Description Date Medical History cardiovascular disorder-OH on 05/23/10 with stent x 1 Medical History hypertension Medical History hyperlipidemia Medical History respiratory disorder- Saddle PE 02/05/13 (Dr. Winn) Medical History hematologic disorder-DVT 02/03/13 ([facility]) Surgical History back surgery Surgical History angioplasty-stent x 2 05/2010 Surgical History abdominal surgery-Venacava filter placed 01/2013 Hospitalization History DVT that lead to a saddle PE. Was shipped to [facility] in [place], [place]. 01/2013
--- NOTE | 2017-12-06 11:48 | ED Lower Extremity ---
General Chief Complaint: Lower Extremity Stated Complaint: LEFT LEG SWOLLEN Nursing Triage Note: PATIENT HERE FROM [facility] FOR CONCERNS ABOUT LEFT LOWER LEG SWELLING. HE HAD THIS OVER 4 YEARS AGO, WAITED UNTIL HE HAD PAIN AND ENDED UP HAVING DVT AND PE. HE HAS BEEN ON WARFARIN EVER SINCE AND HAS AN IVC FILTER IN PLACE. PATIENT STATES HE HAS THERAPEUTIC INRS. Nursing Sepsis Screen: No Definite Risk Source: patient Exam Limitations: no limitations History of Present Illness Date Seen by Provider: Dec 06, 2017 Time Seen by Provider: 11:45 Initial Comments to ER with left leg swelling yesterday, it seems less swollen today however. No pain. History of DVT in the left leg. He is on warfarin and has an inferior vena cava filter. Onset: just prior to arrival Severity: moderate Pain/Injury Location: left leg (no pain) Allergies and Home Medications Allergies Coded Allergies: No Known Drug Allergies (Unverified , 10/15/17) Home Medications Albuterol Sulfate 1 Puff Puff, 2 PUFF IH Q4H PRN for SHORTNESS OF BREATH, ( Reported) 1 PUFF = 90 MCG Aspirin 81 Mg Tablet.dr, 81 MG PO DAILY, (Reported) Atenolol 25 Mg Tablet, 12.5 MG PO DAILY, (Reported) Atorvastatin Calcium 40 Mg Tablet, 40 MG PO HS, (Reported) Cetirizine HCl 10 Mg Tablet, 10 MG PO DAILY, (Reported) Fluticasone/Vilanterol 1 Each Blst.w.dev, 1 PUFF INH DAILY, (Reported) Furosemide 40 Mg Tablet, 40 MG PO UD, (Reported) 40MG EVERY OTHER DAY (QOD) Lisinopril 10 Mg Tablet, 5 MG PO DAILY, (Reported) Montelukast Sodium 10 Mg Tablet, 10 MG PO DAILY, (Reported) [place]-3/Dha/Epa/Fish Oil 1 Each Capsule, 2,000 MG PO BID, (Reported) TAKES 2 (1000MG) CAPSULES Oxymetazoline HCl 30 Ml [place], 1-2 SPRAYS NS HS, (Reported) Spironolactone 25 Mg Tablet, 25 MG PO DAILY, (Reported) Umeclidinium [place] 62.5 Mcg Blst.w.dev, 1 PUFF INH DAILY, (Reported) Warfarin Sodium 5 Mg Tablet, 5 MG PO MoTuThFrSa, (Reported) Warfarin Sodium 5 Mg Tablet, 7.5 MG PO SuWe, (Reported) TAKES 1 & 1/2 (5MG) TABLETS Patient Home Medication List Home Medication List Reviewed: Yes Constitutional: see HPI EENTM: see HPI Respiratory: no symptoms reported; No short of breath Cardiovascular: no symptoms reported; No chest pain Genitourinary: no symptoms reported Musculoskeletal: see HPI Skin: no symptoms reported Psychiatric/Neurological: No Symptoms Reported Past Fvtpuyx-Fypfaf-Zmykoj Hx Patient Social History Alcohol Use: Rarely Uses Number of Drinks Today: BB Alcohol Beverage of Choice: [place] Recreational Drug Use: No Smoking Status: Current Everyday Smoker Type Used: Cigarettes 2nd Hand Smoke Exposure: Yes Recent Foreign Travel: No Contact w/Someone Who Travel: No Recent Infectious Disease Expo: No Recent Hopitalizations: No Immunizations Up To Date Tetanus Booster (TDap): Less than 5yrs Date of Pneumonia Vaccine: Dec 31, 2012 Date of Influenza Vaccine: Apr 29, 2013 Seasonal Allergies Seasonal Allergies: No Past Medical History Surgeries: Yes (LIPOMA? REMOVED FROM HEAD, heart stents, jesenia filter) Coronary Stent Respiratory: Yes (hx pe, wears 4l o2 nc at noc @ home) Asthma, COPD Currently Using CPAP: No Currently Using BIPAP: No Cardiac: Yes (CARDIAC STENTS) Coronary Artery Disease, Deep Vein Thrombosis, Heart Attack, Hypertension Neurological: No Genitourinary: No Gastrointestinal: No Musculoskeletal: Yes Degenerate Disk Disease, Chronic Back Pain Endocrine: No HEENT: No Cancer: No Psychosocial: No Integumentary: No Blood Disorders: Yes (dvt) Family Medical History Cardiovascular disease 19 MOTHER FH: lung cancer 19 FATHER Heart Disease Physical Exam Vital Signs Vital Signs - First Documented 12/06/17 11:15 Temp 97.9 Pulse 79 Resp 18 B/P (MAP) 134/89 (104) Pulse Ox 97 Capillary Refill : Less Than 3 Seconds General Appearance: WD/WN, no apparent distress HEENT: PERRL/EOMI, normal ENT inspection Neck: non-tender, full range of motion Respiratory: no respiratory distress, no accessory muscle use Gastrointestinal: normal bowel sounds, non tender, soft Hips: bilateral hip non-tender, bilateral hip normal inspection Legs: bilateral leg non-tender, bilateral leg normal inspection, bilateral leg normal range of motion; left leg other (I do not appreciate any swelling in the left lower extremity. No discoloration.) Progress/Results/Core Measures Results/Orders Lab Results Laboratory Tests Test 12/06/17 11:35 12/06/17 11:55 Range/Units White Blood Count 9.3 4.3-11.0 10^3/uL Red Blood Count 4.74 4.35-5.85 10^6/uL Hemoglobin 15.5 13.3-17.7 G/DL Hematocrit 45 40-54 % Mean Corpuscular Volume 94 80-99 FL Mean Corpuscular Hemoglobin 33 25-34 PG Mean Corpuscular Hemoglobin Concent 35 32-36 G/DL Red Cell Distribution Width 14.0 10.0-14.5 % Platelet Count 283 130-400 10^3/uL Mean Platelet Volume 9.4 7.4-10.4 FL Neutrophils (%) (Auto) 52 42-75 % Lymphocytes (%) (Auto) 36 12-44 % Monocytes (%) (Auto) 10 0-12 % Eosinophils (%) (Auto) 2 0-10 % Basophils (%) (Auto) 1 0-10 % Neutrophils # (Auto) 4.8 1.8-7.8 X 10^3 Lymphocytes # (Auto) 3.3 1.0-4.0 X 10^3 Monocytes # (Auto) 0.9 0.0-1.0 X 10^3 Eosinophils # (Auto) 0.2 0.0-0.3 10^3/uL Basophils # (Auto) 0.1 0.0-0.1 10^3/uL My Orders Orders - ETHAN GALLAGHER APRN Protime With Inr (12/06/17 11:30) Us Venous Lower Ext Lt (12/06/17 11:30) Cbc With Automated Diff (12/06/17 11:31) Vital Signs/I&O 12/06/17 11:15 Temp 97.9 Pulse 79 Resp 18 B/P (MAP) 134/89 (104) Pulse Ox 97 Blood Pressure Mean: 104 Departure Impression Primary Impression: Postthrombotic syndrome Disposition: 01 HOME, SELF-CARE Condition: Stable Departure-Patient Inst. Decision time for Depature: 12:07 Referrals: ANTHONY HAQ MD (PCP/Family) Primary Care Physician Patient Instructions: NO INSTRUCTIONS GIVEN Add. Discharge Instructions: 1. If you notice swelling the lower extremity elevated and follow-up with your doctor next week for recheck. Return to ER for any concerns.All discharge instructions reviewed with patient and/or family. Voiced understanding. ETHAN GALLAGHER APRN Dec 06, 2017 11:48
[2017-12-06 12:01] LABS: BASOPHILS # (AUTO) 0.1 10^3/uL (0.0-0.1); BASOPHILS % (AUTO) 1 % (0-10); EOSINOPHILS # (AUTO) 0.2 10^3/uL (0.0-0.3); EOSINOPHILS % (AUTO) 2 % (0-10); HEMATOCRIT 45 % (40-54); HEMOGLOBIN 15.5 G/DL (13.3-17.7); LYMPHOCYTES # (AUTO) 3.3 X 10^3 (1.0-4.0); LYMPHOCYTES % (AUTO) 36 % (12-44); MEAN CORPUSCULAR HEMOGLOBIN 33 PG (25-34); MEAN CORPUSCULAR HGB CONC 35 G/DL (32-36); MEAN CORPUSCULAR VOLUME 94 FL (80-99); MEAN PLATELET VOLUME 9.4 FL (7.4-10.4); MONOCYTES # (AUTO) 0.9 X 10^3 (0.0-1.0); MONOCYTES % (AUTO) 10 % (0-12); NEUTROPHILS # (AUTO) 4.8 X 10^3 (1.8-7.8); NEUTROPHILS % (AUTO) 52 % (42-75); PLATELET COUNT 283 10^3/uL (130-400); RED BLOOD COUNT 4.74 10^6/uL (4.35-5.85); WHITE BLOOD COUNT 9.3 10^3/uL (4.3-11.0)
[2017-12-06 12:11] VITALS: BP 134/89
[2017-12-06 12:12] LABS: INR 1.7 (0.8-1.4); PROTHROMBIN TIME PATIENT 20.3 SEC (12.2-14.7)
--- NOTE | 2017-12-06 12:39 | Diagnostic Imaging Report ---
PROCEDURE: US left lower extremity venous. INDICATION: Left leg pain and swelling. EXAMINATION: Grayscale and color Doppler evaluation of the deep veins of the left lower extremity were performed with waveform analysis. FINDINGS: Continuous venous flow is present. No intraluminal filling defect is identified. There is normal compressibility and response to augmentation. No abnormal perivascular fluid collection is identified. IMPRESSION: No ultrasound evidence of left lower extremity deep venous thrombosis. Dictated by: Dictated on workstation # [id number]
== END 2017-12-06 12:14 | disposition home or self-care (01) ==
LOC: EDUNIT# 11:09 → ER 11:11
DX: I87.002 Postthrombotic syndrome without complications of left lower extremity (principal); J44.9 Chronic obstructive pulmonary disease, unspecified; I10 Essential (primary) hypertension; I25.2 Old myocardial infarction; I25.10 Atherosclerotic heart disease of native coronary artery without angina pectoris; F17.210 Nicotine dependence, cigarettes, uncomplicated; Z95.5 Presence of coronary angioplasty implant and graft; Z79.82 Long term (current) use of aspirin; Z79.51 Long term (current) use of inhaled steroids; Z80.1 Family history of malignant neoplasm of trachea, bronchus and lung; Z82.49 Family history of ischemic heart disease and other diseases of the circulatory system; Z86.718 Personal history of other venous thrombosis and embolism; Z79.01 Long term (current) use of anticoagulants
CPT/HCPCS: 36415; 85025; 85610

== ENCOUNTER → 2018-05-31 | Outpatient (CLI) | payer BC ==
[~2018-05-31] MED LIST changes: +SPIR25TA5 PO
[2018-05-31 08:10] LABS: ALANINE AMINOTRANSFERASE 20 U/L (0-55); ALBUMIN 3.9 GM/DL (3.2-4.5); ALKALINE PHOSPHATASE 56 U/L (40-136); BUN/CREATININE RATIO 18; CARBON DIOXIDE 24 MMOL/L (21-32); CHLORIDE 107 MMOL/L (98-107); CHOLESTEROL 156 MG/DL (< 200); CREATININE SERUM 0.99 MG/DL (0.60-1.30); GFR ESTIMATED > 60; GLUCOSE 105 MG/DL (70-105); HDL CHOLESTEROL 43 MG/DL (40-60); POTASSIUM 4.3 MMOL/L (3.6-5.0); SODIUM 140 MMOL/L (135-145); TOTAL PROTEIN 6.7 GM/DL (6.4-8.2); TRIGLYCERIDES 133 MG/DL (<150); VLDL CHOLESTEROL 27 MG/DL (5-40)
== END ==
LOC: LAB 07:35
PROVIDERS: ATTEND Nurse Practitioner Family
DX: I25.10 Atherosclerotic heart disease of native coronary artery without angina pectoris (principal); I65.29 Occlusion and stenosis of unspecified carotid artery; E78.5 Hyperlipidemia, unspecified; I10 Essential (primary) hypertension
CPT/HCPCS: 36415; 80053; 80061

== ENCOUNTER 2018-08-27 07:07 | Emergency (ER) | payer MEDICARE, OTHER ==
[~2018-08-27] VITALS: Ht 182.9 cm; Wt 111.1 kg
[2018-08-27 07:19] LABS: BASOPHILS # (AUTO) 0.1 10^3/uL (0.0-0.1); BASOPHILS % (AUTO) 1 % (0-10); EOSINOPHILS # (AUTO) 0.2 10^3/uL (0.0-0.3); EOSINOPHILS % (AUTO) 3 % (0-10); HEMATOCRIT 46 % (40-54); LYMPHOCYTES % (AUTO) 31 % (12-44); MEAN CORPUSCULAR HEMOGLOBIN 33 PG (25-34); MEAN CORPUSCULAR HGB CONC 35 G/DL (32-36); MEAN CORPUSCULAR VOLUME 94 FL (80-99); MEAN PLATELET VOLUME 9.3 FL (7.4-10.4); MONOCYTES % (AUTO) 11 % (0-12); NEUTROPHILS # (AUTO) 5.4 X 10^3 (1.8-7.8); NEUTROPHILS % (AUTO) 55 % (42-75); PLATELET COUNT 300 10^3/uL (130-400); WHITE BLOOD COUNT 9.7 10^3/uL (4.3-11.0)
[2018-08-27] MEDS ORDERED: RT-ALBUTEROL/IPRATROPIUM 3 ML (DUONEB) VIAL INH ONE (07:30)
[2018-08-27 07:34] LABS: INR 2.2 (0.8-1.4); PROTHROMBIN TIME PATIENT 24.4 SEC (12.2-14.7)
--- NOTE | 2018-08-27 07:35 | ED Chest Pain ---
General Chief Complaint: Cardiac/General Problems Stated Complaint: CHEST PAIN Source: patient, EMS Exam Limitations: no limitations (SCAR TIM STUDENT) Source: patient, EMS Exam Limitations: no limitations (JENNA ROCA MD) History of Present Illness Date Seen by Provider: Aug 27, 2018 Time Seen by Provider: 07:19 Initial Comments 63 y/o M presented via EMS for some mild chest pain/pressure, moderate shortness of breath, fatigue and weakness of sudden onset. He was driving to work this morning and had sudden onset of shortness of breath and fatigue. He opened his windows and felt somewhat better but again experienced these symptoms when he arrived at work. He tried his albuterol rescue inhaler but did not notice any difference in symptoms. He stated that this was similar feeling to his [place] in 2009. He felt so fatigued that he did not feel that he could drive to the hospital from work, so he called EMS. He states that he only has mild chest pain. He also had some nausea but no vomiting or diaphoresis. Over the weekend, he was congested and had sinus pain for which he was taking Theraflu. He had not had any problems taking the Theraflu this weekend, but thought that may have been the cause of his symptoms today. He has a history significant of [place] in 2010 and blood clots with filter placement; he is on coumadin and aspirin daily. Timing/Duration: 1 hour Severity/Quality: mild, pressure Location: central Radiation: no radiation Activities at Onset: other (driving to work) Prior CP/Workup: cardiac cath, heart attack (2009 with stent placement), other (multiple DVTs with filter placement) Modifying Factors: improves with lying down, improves with nitroglycerin Associated Symptoms: No abdominal pain, No diaphoresis; fatigue; No fever/ chills; nausea/vomiting (nausea, no vomiting), shortness of breath (moderate SOB ), weakness (SCAR TIM STUDENT) Timing/Duration: 1 hour Severity/Quality: mild, pressure, other (breathing problems, tired/drowsy) Location: central Radiation: no radiation Prior CP/Workup: cardiac cath, echocardiography, heart attack (2009 with stent placement), 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 Associated Symptoms: shortness of breath (moderate SOB), weakness (JENNA ROCA MD) Allergies and Home Medications Allergies Coded Allergies: No Known Drug Allergies (Unverified , 10/15/17) Home Medications Albuterol Sulfate 1 Puff Puff, 2 PUFF IH Q4H PRN for SHORTNESS OF BREATH, ( Reported) 1 PUFF = 90 MCG Aspirin 81 Mg Tablet.dr, 81 MG PO DAILY, (Reported) Atenolol 25 Mg Tablet, 12.5 MG PO DAILY, (Reported) Atorvastatin Calcium 40 Mg Tablet, 40 MG PO HS, (Reported) Cetirizine HCl 10 Mg Tablet, 10 MG PO DAILY, (Reported) Fluticasone/Vilanterol 1 Each Blst.w.dev, 1 PUFF INH DAILY, (Reported) Furosemide 40 Mg Tablet, 40 MG PO UD, (Reported) 40MG EVERY OTHER DAY (QOD) Lisinopril 10 Mg Tablet, 5 MG PO DAILY, (Reported) Montelukast Sodium 10 Mg Tablet, 10 MG PO DAILY, (Reported) [place]-3/Dha/Epa/Fish Oil 1 Each Capsule, 2,000 MG PO BID, (Reported) TAKES 2 (1000MG) CAPSULES Oxymetazoline HCl 30 Ml [place], 1-2 SPRAYS NS HS, (Reported) Spironolactone 25 Mg Tablet, 25 MG PO DAILY, (Reported) Umeclidinium [place] 62.5 Mcg Blst.w.dev, 1 PUFF INH DAILY, (Reported) Warfarin Sodium 5 Mg Tablet, 5 MG PO MoTuThFrSa, (Reported) Warfarin Sodium 5 Mg Tablet, 7.5 MG PO SuWe, (Reported) TAKES 1 & 1/2 (5MG) TABLETS Patient Home Medication List Home Medication List Reviewed: Yes (SCAR TIM) Home Medication List Reviewed: Yes (JENNA ROCA MD) Review of Systems Review of Systems Constitutional: No chills, No diaphoresis, No fever; malaise, weakness EENTM: No Blurred Vision; Nose Congestion Respiratory: Cough, Shortness of Air (sudden onset this morning); Denies Wheezing Cardiovascular: Chest Pain; Denies Edema; Lightheadedness; Denies Palpitations Gastrointestinal: Denies Abdominal Pain, Denies Constipated; Diarrhea, Nausea; Denies Vomiting Genitourinary: Denies Frequency, Denies Pain Musculoskeletal: no symptoms reported Skin: no symptoms reported Psychiatric/Neurological: Denies Numbness, Denies Tingling; Weakness Hematologic/Lymphatic: Blood Clots (history of blood clots, on coumadin ) ( SCAR TIM) Constitutional: malaise, weakness EENTM: Nose Congestion; No Throat Pain Respiratory: Shortness of Air (sudden onset this morning); Denies Wheezing Cardiovascular: Chest Pain Gastrointestinal: Diarrhea, Nausea Musculoskeletal: no symptoms reported Skin: no symptoms reported (JENNA ROCA MD) All Other Systems Reviewed Negative Unless Noted: Yes (JENNA ROCA MD) Past Jvrmarf-Mwyora-Eqrtjp Hx Past Med/Social Hx: Reviewed Nursing Past Med/Soc Hx (SCAR TIM) Past Med/Social Hx: Reviewed Nursing Past Med/Soc Hx (JENNA ROCA MD) Patient Social History Alcohol Use: Occasionally Uses Number of Drinks Today: BB Alcohol Beverage of Choice: [place] Recreational Drug Use: No Type Used: Cigarettes 2nd Hand Smoke Exposure: Yes Recent Hopitalizations: No (SCAR TIM) Immunizations Up To Date Tetanus Booster (TDap): Less than 5yrs Date of Pneumonia Vaccine: Dec 31, 2012 Date of Influenza Vaccine: Apr 29, 2013 (SCAR TIM) Seasonal Allergies Seasonal Allergies: No (SCAR TIM) Past Medical History Surgeries: Yes (LIPOMA? REMOVED FROM HEAD, heart stents, jesenia filter) Coronary Stent Respiratory: Yes (hx pe, wears 4l o2 nc at noc @ home) Asthma, COPD Currently Using CPAP: No Currently Using BIPAP: No Cardiac: Yes (CARDIAC STENTS) Coronary Artery Disease, Deep Vein Thrombosis, Heart Attack, Hypertension Neurological: No Genitourinary: No Gastrointestinal: No Musculoskeletal: Yes Degenerate Disk Disease, Chronic Back Pain Endocrine: No HEENT: No Cancer: No Psychosocial: No Integumentary: No Blood Disorders: Yes (dvt) (SCAR TIM) Family Medical History Reviewed Nursing Family Hx (SCAR TIM) Reviewed Nursing Family Hx (JENNA ROCA MD) Cardiovascular disease 19 MOTHER FH: lung cancer 19 FATHER Heart Disease (SCAR TIM) Physical Exam Vital Signs Vital Signs - First Documented 08/27/18 08/27/18 07:07 08:34 Temp 97.0 Pulse 78 Resp 18 B/P (MAP) 133/ Pulse Ox 98 O2 Delivery Room Air (JENNA ROCA MD) Vital Signs Capillary Refill : (SCAR TIM STUDENT) Height, Weight, BMI Height: 6'0" Weight: 248lbs. 0oz. 112.941438fw; 32.5 BMI Method:Stated General Appearance: No Apparent Distress, WD/WN, Obese HEENT: PERRL/EOMI, TMs Normal, Normal ENT Inspection, Pharynx Normal, Moist Mucous Membranes Neck: Full Range of Motion, Normal Inspection, Supple Respiratory: Chest Non Tender, No Accessory Muscle Use, No Respiratory Distress , Decreased Breath Sounds (bilateral lower lobes), Wheezing (upper lobes R>L) Cardiovascular: Regular Rate, Rhythm, No Edema, No JVD, No Murmur, Normal Peripheral Pulses Gastrointestinal: Normal Bowel Sounds, Non Tender, Soft Extremity: Non Tender, No Calf Tenderness, No Pedal Edema Neurologic/Psychiatric: Alert, Oriented x3, No Motor/Sensory Deficits, Normal Mood/Affect Skin: Normal Color, Warm/Dry (SCAR TIM STUDENT) General Appearance: No Apparent Distress, WD/WN HEENT: PERRL/EOMI, Pharynx Normal Neck: Normal Inspection, Supple Respiratory: Chest Non Tender, No Accessory Muscle Use, No Respiratory Distress Cardiovascular: Regular Rate, Rhythm, No Edema, No Murmur, Normal Peripheral Pulses Gastrointestinal: Non Tender, Soft Extremity: Non Tender, No Calf Tenderness Neurologic/Psychiatric: Alert, Oriented x3 Skin: Normal Color, Warm/Dry (JENNA ROCA MD) Progress/Results/Core Measures Results/Orders Lab Results Laboratory Tests Test 08/27/18 07:10 08/27/18 09:56 Range/Units White Blood Count 9.7 4.3-11.0 10^3/uL Red Blood Count 4.92 4.35-5.85 10^6/uL Hemoglobin 16.0 13.3-17.7 G/DL Hematocrit 46 40-54 % Mean Corpuscular Volume 94 80-99 FL Mean Corpuscular Hemoglobin 33 25-34 PG Mean Corpuscular Hemoglobin Concent 35 32-36 G/DL Red Cell Distribution Width 14.0 10.0-14.5 % Platelet Count 300 130-400 10^3/uL Mean Platelet Volume 9.3 7.4-10.4 FL Neutrophils (%) (Auto) 55 42-75 % Lymphocytes (%) (Auto) 31 12-44 % Monocytes (%) (Auto) 11 0-12 % Eosinophils (%) (Auto) 3 0-10 % Basophils (%) (Auto) 1 0-10 % Neutrophils # (Auto) 5.4 1.8-7.8 X 10^3 Lymphocytes # (Auto) 3.0 1.0-4.0 X 10^3 Monocytes # (Auto) 1.0 0.0-1.0 X 10^3 Eosinophils # (Auto) 0.2 0.0-0.3 10^3/uL Basophils # (Auto) 0.1 0.0-0.1 10^3/uL Prothrombin Time 24.4 H 12.2-14.7 SEC INR Comment 2.2 H 0.8-1.4 Activated Partial Thromboplast Time 39 H 24-35 SEC Sodium Level 139 135-145 MMOL/L Potassium Level 4.0 3.6-5.0 MMOL/L Chloride Level 105 98-107 MMOL/L Carbon Dioxide Level 23 21-32 MMOL/L Anion Gap 11 5-14 MMOL/L Blood Urea Nitrogen 15 7-18 MG/DL Creatinine 1.23 0.60-1.30 MG/DL Estimat Glomerular Filtration Rate 59 BUN/Creatinine Ratio 12 Glucose Level 113 H 70-105 MG/DL Calcium Level 9.4 8.5-10.1 MG/DL Corrected Calcium 9.2 8.5-10.1 MG/DL Magnesium Level 2.1 1.8-2.4 MG/DL Total Bilirubin 1.0 0.1-1.0 MG/DL Aspartate Amino Transf (AST/SGOT) 30 5-34 U/L Alanine Aminotransferase (ALT/SGPT) 29 0-55 U/L Alkaline Phosphatase 72 40-136 U/L Myoglobin 82.2 10.0-92.0 NG/ML Troponin I < 0.028 < 0.028 <0.028 NG/ML B-Type Natriuretic Peptide 91.5 <100.0 PG/ML Total Protein 7.6 6.4-8.2 GM/DL Albumin 4.3 3.2-4.5 GM/DL Lipase 59 8-78 U/L (JENNA ROCA MD) Micro Results Microbiology 08/27/18 Influenza Types A,B Antigen (LIA) - Final, Complete (JENNA ROCA MD) My Orders Orders - JENNA ROCA MD Cbc With Automated Diff (08/27/18 07:13) Magnesium (08/27/18 07:13) Chest 1 View, Ap/Pa Only (08/27/18 07:13) Ekg Tracing (08/27/18 07:13) Cardiac Profile 1 (08/27/18 07:13) Comprehensive Metabolic Panel (08/27/18 07:13) Myoglobin Serum (08/27/18 07:13) Protime With Inr (08/27/18 07:13) Partial Thromboplastin Time (08/27/18 07:13) O2 (08/27/18 07:13) Monitor-Rhythm Ecg Trace Only (08/27/18 07:13) Lipid Panel (08/28/18 06:00) Saline Lock/Iv-Start (08/27/18 07:13) Lipase (08/27/18 07:13) Influenza A And B Antigens (08/27/18 07:13) BNP (08/27/18 07:13) Albuterol/Ipra Inhalation Soln (Duoneb I (08/27/18 07:30) Svn Small Volume Nebulizer (08/27/18 07:25) Ekg Tracing (08/27/18 09:34) Troponin I (08/27/18 09:34) (JENNA ROCA MD) Medications Given in ED Current Medications Medications Dose Ordered Sig/Rebekah Route Start Time Stop Time Status Last Admin Dose Admin Albuterol/ Ipratropium 3 ml ONCE ONCE INH 08/27/18 07:30 08/27/18 07:31 DC 08/27/18 08:34 3 ML (JENNA ROCA MD) Vital Signs/I&O 08/27/18 08/27/18 07:07 08:34 Temp 97.0 Pulse 78 Resp 18 B/P (MAP) 133/ Pulse Ox 98 95 O2 Delivery Room Air (JENNA ROCA MD) Progress Progress Note : Progress Note Chest pain protocol initiated along with influenza and duoneb treatment. No evidence to STEMI. Monitor patient. (SCAR TIM STUDENT) Progress Note : Progress Note I have seen and evaluated the patient and agree with above except as indicated. I have directed the plan of care. Patient is here with increased tiredness and some shortness of breath as well as weakness. Has been suffering from upper respiratory problems this weekend and has been taking TheraFlu. This morning he was on his way to work when he became quite tired. He was very concerned about driving and ultimately EMS was summoned. They did give nitroglycerin sublingual 1 which did significantly reduce his blood pressure. This resolved with fluid administration. Also gave aspirin 324 mg by mouth. We will do the chest pain rule out given his significant cardiac history and chest pain or set was initiated. We will also check influenza screen and complete 1 L normal saline initiated by EMS. Andreso kiel ordered. Monitor patient. 0830: Overall doing better and no acute findings thus far. We will repeat troponin at the two-hour carmen as well as EKG. Continue monitor. Patient agrees with plan. 1105: No acute findings on repeat EKG. Repeat troponin negative. Patient overall feeling better. Discharged home with return precautions. Patient verbalize understanding instructions and agreement with plan. (JENNA ROCA MD) Initial ECG Impression Date: Aug 27, 2018 Initial ECG Impression Time: 07:07 Initial ECG Rate: 74 Initial ECG Rhythm: Normal Sinus Comment Sinus rhythm. Left axis deviation. No evidence of STEMI. Old infarcts seen in inferior and lateral leads. Q waves in lateral leads changed from previous EKG on 10/16/17 but similar to 02/03/13. Interpreted by Dr. Roca. (SCAR TIM STUDENT) EKG : EKG Time: 09:57 Rate: 79 Rhythm: Normal Sinus Comment Sinus rhythm with left axis deviation. No evidence of ST elevation [place]. Similar to previous done earlier today. Interpreted by me. (JENNA ROCA MD) Diagnostic Imaging Diagonstic Imaging: Xray Plain Films/CT/US/NM/MRI: chest Comments [facility] [place]. [place], [place] NAME: MARTINE LINDSEY Dona [facility] REC#: [id number] PT STATUS: REG ER : 1955 PHYSICIAN: JENNA ROCA MD ADMIT DATE: 08/27/18/ER Draft Date of Exam:08/27/18 CHEST 1 VIEW, AP/PA ONLY Indication: Weakness. Findings: The lungs are clear. The heart size and vascularity are normal. There is no effusion or pneumothorax. Impression: No acute-appearing abnormality. Dictated on workstation # [id number] Dict: 08/27/18 0740 Trans: 08/27/18 0742 [facility] [id number] Interpreted by: VERNON PARR Electronically signed by: (SCAR TIM STUDENT) Departure Impression Primary Impression: Chest pain Qualified Codes: R07.9 - Chest pain, unspecified Additional Impression: Upper respiratory infection Qualified Codes: J06.9 - Acute upper respiratory infection, unspecified Disposition: 01 HOME, SELF-CARE Condition: Improved Departure-Patient Inst. Decision time for Depature: 11:14 (JENNA ROCA MD) Referrals: ANTHONY HAQ MD (PCP/Family) Primary Care Physician Patient Instructions: Chest Pain (DC), Viral Upper Respiratory Infection, Adult (DC) Add. Discharge Instructions: All discharge instructions reviewed with patient and/or family. Voiced understanding. Drink plenty of fluids and get some rest. You may take Tylenol 650 mg every 6 hours as needed for fever or pain. Be careful with ouof-qrk-cywzjqb cough medicines or cold medicines as they may make you drowsy and may interfere with your medications. Follow-up with your Dr. in a few days for recheck. You may use sure prescribed inhaler as directed. Return for worsening, fever, vomiting, weakness, breathing problems or other concerns as needed. Copy Copies To 1: JAEL ASHER MD FACP [facility] CCDS Copies To 2: ANTHONY HAQ MD, MARY K STUDENT Aug 27, 2018 07:35 JENNA ROCA MD Aug 27, 2018 08:38
[2018-08-27 07:41] LABS: ALANINE AMINOTRANSFERASE 29 U/L (0-55); ALBUMIN 4.3 GM/DL (3.2-4.5); ALKALINE PHOSPHATASE 72 U/L (40-136); BUN/CREATININE RATIO 12; CALCIUM 9.4 MG/DL (8.5-10.1); CARBON DIOXIDE 23 MMOL/L (21-32); CHLORIDE 105 MMOL/L (98-107); CREATININE SERUM 1.23 MG/DL (0.60-1.30); GFR ESTIMATED 59; GLUCOSE 113 MG/DL (70-105); LIPASE 59 U/L (8-78); MAGNESIUM 2.1 MG/DL (1.8-2.4); SODIUM 139 MMOL/L (135-145); TOTAL PROTEIN 7.6 GM/DL (6.4-8.2)
--- NOTE | 2018-08-27 07:42 | Diagnostic Imaging Report ---
Indication: Weakness. Findings: The lungs are clear. The heart size and vascularity are normal. There is no effusion or pneumothorax. Impression: No acute-appearing abnormality. Dictated by: Dictated on workstation # [id number]
[2018-08-27 07:48] LABS: MYOGLOBIN SERUM 82.2 NG/ML (10.0-92.0)
--- NOTE | 2018-08-27 08:40 | NUR ---
EMS FLUIDS IN
--- NOTE | 2018-08-27 09:56 | NUR ---
2ND TROPONIN DRAWN
[2018-08-27 11:51] VITALS: BP 138/88
== END 2018-08-27 11:51 | disposition home or self-care (01) ==
LOC: EDUNIT# 07:07 → ER 07:09
DX: R07.89 Other chest pain (principal); J06.9 Acute upper respiratory infection, unspecified; I25.2 Old myocardial infarction; J44.9 Chronic obstructive pulmonary disease, unspecified; I25.10 Atherosclerotic heart disease of native coronary artery without angina pectoris; I10 Essential (primary) hypertension; Z82.49 Family history of ischemic heart disease and other diseases of the circulatory system; Z80.1 Family history of malignant neoplasm of trachea, bronchus and lung; Z86.718 Personal history of other venous thrombosis and embolism; Z99.81 Dependence on supplemental oxygen; Z95.5 Presence of coronary angioplasty implant and graft; Z77.22 Contact with and (suspected) exposure to environmental tobacco smoke (acute) (chronic); Z79.02 Long term (current) use of antithrombotics/antiplatelets; Z79.82 Long term (current) use of aspirin; Z79.51 Long term (current) use of inhaled steroids; Z79.01 Long term (current) use of anticoagulants
CPT/HCPCS: 36415; 71045; 80053; 83690; 83735; 83874; 83880; 84484; 85025; 85610; 85730; 87804; 93005; 93041; 94640

== ENCOUNTER → 2018-11-01 | Outpatient (CLI) | payer MEDICARE, OTHER ==
[2018-11-01 08:11] LABS: ALANINE AMINOTRANSFERASE 24 U/L (0-55); ALBUMIN 4.1 GM/DL (3.2-4.5); ALKALINE PHOSPHATASE 61 U/L (40-136); BILIRUBIN,TOTAL 0.7 MG/DL (0.1-1.0); BUN/CREATININE RATIO 13; CALCIUM 9.2 MG/DL (8.5-10.1); CARBON DIOXIDE 23 MMOL/L (21-32); CHLORIDE 106 MMOL/L (98-107); CHOLESTEROL 160 MG/DL (< 200); CREATININE SERUM 1.07 MG/DL (0.60-1.30); GFR ESTIMATED > 60; GLUCOSE 104 MG/DL (70-105); HDL CHOLESTEROL 52 MG/DL (40-60); POTASSIUM 4.1 MMOL/L (3.6-5.0); SODIUM 141 MMOL/L (135-145); TRIGLYCERIDES 95 MG/DL (<150); VLDL CHOLESTEROL 19 MG/DL (5-40)
== END ==
LOC: LAB 07:41
PROVIDERS: ATTEND Nurse Practitioner Family
DX: E78.5 Hyperlipidemia, unspecified (principal); I25.10 Atherosclerotic heart disease of native coronary artery without angina pectoris
CPT/HCPCS: 36415; 80053; 80061

== ENCOUNTER → 2018-11-01 | Outpatient (CLI) | payer MEDICARE, OTHER ==
[~2018-11-01] MED LIST changes: +RT-ALBUTEROL SULF 2.5 MG/3 ML PRE-MIX VIAL INH ONE
== END ==
LOC: RT 07:43
PROVIDERS: ATTEND Nurse Practitioner Family
DX: J44.9 Chronic obstructive pulmonary disease, unspecified (principal); J30.9 Allergic rhinitis, unspecified; R06.00 Dyspnea, unspecified; R09.02 Hypoxemia; Z72.0 Tobacco use
CPT/HCPCS: 94060; 94726; 94729

== ENCOUNTER → 2018-11-22 | Outpatient (CLI) | payer MEDICARE, OTHER ==
[~2018-11-22] MED LIST changes: -RT-ALBUTEROL SULF 2.5 MG/3 ML PRE-MIX VIAL INH ONE
--- NOTE | 2018-11-22 11:37 | Diagnostic Imaging Report ---
PROCEDURE: CT chest without contrast. TECHNIQUE: Multiple contiguous axial images were obtained through the chest without the use of intravenous contrast. Auto Exposure Controls were utilized during the CT exam to meet ALARA standards for radiation dose reduction. INDICATION: COPD. COMPARISON: Comparison is made with prior CT angiogram of the chest from 02/05/2013. FINDINGS: Low-dose protocol was utilized. Evaluation of the pulmonary parenchyma does show centrilobular emphysematous changes. Tiny subpleural nodule in the right upper lobe laterally image 131 is noted measuring 3 mm. There is some scarring in the lateral aspect of the left upper lobe subpleural location. There is also some lingular linear scarring. No discrete mass is detected. There is dependent atelectasis in both bases. No definite axillary lymphadenopathy is seen. No definite mediastinal or hilar lymphadenopathy is detected. There are coronary arterial calcifications. No pericardial or pleural fluid is detected. Patient appears to have bilateral gynecomastia. Upper abdomen is grossly unremarkable. IMPRESSION: Centrilobular emphysematous changes. There is a tiny subpleural right upper lobe pulmonary nodule. Study is otherwise unremarkable. Dictated by: Dictated on workstation # [id number]
== END ==
LOC: RAD 08:03
PROVIDERS: ATTEND Nurse Practitioner Family
DX: J43.2 Centrilobular emphysema (principal); J30.9 Allergic rhinitis, unspecified; Z72.0 Tobacco use
CPT/HCPCS: 71250

== ENCOUNTER → 2019-05-05 | Outpatient (CLI) | payer MEDICARE, OTHER ==
[2019-05-05 08:03] LABS: ALANINE AMINOTRANSFERASE 19 U/L (0-55); ALBUMIN 3.8 GM/DL (3.2-4.5); ALKALINE PHOSPHATASE 56 U/L (40-136); BUN/CREATININE RATIO 13; CALCIUM 8.7 MG/DL (8.5-10.1); CARBON DIOXIDE 24 MMOL/L (21-32); CHLORIDE 106 MMOL/L (98-107); CHOLESTEROL 159 MG/DL (< 200); CREATININE SERUM 1.15 MG/DL (0.60-1.30); GFR ESTIMATED > 60; GLUCOSE 101 MG/DL (70-105); HDL CHOLESTEROL 51 MG/DL (40-60); POTASSIUM 4.3 MMOL/L (3.6-5.0); SODIUM 140 MMOL/L (135-145); TOTAL PROTEIN 6.5 GM/DL (6.4-8.2); TRIGLYCERIDES 101 MG/DL (<150); VLDL CHOLESTEROL 20 MG/DL (5-40)
== END ==
LOC: LAB 07:34
PROVIDERS: ATTEND Nurse Practitioner Family
DX: I25.10 Atherosclerotic heart disease of native coronary artery without angina pectoris (principal); E78.5 Hyperlipidemia, unspecified
CPT/HCPCS: 36415; 80053; 80061

== ENCOUNTER → 2019-10-22 | Outpatient (CLI) | payer MEDICARE, OTHER ==
[~2019-10-22] MED LIST changes: -CETI10TA20 PO; +CETI10TA21 PO; -MONT10TA24 PO; +MONT10TA26 PO
[2019-10-22 08:08] LABS: CHLORIDE 109 MMOL/L (98-107); POTASSIUM 4.4 MMOL/L (3.6-5.0); SODIUM 139 MMOL/L (135-145)
[2019-10-22 08:09] LABS: ALBUMIN 3.8 GM/DL (3.2-4.5)
[2019-10-22 08:10] LABS: CALCIUM 9.2 MG/DL (8.5-10.1); TRIGLYCERIDES 100 MG/DL (<150); VLDL CHOLESTEROL 20 MG/DL (5-40)
[2019-10-22 08:11] LABS: GLUCOSE 112 MG/DL (70-105); TOTAL PROTEIN 6.6 GM/DL (6.4-8.2)
[2019-10-22 08:12] LABS: CARBON DIOXIDE 20 MMOL/L (21-32)
[2019-10-22 08:13] LABS: BILIRUBIN,TOTAL 0.6 MG/DL (0.1-1.0)
[2019-10-22 08:15] LABS: ALKALINE PHOSPHATASE 57 U/L (40-136); CREATININE SERUM 1.09 MG/DL (0.60-1.30); GFR ESTIMATED > 60
[2019-10-22 08:16] LABS: BUN/CREATININE RATIO 15; CHOLESTEROL 147 MG/DL (< 200)
[2019-10-22 08:17] LABS: HDL CHOLESTEROL 48 MG/DL (40-60)
[2019-10-22 08:18] LABS: ALANINE AMINOTRANSFERASE 20 U/L (0-55)
== END ==
LOC: LAB 07:29
PROVIDERS: ATTEND Nurse Practitioner Family
DX: E78.5 Hyperlipidemia, unspecified (principal); I25.10 Atherosclerotic heart disease of native coronary artery without angina pectoris
CPT/HCPCS: 36415; 80053; 80061

== ENCOUNTER → 2019-12-11 | Outpatient (CLI) | payer MEDICARE, OTHER ==
--- NOTE | 2019-12-11 16:48 | Diagnostic Imaging Report ---
EXAMINATION: CT Chest without contrast (lung screening). TECHNIQUE: Multiple contiguous axial images were obtained through the chest without the use of intravenous contrast according to lung cancer screening protocol. All CT scans use one or more of the following dose optimizing techniques: automated exposure control, MA and/or KvP adjustment based on a patient size and exam type, or iterative reconstruction. HISTORY: 50 pack year history of smoking. COMPARISON: 11/22/2018 FINDINGS: There is no edema or pneumonia. No pleural effusion. No pneumothorax. No suspicious nodules. There is mild atelectasis in the right lung base. Heart size is normal. There are mild coronary artery calcifications. No pericardial effusion. Aorta is normal in caliber. There is no axillary or supraclavicular lymphadenopathy. There is no mediastinal lymphadenopathy. Limited views of the upper abdomen are unremarkable. There are no suspicious osseus lesions. IMPRESSION: 1. No suspicious pulmonary nodules. LUNG-RADS CATEGORY: 1 MODIFIER: None. Dictated by: Dictated on workstation # [id number]
== END ==
LOC: RAD 15:17
PROVIDERS: ATTEND Nurse Practitioner Family
DX: Z87.891 Personal history of nicotine dependence (principal)

== ENCOUNTER → 2020-08-03 | Outpatient (CLI) | payer MEDICARE, OTHER ==
[~2020-08-03] MED LIST changes: +ASPI-1238 PO; -ASPI-983 PO; -CETI10TA21 PO; +CETI10TA49 PO; -MONT10TA26 PO; +MONT10TA97 PO
== END ==
LOC: CARD 09:00
PROVIDERS: ATTEND Nurse Practitioner Family
DX: I25.10 Atherosclerotic heart disease of native coronary artery without angina pectoris (principal); I25.5 Ischemic cardiomyopathy; I51.7 Cardiomegaly
CPT/HCPCS: 93306

== ENCOUNTER → 2020-08-10 | Outpatient (CLI) | payer MEDICARE, OTHER ==
[~2020-08-10] VITALS: Ht 182 cm; Wt 109.0 kg
[~2020-08-10] MED LIST changes: +CATHETER FLUSH 10 ML SYR IV PRN; -LISI10TA2 PO; +LISI10TA25 PO; +MONT10TA32 PO; -MONT10TA97 PO; +REGADENOSON 0.4 MG/5 ML SYR (LEXISCAN) IV ONE
[2020-08-10 08:53] VITALS: BP 138/82
--- NOTE | 2020-08-12 10:43 | STRESS TEST ---
DATE OF SERVICE: 08/10/2020 RESTING AND POST REGADENOSON TECHNETIUM-99M TETROFOSMIN SPECT CT IMAGING ORDERING PHYSICIAN: Sigrid Simpson APRN PRIMARY PHYSICIAN: Dr. Montez. CLINICAL DIAGNOSIS: Coronary artery disease. Baseline images were carried out after injection of 10.7 mCi of technetium-99m Tetrofosmin. This was followed by 0.4 mg Regadenoson and 30.5 mCi of technetium-99m Tetrofosmin for stress imaging. The electrocardiogram showed sinus rhythm at baseline. It did not change significantly with the Regadenoson infusion. The patient noted mild shortness of breath following Regadenoson infusion, which resolved in a few minutes. Review of images at rest and following stress indicates a predominantly fixed inferolateral perfusion defect. Gated images show inferolateral akinesis. Left ventricular ejection fraction is calculated to be 37%. Left ventricular end diastolic volume 156 mL. TID is absent (1.15). CONCLUSIONS: 1. This study indicates an inferolateral myocardial infarction that does not exhibit significant ischemia. 2. Inferolateral akinesis. 3. Impairment of global left ventricular systolic function with a calculated ejection fraction of 37%. 4. Cardiomegaly. Job ID: [id number] DocumentID: [id number] Dictated Date: 08/12/2020 10:03:33 Building Rental Superintendent Date: 08/12/2020 10:42:15 Dictated By: JAEL ASHER MD, MA, FACP, FACC,
== END ==
LOC: CARD 07:45
PROVIDERS: ATTEND Nurse Practitioner Family
DX: I25.10 Atherosclerotic heart disease of native coronary artery without angina pectoris (principal); I25.5 Ischemic cardiomyopathy; I51.7 Cardiomegaly
CPT/HCPCS: 78452; 93017; A9502

== ENCOUNTER 2020-08-19 05:33 | Outpatient (RCR) | payer MEDICARE, OTHER ==
[~2020-08-19] VITALS: Ht 185.4 cm; Wt 118.0 kg
[~2020-08-19 05:33] MED LIST changes: -CATHETER FLUSH 10 ML SYR IV PRN; -REGADENOSON 0.4 MG/5 ML SYR (LEXISCAN) IV ONE
== END 2020-08-19 14:28 | disposition home or self-care (01) ==
LOC: PREOP 05:33
PROVIDERS: ATTEND Surgery
DX: Z01.812 Encounter for preprocedural laboratory examination (principal); R19.5 Other fecal abnormalities; Z20.822 Contact with and (suspected) exposure to COVID-19
CPT/HCPCS: 87635

== ENCOUNTER 2020-08-23 07:19 | Day surgery (SDC) | payer MEDICARE, OTHER ==
[~2020-08-23] VITALS: Ht 185.4 cm; Wt 118.0 kg
[2020-08-23] MEDS ORDERED: LACTATED RINGERS 1,000 ML IV ONE (07:34)
[2020-08-23] MEDS ORDERED: LACTATED RINGERS 1,000 ML IV STA (07:38)
[2020-08-23] MEDS ORDERED: MIDAZOLAM 2 MG/2 ML (VERSED) VIAL ONE (07:46)
[2020-08-23] MEDS ORDERED: PROPOFOL INJECTION 50 ML IV ONE (07:46)
[2020-08-23 07:55] VITALS: BP 126/82
--- NOTE | 2020-08-23 08:11 | Progress Note-Pre Operative ---
Pre-Operative Progress Note H&P Reviewed The H&P was reviewed, patient examined and no changes noted. Time Seen by Provider: 08:07 Date H&P Reviewed: Aug 23, 2020 Time H&P Reviewed: 08:08 Pre-Operative Diagnosis: + ColKELSEA Luis DO Aug 23, 2020 08:11
[2020-08-23 09:15] VITALS: BP 127/68
[2020-08-23 09:20] VITALS: BP 125/74
--- NOTE | 2020-08-23 09:21 | Endoscopy Discharge Instruct ---
Endo Procedure/Findings Findings 1.: Polyp 2.: Diverticulosis 3.: Internal Hemorrhoids Discharge Instructions - Activity: You might feel a little sleepy until tomorrow. This is due to the medicine you received to relax you. Until tomorrow, you should: NOT drive a car, operate machinery or power tools. NOT drink any alcoholic beverages. NOT make any important decisions or sign importortant papers. Do not return to work until tomorrow, unless otherwise instructed. Resume previous activities tomorrow. Diet: Start by taking liquids. If you tolerate liquids, advance to solid food. 1.: Colonscopy in 3 years Notify Physician - If you experience excessive bleeding, unusual abdominal pain, fever, or chest pain, contact your doctor immediately. KELSEA COON DO Aug 23, 2020 09:21
--- NOTE | 2020-08-23 09:21 | Progress Note-Post Operative ---
Post-Operative Progess Note Surgeon (s)/Draw Hand (s) Surgeon KELSEA COON DO Draw Hand: INOCENCIA Kirk Pre-Operative Diagnosis + Cologuard Post-Operative Diagnosis Polyps Appendiceal mass Diverticula Int Hemorrhoids Procedure & Operative Findings Date of Procedure 08/23/20 Procedure Performed/Findings Colon with snare Colon with hot bx Anesthesia Type IV sedation by COOK RESTAURANT Estimated Blood Loss Estimated blood loss (mL): scant Specimens/Packing Specimens Removed Transverse colon polyp Appy mass Asc colon polyp sigmoid polyp rectal polyp KELSEA COON DO Aug 23, 2020 09:21
[2020-08-23 10:00] VITALS: BP 135/86
[2020-08-23 10:03] VITALS: BP 135/86
--- NOTE | 2020-08-23 13:12 | Anesthesia-General Post-Op ---
MAC Patient Condition Mental Status/LOC: Same as Preop Cardiovascular: Satisfactory Nausea/Vomiting: Absent Respiratory: Satisfactory Pain: Controlled Complications: Absent Post Op Complications Complications None Follow Up Care/Instructions Patient Instructions None needed. Anesthesiology Discharge Order Discharge Order Patient is doing well, no complaints, stable vital signs, no apparent adverse anesthesia problems. No complications reported per nursing. JAYSHREE SCHMIDT CRNA Aug 23, 2020 13:12
--- NOTE | 2020-08-23 23:06 | OPERATIVE REPORT ---
DATE OF SERVICE: PREOPERATIVE DIAGNOSIS: Positive Cologuard. POSTOPERATIVE DIAGNOSES: 1. Colon polyps. 2. Diverticula. 3. Internal hemorrhoids. PROCEDURES: 1. Colonoscopy with snare polypectomy. 2. Colonoscopy with hot biopsy. SURGEON: Pete Black, SENIOR PAYROLL MANAGER: Neo Anand, MS3. SPECIMEN: Polyp in the transverse colon, a biopsy of an appendiceal mass as well as some mucus from this appendiceal mass, ascending colon polyps, sigmoid polyp and rectal polyp. BLOOD LOSS: Scant. FLUIDS: Per anesthesia. POSTOPERATIVE CONDITION: Stable. INDICATION FOR PROCEDURE: The patient is a 65-year-old male who had a positive Cologuard and needed a colonoscopy. FINDINGS: The patient had multiple polyps as well as what looked like a mass on the appendix with possibly some mucus in the middle. He had some diverticula and some internal hemorrhoids as well. PROCEDURE NOTE: After informed consent was obtained, the patient was brought to the endoscopy suite, placed in bed in left lateral decubitus position. He was administered IV sedation by the SUPERVISOR CAR INSTALLATIONS who then monitored her vitals the entire time, heart rate, blood pressure and pulse ox and the scope was inserted. On the way in, noted some diverticula in the descending colon; into the transverse colon, saw some small polyp. Elected to do a snare polypectomy to completely remove this and then continued down all the way about 100 cm to the cecum, took a picture of appendiceal orifice, which looked like he had a mass on it. Elected to do a hot biopsy of this, got 2 pieces of the mass surrounding the appendix and also got what looked like a little bit of mucus from the inner portion of the appendix. This was sent to pathology. At this point, then slowly withdrew the scope insufflating to look circumferentially at the patterson looking the cecum, up the ascending colon. In the ascending colon, saw 2 polyps, I elected to do a hot biopsy of these to be able to remove and there were too flat to able to get them with a snare, so had to do a hot biopsy, then continued up to the hepatic flexure and into the transverse colon, then down to the splenic flexure, into the descending colon, then in the sigmoid, saw another large polyp, I elected to do a snare polypectomy of this and then again in the rectum, saw another large polyp, I elected to do a snare polypectomy of this to remove these completely. Retroflexed the scope in the rectal vault, saw some minimal internal hemorrhoids, took a picture and then removed the scope. The patient tolerated the procedure. He was recovered in the endoscopy suite. Job ID: [id number] DocumentID: [id number] Dictated Date: 08/23/2020 22:19:36 Core Composer Machine Tender Date: 08/23/2020 23:05:05 Dictated By: PETE BLACK DO
== END 2020-08-23 10:03 | disposition home or self-care (01) ==
LOC: ENDO 07:19
PROVIDERS: ATTEND Surgery
DX: D12.3 Benign neoplasm of transverse colon (principal); D12.2 Benign neoplasm of ascending colon; K62.1 Rectal polyp; K63.5 Polyp of colon; K57.30 Diverticulosis of large intestine without perforation or abscess without bleeding; K64.8 Other hemorrhoids; E78.5 Hyperlipidemia, unspecified; I25.10 Atherosclerotic heart disease of native coronary artery without angina pectoris; I11.0 Hypertensive heart disease with heart failure; I50.22 Chronic systolic (congestive) heart failure; J44.9 Chronic obstructive pulmonary disease, unspecified; J30.9 Allergic rhinitis, unspecified; F17.210 Nicotine dependence, cigarettes, uncomplicated; E78.00 Pure hypercholesterolemia, unspecified; E66.9 Obesity, unspecified; Z68.34 Body mass index [BMI] 34.0-34.9, adult; Z79.899 Other long term (current) drug therapy; Z79.82 Long term (current) use of aspirin; Z79.01 Long term (current) use of anticoagulants; Z95.5 Presence of coronary angioplasty implant and graft; Z80.9 Family history of malignant neoplasm, unspecified

== ENCOUNTER 2020-09-06 05:29 | Outpatient (RCR) | payer MEDICARE, OTHER ==
[~2020-09-06] VITALS: Ht 182.9 cm; Wt 109.1 kg
== END 2020-09-06 10:23 | disposition home or self-care (01) ==
LOC: PREOP 05:29
PROVIDERS: ATTEND Surgery
DX: Z01.812 Encounter for preprocedural laboratory examination (principal); K38.8 Other specified diseases of appendix; Z20.822 Contact with and (suspected) exposure to COVID-19
CPT/HCPCS: 87635

== ENCOUNTER 2020-09-08 07:52 | Day surgery (SDC) | payer MEDICARE, OTHER ==
[~2020-09-08] VITALS: Ht 182.9 cm; Wt 109.1 kg
[2020-09-08] VITALS (11 sets, daily range): BP systolic 104–140; BP diastolic 55–94
[2020-09-08] MEDS ORDERED: LIDOCAINE/EPI 1%-1:100,000 (XYLOCAINE) 50 ML ONE (09:00)
[2020-09-08 09:03] LABS: BASOPHILS # (AUTO) 0.1 10^3/uL (0.0-0.1); BASOPHILS % (AUTO) 1 % (0-10); EOSINOPHILS # (AUTO) 0.3 10^3/uL (0.0-0.3); EOSINOPHILS % (AUTO) 3 % (0-10); HEMATOCRIT 44 % (40-54); HEMOGLOBIN 14.8 g/dL (13.3-17.7); LYMPHOCYTES # (AUTO) 2.2 10^3/uL (1.0-4.0); LYMPHOCYTES % (AUTO) 27 % (12-44); MEAN CORPUSCULAR HEMOGLOBIN 32 pg (25-34); MEAN CORPUSCULAR HGB CONC 34 g/dL (32-36); MEAN CORPUSCULAR VOLUME 96 fL (80-99); MEAN PLATELET VOLUME 9.3 fL (9.0-12.2); MONOCYTES # (AUTO) 0.7 10^3/uL (0.0-1.0); MONOCYTES % (AUTO) 9 % (0-12); NEUTROPHILS # (AUTO) 4.8 10^3/uL (1.8-7.8); NEUTROPHILS % (AUTO) 59 % (42-75); PLATELET COUNT 228 10^3/uL (130-400); WHITE BLOOD COUNT 8.1 10^3/uL (4.3-11.0)
[2020-09-08] MEDS: LACTATED RINGERS 1,000 ML IV PRN ×2 (09:12→10:25)
[2020-09-08] MEDS ORDERED: metroNIDAZOLE 500MG/100ML IVPB 100 ML IV ONE (09:15)
[2020-09-08] MEDS ORDERED: ceFAZolin 2 GM IV Premixed 50 ML IV ONE (09:15)
[2020-09-08] MEDS ORDERED: metroNIDAZOLE 500MG/100ML IVPB 100 ML ONE (09:26)
[2020-09-08] MEDS ORDERED: ceFAZolin 2 GM IV Premixed 50 ML ONE (09:26)
--- NOTE | 2020-09-08 09:28 | Progress Note-Pre Operative ---
Pre-Operative Progress Note H&P Reviewed The H&P was reviewed, patient examined and no changes noted. Time Seen by Provider: 09:25 Date H&P Reviewed: Sep 08, 2020 Time H&P Reviewed: 09:26 Pre-Operative Diagnosis: appendiceal polyp KELSEA COON DO Sep 08, 2020 09:28
[2020-09-08] MEDS ORDERED: MIDAZOLAM 2 MG/2 ML (VERSED) VIAL ONE (09:32)
[2020-09-08] MEDS ORDERED: proPOfol 200 MG/20 ML (DIPRIVAN) VIAL IV ONE (09:32)
[2020-09-08] MEDS ORDERED: SEVOFLURANE (ULTANE) 15 ML INHAL SOLN ONE (09:32)
[2020-09-08] MEDS ORDERED: fentaNYL INJ 100 MCG/2 ML AMP ONE (09:32)
[2020-09-08] MEDS ORDERED: LIDOCAINE PF 2% 5 ML (XYLOCAINE) VIAL ONE (09:32)
[2020-09-08] MEDS ORDERED: ROCURONIUM 10 MG/ML 5 ML SYRINGE IV ONE (09:32)
[2020-09-08] MEDS ORDERED: ONDANSETRON 4 MG/2 ML (SDV) Z0FRAN ONE (09:37)
--- NOTE | 2020-09-08 10:46 | Progress Note-Post Operative ---
Post-Operative Progess Note Surgeon (s)/Lead Ramp Service Man (s) Surgeon KELSEA COON DO Lead Ramp Service Man: Faby Pre-Operative Diagnosis appendiceal polyp Post-Operative Diagnosis same pending path Direct Left inguinal hernia Procedure & Operative Findings Date of Procedure 09/08/20 Procedure Performed/Findings PROCEDURE: Laparoscopic Partial Cecectomy with appendectomy. COMPLICATIONS: None. 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 These are aggressive polyps that turn into cancer. I didn't think I would be able to get all of the polyp, because it obscured the opening. I discussed risk and benefits of laparoscopic partial cecectomy with appendectomy and all indicated procedures. The patient understands the risks and benefits and wishes to proceed. Consent was signed on the chart. DESCRIPTION OF PROCEDURE: The patient was taken to the operating suite, prepped and draped in a sterile fashion. Timeout was performed. Local anesthetic was infiltrated just above the umbilicus and 11-blade scalpel was used to make a skin incision. Cautery was used to dissect down to the fascia and scored. Kochers were used to grasp and elevate it and the abdomen was then entered. A 0 Vicryl was placed in a [id number] fashion for closure at the end of the case. The balloon trocar was inserted into the abdomen and pneumoperitoneum was achieved. Under direct visualization of the laparoscope, a 5 mm trocar was placed in the suprapubic region and a 5 mm trocar was placed in the left lower quadrant. Appendix was located. The base of the appendix was dissected around. Made sure to identify the terminal ileum and where it entered the cecum. Stayed away from this and placed the Endo-MARITZA stapler across the distal portion of the cecum; thereby removing this and doing technically a partial colon resection. The mesoappendix had been divided prior to this, making sure everything was freed up. The distal portion of the cecum along with the appendix were then placed in an Endobag and removed through the 12 mm trocar site. The abdomen was then irrigated and suctioned. No other pathology noted. The abdomen was then desufflated and the trocars were removed. The 0 Vicryl placed at the beginning of the case was then tied closing the 12 mm fascial defect. The skin was then closed using 4-0 Monocryl in a subcuticular fashion. The abdomen was then washed and dried and Skin Affix was placed over the incisions. The patient tolerated the procedure well without any complications and was taken to the recovery room in stable condition. Dr. Hobbs assisted on this case helping to make incisions, close incisions, identify anatomy and hold anatomy out of the way. Anesthesia Type GET Estimated Blood Loss Estimated blood loss (mL): scant Specimens/Packing Specimens Removed portion of cecum and appendix KELSEA COON DO Sep 08, 2020 10:46
[2020-09-08] MEDS ORDERED: ACHD5005 PO (10:47)
--- NOTE | 2020-09-08 10:48 | Discharge Inst-Surgical ---
Discharge Inst-Surgical Depart Medication/Instructions New, Converted or Re-Newed RX: RX Given to Pt/Family Patient Instructions Follow up Appt: Make appointment for 1 week. [phone] Instructions: No lifting greater than 20 pounds. No strenuous activity. May shower in 24 hours, no tub bath or soaking. Use incentive spirometer at home as directed. No Smoking Skin/Wound Care: May remove bandages in am. You need to leave the Dermabond on incision it will fall off on it's own. Symptoms to Report: Appetite Changes, Extremity Discoloration, Numbness/Tingling, Swelling Increased, Bleeding Excessive, Eyesight Changes, Pain Increased, Urine Color Change, Constipation(Persistent), Fever over 101 degree F, Pain/Pressure in chest, Urinating Difficulty, Cough Up/Vomit Blood, Heart Beat Irreg/Pounding, Pain/Pressure in jaw, Cramps in feet or legs, Lightheadedness, Pain/Pressure in shoulder, Diarrhea(Persistent), Memory Changes Suddenly, Questions/Concerns, Weight gain consecutive days, Dizziness/Fainting, Nausea/Vomiting, Shortness of Breath, Weight gain over 2 pounds If questions or concerns contact your physician Or seek help at emergency department. Activity Activity as Tolerated: Yes Activity Instructions: Avoid Stress to Incision Driving Instructions: No Driving/Refer to Dr. Kaur Discharge Diet: No Restrictions Diet After 24 Hours: Clear Liquid if Nauseous If Any Problems/Questions/Issu: Contact Your Physician, Go to Emergency Room Skin/Wound Care Infection Signs and Symptoms: Increased Redness, Foul Odor of Wound, Increased Drainage, Skin Itchy or Has a Rash, Increased Swelling, Temperature Above 101 F Bathing Instructions: Shower Stitches/Ella/Dermabond Dis: Dermabond Ice Pack: Ice On and Off Site KELSEA COON DO Sep 08, 2020 10:48
--- NOTE | 2020-09-08 10:59 | Anesthesia-General Post-Op ---
General Patient Condition Mental Status/LOC: Same as Preop Cardiovascular: Satisfactory Nausea/Vomiting: Absent Respiratory: Satisfactory Pain: Controlled Complications: Absent Post Op Complications Complications None Follow Up Care/Instructions Patient Instructions None needed. Anesthesia/Patient Condition Patient Condition Patient is doing well, no complaints, stable vital signs, no apparent adverse anesthesia problems. No complications reported per nursing. DEVYN LUNA CRNA Sep 08, 2020 10:59
[2020-09-08] MEDS ORDERED: ONDANSETRON 4 MG/2 ML (SDV) Z0FRAN IVP PRN (11:00)
[2020-09-08] MEDS ORDERED: HYDROmorphone 2 MG/ML VIAL (DILAUDID) IV ONE (11:00)
[2020-09-08] MEDS ORDERED: PROMETHAZINE INJ 25 MG/ML (PHENERGAN) AMP IVP ONE (11:00)
[2020-09-08] MEDS ORDERED: morphine INJ 10 MG/ML 1ML (SYR OR VIAL) IVP ONE (11:00)
[2020-09-08] MEDS ORDERED: MEPERIDINE (DEMEROL) INJ 50 MG/ML IVP ONE (11:00)
[2020-09-08] MEDS ORDERED: morphine INJ 10 MG/ML 1ML (SYR OR VIAL) ONE (11:15)
== END 2020-09-08 13:00 | disposition home or self-care (01) ==
LOC: SDC 07:52 → EDSTATUS 09:50 → SDC 13:00
PROVIDERS: ATTEND Surgery
DX: C18.1 Malignant neoplasm of appendix (principal); K40.90 Unilateral inguinal hernia, without obstruction or gangrene, not specified as recurrent; I10 Essential (primary) hypertension; I25.10 Atherosclerotic heart disease of native coronary artery without angina pectoris; J44.9 Chronic obstructive pulmonary disease, unspecified; M19.90 Unspecified osteoarthritis, unspecified site; E78.5 Hyperlipidemia, unspecified; I11.0 Hypertensive heart disease with heart failure; I50.22 Chronic systolic (congestive) heart failure; D12.2 Benign neoplasm of ascending colon; D12.3 Benign neoplasm of transverse colon; D12.5 Benign neoplasm of sigmoid colon; K62.1 Rectal polyp; K64.0 First degree hemorrhoids; K57.30 Diverticulosis of large intestine without perforation or abscess without bleeding; F17.210 Nicotine dependence, cigarettes, uncomplicated; E66.9 Obesity, unspecified; Z68.32 Body mass index [BMI] 32.0-32.9, adult; Z79.899 Other long term (current) drug therapy; Z79.82 Long term (current) use of aspirin; Z80.9 Family history of malignant neoplasm, unspecified
CPT/HCPCS: 36415; 85025; 87081; 88309; 88341; 88342; 88360

== ENCOUNTER → 2020-12-13 | Outpatient (CLI) | payer MEDICARE, OTHER ==
[~2020-12-13] MED LIST changes: +ACHD5005 PO
--- NOTE | 2020-12-13 15:21 | Diagnostic Imaging Report ---
CT CHEST SCREENING WO TECHNIQUE: Low-dose unenhanced CT of the chest was performed according to the screening protocol. Coronal MIP and sagittal MPR reformats are created. Automatic exposure controls were utilized to keep dose as low as reasonably achievable. INDICATION: 51 pack year history of smoking. Current smoker. COMPARISON: Low-dose CT chest of 12/11/2019 FINDINGS: Pulmonary findings: No endoluminal nodule within the trachea. Mild centrilobular emphysema is unchanged. Subpleural 4 mm nodule within the right middle lobe is stable (image 140). No new pulmonary nodules have developed. No consolidation. Extrapulmonary findings: No pericardial or pleural effusion. No axillary or mediastinal lymphadenopathy. The heart is normal in size without pericardial effusion. Stable coronary artery stents and/or calcification. Assessment of anatomy is limited by low-dose technique but is grossly normal. No concerning focal osseous lesions. IMPRESSION: No change to indicate clinically active lung cancer. Lung-RADS category: 2 - Benign appearance or behavior Recommendations: Continued annual screening with low-dose CT in 12 months. Dictated by: Dictated on workstation # [id number]
== END ==
LOC: RAD 14:45
PROVIDERS: ATTEND Nurse Practitioner Family
DX: Z12.2 Encounter for screening for malignant neoplasm of respiratory organs (principal); F17.210 Nicotine dependence, cigarettes, uncomplicated
CPT/HCPCS: 71271

== ENCOUNTER 2021-09-29 05:32 | Outpatient (CLI) | payer MEDICARE, OTHER ==
[~2021-09-29] VITALS: Ht 182.9 cm; Wt 108.9 kg
[~2021-09-29 05:32] MED LIST changes: +MONT-40 PO; -MONT10TA32 PO
[2021-09-29] MEDS ORDERED: FLUT1DIS26 IH (12:24)
[2021-09-29] MEDS ORDERED: CETI10TA17 PO (12:24)
[2021-09-29] MEDS ORDERED: ATEN25TA PO (12:24)
[2021-09-29] MEDS ORDERED: TIOT18CA2 IH (12:24)
[2021-09-29] MEDS ORDERED: FLUT16SP22 NS (12:24)
== END 2021-09-29 12:58 | disposition home or self-care (01) ==
LOC: PREOP 05:32
PROVIDERS: ATTEND Surgery
DX: Z01.818 Encounter for other preprocedural examination (principal)

== ENCOUNTER 2021-10-10 06:59 | Day surgery (SDC) | payer MEDICARE, OTHER ==
[~2021-10-10] VITALS: Ht 183 cm; Wt 108.9 kg
[~2021-10-10 06:59] MED LIST changes: +CETI10TA17 PO; +FLUT16SP22 NS; +FLUT1DIS26 IH; +TIOT18CA2 IH
[2021-10-10] MEDS ORDERED: LACTATED RINGERS 1,000 ML IV STA (07:14)
[2021-10-10] MEDS ORDERED: LACTATED RINGERS 1,000 ML IV ONE (07:22)
[2021-10-10 07:30] VITALS: BP 126/82
--- NOTE | 2021-10-10 09:26 | Anesthesia-General Post-Op ---
MAC Patient Condition Mental Status/LOC: Same as Preop Cardiovascular: Satisfactory Nausea/Vomiting: Absent Respiratory: Satisfactory Pain: Controlled Complications: Absent Post Op Complications Complications None Follow Up Care/Instructions Patient Instructions None needed. Anesthesiology Discharge Order Discharge Order Patient is doing well, no complaints, stable vital signs, no apparent adverse anesthesia problems. No complications reported per nursing. CHRIS CARR CRNA Oct 10, 2021 09:26
[2021-10-10] MEDS ORDERED: PROPOFOL INJECTION 50 ML IV ONE (09:29)
[2021-10-10 09:55] VITALS: BP 90/54
[2021-10-10 10:00] VITALS: BP 94/51
--- NOTE | 2021-10-10 10:02 | Progress Note-Post Operative ---
Post-Operative Progess Note Surgeon (s)/Teaching Assistant (s) Surgeon KELSEA COON DO Teaching Assistant: Eliucesario Story, MSIII Pre-Operative Diagnosis Hx of LAMN Post-Operative Diagnosis Polyps int hemorrhoids Procedure & Operative Findings Date of Procedure 10/10/21 Procedure Performed/Findings Colonoscopy with hot bx PROCEDURE NOTE: After informed consent was obtained, the patient was brought to the endoscopy suite, placed in bed in left lateral decubitus position. He was administered IV sedation by the CEMENT FINISHER who then monitored his vitals the entire time, heart rate, blood pressure and pulse ox and the scope was inserted, pushed all the way to about 140 cm and pushed into the cecum, took a picture of area where appendiceal orifice used to be and noted the ileocecal valve. Next, slowly withdrew the scope insufflating to look circumferentially at the patterson starting in the cecum, up the ascending colon. Found a flat polyp here and did a hot biopsy. Then up to the hepatic flexure and down the transverse colon to the splenic flexure. Into the descending colon where the GI genious actually found 3 flat polyps and I found one; did hot biopsies of all of these. Down into the sigmoid colon where I found 2 more polyps and removed them with hot biopsy. Finally, into the rectal vault and retroflexed the scope. Took picture of the internal hemorrhoids. The patient tolerated the procedure. He was recovered in endoscopy suite. Anesthesia Type IV sedation by CEMENT FINISHER Estimated Blood Loss Estimated blood loss (mL): scant Specimens/Packing Specimens Removed asc colon polyp dec colon polyp x 4 sigmoid polyp x 2 KELSEA COON DO Oct 10, 2021 10:02
--- NOTE | 2021-10-10 10:03 | Endoscopy Discharge Instruct ---
Endo Procedure/Findings Findings 1.: Polyp 2.: Internal Hemorrhoids Discharge Instructions - Activity: You might feel a little sleepy until tomorrow. This is due to the medicine you received to relax you. Until tomorrow, you should: NOT drive a car, operate machinery or power tools. NOT drink any alcoholic beverages. NOT make any important decisions or sign importortant papers. Do not return to work until tomorrow, unless otherwise instructed. Resume previous activities tomorrow. Diet: Start by taking liquids. If you tolerate liquids, advance to solid food. 1.: Colonscopy in 5 years Notify Physician - If you experience excessive bleeding, unusual abdominal pain, fever, or chest pain, contact your doctor immediately. KELSEA COON DO Oct 10, 2021 10:03
[2021-10-10 10:05] VITALS: BP 92/54
[2021-10-10 10:15] VITALS: BP 117/70
== END 2021-10-10 10:25 | disposition home or self-care (01) ==
LOC: ENDO 06:59
PROVIDERS: ATTEND Surgery
DX: D12.4 Benign neoplasm of descending colon (principal); D12.2 Benign neoplasm of ascending colon; K63.5 Polyp of colon; K64.8 Other hemorrhoids; D37.3 Neoplasm of uncertain behavior of appendix; F17.210 Nicotine dependence, cigarettes, uncomplicated; Z79.01 Long term (current) use of anticoagulants
CPT/HCPCS: 88305

== ENCOUNTER → 2022-02-15 | Outpatient (CLI) | payer MEDICARE, OTHER ==
[~2022-02-15] MED LIST changes: +RT-ALBUTEROL SULF 2.5 MG/3 ML PRE-MIX VIAL INH ONE
== END ==
LOC: RT 08:30
PROVIDERS: ATTEND Nurse Practitioner Family
DX: J44.9 Chronic obstructive pulmonary disease, unspecified (principal); F17.200 Nicotine dependence, unspecified, uncomplicated
CPT/HCPCS: 94060; 94726; 94729

== ENCOUNTER → 2022-09-21 | Outpatient (CLI) | payer MEDICARE, OTHER ==
[~2022-09-21] MED LIST changes: +ALBU8.5H6 IH; -RT-ALBUINH IH; -RT-ALBUTEROL SULF 2.5 MG/3 ML PRE-MIX VIAL INH ONE
== END ==
LOC: CARD 08:50
PROVIDERS: ATTEND Internal Medicine Cardiovascular Disease
DX: I35.1 Nonrheumatic aortic (valve) insufficiency (principal); I25.5 Ischemic cardiomyopathy
CPT/HCPCS: 93306

== ENCOUNTER → 2022-10-17 | Outpatient (CLI) | payer MEDICARE, OTHER ==
[~2022-10-17] VITALS: Ht 182 cm; Wt 100.0 kg
[~2022-10-17] MED LIST changes: +REGADENOSON 0.4 MG/5 ML SYR (LEXISCAN) IV ONE
[2022-10-17] MEDS: CATHETER FLUSH 10 ML SYR IVP PRN ×2 (07:11→09:01)
[2022-10-17 08:55] VITALS: BP 116/77
--- NOTE | 2022-10-19 11:53 | STRESS TEST ---
DATE OF SERVICE: 10/17/2022 RESTING AND POST REGADENOSON TECHNETIUM-99M TETROFOSMIN SPECT CT IMAGING ORDERING PHYSICIAN: Sigrid Simpson APRN PRIMARY PHYSICIAN: Dr. Montez. CLINICAL DIAGNOSIS: Coronary artery disease. Baseline images were carried out with a 10.7 mCi technetium-99m tetrofosmin. This was followed by 0.4 mg regadenoson and 29.6 mCi of technetium-99m tetrofosmin for stress imaging. The electrocardiogram showed sinus rhythm at baseline. There is evidence of old inferolateral myocardial infarction. The electrocardiogram did not change significantly with regadenoson infusion. The patient tolerated the procedure well. Review of images at rest and following stress indicates a large inferolateral perfusion defect, which is predominantly fixed. Gated images show inferolateral akinesis. Left ventricular ejection fraction is calculated to be 36%. Left ventricular end-diastolic volume is approximately 160 mL, indicating at least moderate cardiomegaly. CONCLUSIONS: 1. Large inferolateral myocardial infarction with minimal gunnar-infarct ischemia. 2. Inferolateral akinesis. 3. Impairment of global left ventricular systolic function with a calculated ejection fraction of 36%. 4. Moderate cardiomegaly. Job ID: [id number] DocumentID: [id number] Dictated Date: 10/19/2022 08:19:39 Clinical Director Date: 10/19/2022 11:23:00 Dictated By: JAEL ASHER MD; LULU; FACP; FACC;
== END ==
LOC: CARD 06:58
PROVIDERS: ATTEND Nurse Practitioner Family
DX: I25.10 Atherosclerotic heart disease of native coronary artery without angina pectoris (principal)
CPT/HCPCS: 78452; 93017; A9502